=== PATIENT | female | born 1945 | race Asian ===

== ENCOUNTER 2016-10-25 11:50 | Inpatient (IN) | payer MEDICARE, OTHER ==
[~2016-10-25] VITALS: Ht 154.9 cm; Wt 65.6 kg
[~2016-10-25 11:50] MED LIST: AMIO200T2 PO; AMLO5TAB4 PO; APIX5TAB PO; ATOR80TA75 PO; CARAS PO; CARV12.579 PO; CLOP75TA27 PO; HYDR-3498 PO; HYDR-3672 PO; HYG25 PO; LEVO50TA83 PO; LIPA1CAP6 PO; LISI20TA11 PO; MONT10TA21 PO; NITR0.4T6 SL; PANT40VI7 PO
[2016-10-25] MEDS ORDERED: SODIUM CHLORIDE 0.9% 1L BAG IV* STA (13:14)
[2016-10-25] MEDS ORDERED: CEFEPIME 2GM/50 ML (PMX) 50 ML IVPB STA (13:14)
[2016-10-25] MEDS ORDERED: AMLO-147 PO (13:30)
[2016-10-25] MEDS ORDERED: VANCOMYCIN 1 GM (PMX) 250 ML IVPB ONE (13:30)
[2016-10-25] MEDS ORDERED: ACETAMINOPHEN 325 MG TAB PO ONE (13:30)
[2016-10-25] MEDS ORDERED: PANT40TA4 PO (13:32)
[2016-10-25] MEDS ORDERED: ISOS60TA PO (13:32)
[2016-10-25] MEDS ORDERED: ZOLP10TA5 PO (13:33)
[2016-10-25] MEDS ORDERED: METO50TA16 PO (13:33)
[2016-10-25] MEDS ORDERED: ASPI-664 PO (13:34)
[2016-10-25] MEDS ORDERED: MIRT7.5T8 PO (13:34)
[2016-10-25 13:36] VITALS: TEMP 100
[2016-10-25 13:42] LABS: ADD SCAN DIFF NO
[2016-10-25 13:46] LABS: BASOPHILS % 0.2 % (0.0-2.0); EOSINOPHILS % 0.1 % (0.0-7.0); HEMATOCRIT 31.5 % (37.0-47.0); LYMPHOCYTES # 2.1 10^3/ul (0.8-2.9); LYMPHOCYTES % 14.3 % (15.0-51.0); MEAN CORPUSCULAR HEMOGLOBIN 30.3 pg (29.0-33.0); MEAN CORPUSCULAR HGB CONC 31.7 g/dl (32.0-37.0); MEAN CORPUSCULAR VOLUME 95.5 fl (82.0-101.0); MEAN PLATELET VOLUME 10.8 fl (7.4-10.4); MONOCYTE # 1.4 10^3/ul (0.3-0.9); MONOCYTES % 9.4 % (0.0-11.0); NEUTROPHIL # 11.1 10^3/ul (1.6-7.5); NEUTROPHILS % 75.5 % (39.0-77.0); PLATELET COUNT 371 10^3/UL (140-415); RED CELL DISTRIBUTION WIDTH 12.8 % (11.5-14.5); WHITE BLOOD COUNT 14.7 10^3/ul (4.8-10.8)
[2016-10-25 13:54] LABS: INR 0.98
[2016-10-25 13:55] LABS: PARTIAL THROMBOPLASTIN TIME 32.4 Sec (25.0-35.0)
[2016-10-25 13:58] LABS: ALBUMIN 3.8 g/dl (3.3-4.9); BILIRUBIN,INDIRECT 0.4 mg/dl (0-1.1); BILIRUBIN,TOTAL 0.4 mg/dl (0.2-1.3); CALCIUM 8.7 mg/dl (8.4-10.2); CREATININE 1.62 mg/dl (0.44-1.00); POTASSIUM 4.3 mmol/L (3.5-5.1); TOTAL PROTEIN 7.6 g/dl (6.1-8.1)
--- NOTE | 2016-10-25 14:06 | RADRPT ---
PROCEDURE: XR Chest. CLINICAL INDICATION: Cough TECHNIQUE: Chest AP portable. COMPARISON: 11/26/2015 FINDINGS: The mediastinal structures are unremarkable. There is calcification of the thoracic aorta (consiste nt with atherosclerosis). There is mild cardiomegaly. There is congestive heart failure with pulmo nary edema (superimposed pneumonia cannot be ruled out). The pleural spaces are unremarkable. Ther e is diffuse osteopenia. No fracture identified. IMPRESSION: Mild cardiomegaly. Congestive heart failure with pulmonary edema (superimposed pneumonia cannot be ruled out). RPTAT: HGDB .Blayne Sweeney MD, Date Time Electronically viewed and signed by .Blayne Sweeney MD, on 10/25/2016 14:06 .B/
[2016-10-25 14:09] LABS: TROPONIN-I 0.014 ng/ml (0.00-0.12)
--- NOTE | 2016-10-25 14:28 | ERA ---
ER Documentation Chief Complaint Date/Time DATE: 10/25/16 TIME: 14:25 Chief Complaint COUGH & CONGESTION X6 DAYS, SAT 80% HPI Patient is a 71-year-old female with coronary disease, stroke, hypertension, and high cholesterol presents with shortness of breath. The daughter says that the mother started with a cold on Monday. Patient seemed confused and "out of it" on Monday per the daughter. The patient has not wanted to eat for the past few days. The patient has a strong cough which started today. The patient had a fever on Monday and was given Tylenol. There is no home oxygen. The patient was admitted a few months ago at [facility] per the daughter. Upon review of old medical records this the patient's fourth visit to the ER since 2013. The primary doctor is Dr. Gerald Roland. ROS All systems reviewed and are negative except as per history of present illness. Medications Home Meds Active Scripts Amiodarone Hcl* (Amiodarone Hcl*) 200 Mg Tablet, 200 MG PO DAILY for 30 Days, # 30 TAB Prov:RADHA PEÑA MD 12/06/15 Reported Medications Mirtazapine* (Mirtazapine*) 7.5 Mg Tablet, 7.5 MG PO HS, TAB 10/25/16 Aspirin* (Aspirin* EC) 81 Mg Tablet., 81 MG PO DAILY, TAB 10/25/16 Zolpidem Tartrate* (Zolpidem Tartrate*) 10 Mg Tablet, 10 MG PO QHS Y for INSOMNIA, #30 TAB 10/25/16 Metoprolol Succinate* (Toprol XL*) 50 Mg Tab.er.24h, 50 MG PO DAILY, #30 TAB 10/25/16 Pantoprazole* (Pantoprazole*) 40 Mg Tablet.dr, 40 MG PO AC BREAKFAST, TAB 10/25/16 Isosorbide Mononitrate* (Isosorbide Mononitrate*) 60 Mg Tab.er.24h, 60 MG PO DAILY, TAB 10/25/16 Amlodipine Besylate* (Amlodipine Besylate*) 10 Mg Tablet, 10 MG PO DAILY, #30 TAB 10/25/16 Montelukast Sodium* (Singulair*) 10 Mg Tablet, 10 MG PO QHS, #30 TAB 11/26/15 Clopidogrel Bisulfate (Clopidogrel) 75 Mg Tablet, 75 MG PO DAILY, #30 TAB 11/26/15 Atorvastatin* (Atorvastatin*) 80 Mg Tablet, 80 MG PO HS, TAB 03/01/14 Nitroglycerin* (Nitroglycerin* SL) 0.4 Mg Tab.subl, 0.4 MG SL Q5MIN Y for CHEST PAIN, BOTTLE 03/01/14 Discontinued Reported Medications Amlodipine Besylate* (Norvasc*) 5 Mg Tablet, 5 MG PO DAILY, TAB 11/26/15 Vpwskp-Ebgftxtd-Hhfsudu* ([place] CARPIO* 24,000) 24,000 L-76,000-120,000 Unit Capsule., 1 CAP PO TID, CAP 03/01/14 Discontinued Scripts Chlorthalidone* (Hygroton*) 25 Mg Tab, 25 MG PO DAILY for 60 Days, TAB Prov:MONI LEACH 12/10/15 Levothyroxine Sodium* (Synthroid*) 50 Mcg Tablet, 50 MCG PO BEFORE BREAKFAST, # 30 TAB Prov:RADHA PEÑA MD 12/06/15 Lisinopril* (Lisinopril*) 20 Mg Tablet, 40 MG PO DAILY for 60 Days, #60 TAB Prov:RADHA PEÑA MD 12/06/15 Sucralfate* (Carafate* (Pediatric)) 100 Mg/Ml Susp, 1 GM PO QID for 30 Days, # 120 Prov:RADHA PEÑA MD 12/06/15 Pantoprazole* (Protonix* IV) 40 Mg Soln, 40 MG PO BID@06,18 for 30 Days, #60 Prov:RADHA PEÑA MD 12/06/15 Hydrocodone Bit/Acetaminophen (Anexsia 5-325 Mg Tablet) 1 Tab Tablet, 1 TAB PO Q6H Y for MODERATE PAIN LEVEL 4-6 for 30 Days, #120 TAB Prov:RADHA PEÑA MD 12/06/15 Hydralazine Hcl* (Hydralazine Hcl*) 50 Mg Tab, 50 MG PO TID for 30 Days, #90 TAB Prov:RADHA PEÑA MD 12/06/15 Carvedilol* (Carvedilol*) 12.5 Mg Tablet, 12.5 MG PO BID for 30 Days, #60 TAB Prov:RADHA PEÑA MD 12/06/15 Apixaban* (Eliquis*) 5 Mg Tablet, 2.5 MG PO BID for 30 Days, #60 TAB Prov:RADHA PEÑA MD 12/06/15 Allergies Allergies: Coded Allergies: No Known Allergy (Unverified , 10/25/16) PMhx/Soc History of Surgery: Yes (stent placementx 3) Anesthesia Reaction: No Hx Neurological Disorder: Yes (CVA-2016) Hx Respiratory Disorders: No Hx Cardiac Disorders: Yes (HIGH BP,CAD) Hx Psychiatric Problems: No Hx Miscellaneous Medical Probl: Yes (CAD, HTN, dyslipidemia, diastolic dysfucntion) Hx Alcohol Use: No Hx Substance Use: No Hx Tobacco Use: No Smoking Status: Former smoker FmHx Family History: diabetes Physical Exam Vitals Vital Signs Date Time Temp Pulse Resp B/P Pulse Ox O2 Delivery O2 Flow Rate FiO2 10/25/16 13:36 100.0 59 29 96/77 97 Non Rebreather 15.0 10/25/16 13:35 Non Rebreather 15.0 10/25/16 13:33 Non Rebreather 15 10/25/16 12:14 99.3 61 28 154/70 80 Physical Exam Const: Mild distress secondary to shortness of breath Head: Atraumatic Eyes: Normal Conjunctiva ENT: Normal External Ears, Nose and Mouth. Neck: Full range of motion..~ No meningismus. Resp: Rhonchorous breath sounds bilaterally Cardio: Regular rate and rhythm, no murmurs Abd: Soft, non tender, non distended. Normal bowel sounds Skin: No petechiae or rashes Back: No midline or flank tenderness Ext: No cyanosis, or edema Neur: Awake but dense weakness of the left upper extremity secondary to stroke previously Result Diagram: 10/25/16 1335 Results 24 hrs Laboratory Tests Test 10/25/16 13:35 White Blood Count 14.710^3/ul Red Blood Count 3.3010^6/ul Hemoglobin 10.0g/dl Hematocrit 31.5% Mean Corpuscular Volume 95.5fl Mean Corpuscular Hemoglobin 30.3pg Mean Corpuscular Hemoglobin Concent 31.7g/dl Red Cell Distribution Width 12.8% Platelet Count 39710^3/UL Mean Platelet Volume 10.8fl Neutrophils % 75.5% Lymphocytes % 14.3% Monocytes % 9.4% Eosinophils % 0.1% Basophils % 0.2% Nucleated Red Blood Cells % 0.0/100WBC Neutrophils # 11.110^3/ul Lymphocytes # 2.110^3/ul Monocytes # 1.410^3/ul Eosinophils # 0.010^3/ul Basophils # 0.010^3/ul Nucleated Red Blood Cells # 0.010^3/ul Prothrombin Time 13.0Sec Prothrombin Time Ratio 1.0 INR International Normalized Ratio 0.98 Activated Partial Thromboplast Time 32.4Sec Current Medications Medications (Trade) Dose Ordered Sig/Sheldon Route PRN Reason Start Time Stop Time Status Last Admin Dose Admin Sodium Chloride 2110 ml 2,110 ml BOLUS OVER 2 HOURS STAT IV* 10/25/16 13:14 10/25/16 13:17 DC 10/25/16 13:41 Cefepime HCl 50 ml @ 100 mls/hr ONCE STAT IVPB 10/25/16 13:14 10/25/16 13:43 DC 10/25/16 14:12 Vancomycin HCl (Vancocin) 250 ml @ 125 mls/hr ONCE ONCE IVPB 10/25/16 13:30 10/25/16 15:29 Acetaminophen (Tylenol Tab) 650 mg ONCE ONCE PO 10/25/16 13:30 10/25/16 13:31 DC 10/25/16 13:41 Ondansetron HCl (Zofran Inj) 4 mg BRIDGE ORDER PRN IV NAUSEA AND/OR VOMITING 10/25/16 14:30 10/26/16 14:29 Acetaminophen (Tylenol Tab) 650 mg ER BRIDGE PRN PO MILD PAIN/FEVER 10/25/16 14:30 10/26/16 14:29 Procedures/MDM EKG read by me: Rate/Rhythm: Regular rate and rhythm at a rate of 63 Intervals: Prolonged QTC of 515 Impression: Sinus rhythm with prolonged QTC Chest x-ray shows cardiomegaly with pulmonary edema and possible pneumonia per radiology. Patient is a 71-year-old female with multiple comorbidities who presents with symptoms consistent with acute pneumonia. The patient has hypoxia as well. The patient will be given 30 mL/kg fluid bolus as well as vancomycin and cefepime empirically for a possible healthcare associated pneumonia. The patient will be admitted to the care of Dr. Mcdonnell from the panel team as the patient has been admitted to the panel team in the past. Prognosis is poor given the patient's age and comorbidities. At this point I doubt sepsis but the patient is pending a lactic acid at this time. The patient will be admitted to a medical surgical bed. At this point I doubt pneumothorax or pulmonary embolism. I doubt acute coronary syndrome. Critical Care: Time: 35 minutes excluding all billable procedures. Treatments/Evaluations: Close monitoring and treatment of unstable vital signs, cardiorespiratory, and neurologic status, while maintaining tight balance of fluid, respiratory, and cardiac interventions. Departure Diagnosis: Primary Impression: Hypoxia Additional Impressions: Cough Pneumonia Qualified Code: J18.9 - Pneumonia due to infectious organism, unspecified laterality, unspecified part of lung Leukocytosis Qualified Code: D72.829 - Leukocytosis, unspecified type Anemia Qualified Code: D64.9 - Anemia, unspecified type Condition: Serious AJ LUTZ MD Oct 25, 2016 14:28
[2016-10-25] MEDS ORDERED: ACETAMINOPHEN 325 MG TAB PO PRN (14:30)
[2016-10-25] MEDS ORDERED: ONDANSETRON 4 MG INJ IV PRN ×2 (14:30→15:00)
[2016-10-25] MEDS ORDERED: NACL 0.9% 3 ML SYG IV SCH (15:00)
[2016-10-25] MEDS ORDERED: NA PHOSPHATE/BIPHOS 133 ML ENEMA PR PRN (15:00)
[2016-10-25] MEDS ORDERED: NITROGLYCERIN (SL) 0.4 MG TAB SL PRN (15:00)
[2016-10-25] MEDS ORDERED: VANCOMYCIN IV PER PHARMACY XX SCH (15:00)
[2016-10-25] MEDS ORDERED: MAGNESIUM HYDROXIDE 30ML CUP PO PRN (15:00)
[2016-10-25] MEDS ORDERED: DOCUSATE SODIUM 100 MG CAP PO PRN (15:00)
[2016-10-25] MEDS ORDERED: LORAZEPAM 2 MG INJ IV PRN (15:00)
[2016-10-25] MEDS ORDERED: ZOLPIDEM 5 MG TAB PO PRN (15:00)
[2016-10-25] MEDS ORDERED: hydrALAzine 20 MG INJ IV PRN (15:00)
--- NOTE | 2016-10-25 15:55 | HP ---
DATE OF ADMISSION: 10/25/2016 CHIEF COMPLAINT: Shortness of breath and cough. HISTORY OF PRESENT ILLNESS: A 71-year-old female with past medical history of coronary artery disea se status post PCI placement x3, high cholesterol, stroke 1 year ago, essential hypertension, who wa s brought in by a daughter because she has been having cough and chest congestion for the last 4 to 5 days. She has been having a productive cough at home, also subjective fevers at home. She took N yquil and Tylenol which did not relieve her symptoms. She has also had decreased appetite as well. The patient was not getting better over the weekend, so the caregiver and the daughter became jet rned and decided to bring her in to the emergency room. She had no headaches, dizziness or loss of consciousness. No upper or lower GI bleeding. No nausea, vomiting. No abdominal pain. No changes in her bowel movements. Apparently, the patient has been admitted a few months ago to [facility] per the daughter. Her primary care doctor is Dr. Gerald Roland. PAST MEDICAL HISTORY: As stated above. ALLERGIES: NO KNOWN DRUG ALLERGIES. HOME MEDICATIONS: 1. Plavix 75 mg daily. 2. Amiodarone 200 mg daily. 3. Amlodipine 10 mg daily. 4. Atorvastatin 80 mg at bedtime. 5. Imdur 60 mg daily. 6. Toprol-XL 50 mg daily. 7. Nitroglycerin 0.4 mg sublingual every 5 minutes p.r.n. 8. Aspirin 81 mg daily. 9. Mirtazapine 7.5 mg at bedtime. 10. Ambien 10 mg at bedtime p.r.n. 11. Singulair 10 mg at bedtime. 12. Protonix 40 mg every morning. PAST SURGICAL HISTORY: Cardiac stent placement x3 in the past. SOCIAL HISTORY: Former smoker. She used to smoke half a pack of cigarettes a day for the last 30 y ears, but she quit 5 years ago. No alcohol or drug use. FAMILY HISTORY: Noncontributory. PHYSICAL EXAMINATION: VITAL SIGNS: Today, temperature max 100.0, pulse 59 to 61, respirations 29, blood pressure 96 to 15 4 systolic/77 to 70 diastolic, saturating at 97% on nonrebreather, a flow rate of 15. GENERAL: The patient is sitting up in bed on nonrebreather. Daughter is at the bedside. HEENT: Pupils equal, round, react to light. Extraocular muscles intact. NECK: Supple, no thyromegaly. LUNGS: Rhonchus breath sounds bilaterally, no wheezes. CARDIOVASCULAR: S1, S2 heard. No rubs or gallops. ABDOMEN: Soft, nontender, nondistended. Normal bowel sounds. No rebound or guarding. MUSCULOSKELETAL: She has got 1+ pitting edema bilateral lower extremities to the mid calves. NEUROLOGIC: No focal deficits. LABORATORY DATA: WBC 14.0, hemoglobin 10.0, hematocrit 31.5, platelets of 371. Sodium 136, potassi um 4.3, chloride 102, CO2 of 25, BUN of 37, creatinine 1.6. Back when she was here a year ago, her creatinine was less than 1. Glucose is 158. Lactic acid is 1.2. LFTs are essentially normal excep t AST is a little high at 62. UA is pending. There was a chest x-ray performed that shows mild cardiomegaly, congestive heart failure with pulmon flex edema, superimposed pneumonia cannot be ruled out. ASSESSMENT AND PLAN: A 71-year-old female coming in with shortness of breath and cough with signs o f pneumonia and congestive heart failure exacerbation and renal insufficiency. 1. Shortness of breath. Again secondary to looks like a combination of pneumonia and congestive he art failure, so we will admit her. We will get a cardiology consult. Get an echocardiogram as well . Hold her home blood pressure medicines for now. Consider starting Lasix, although again she has got renal insufficiency, we have to be cautious about that. Keep the head of the bed elevated great er than 30 degrees. Morphine p.r.n., oxygen supplementation as well. Nitroglycerin p.r.n. We will order for check TSH, A1c, lipid panel. Get PT and OT consults as well and speech therapy consult. 2. Renal insufficiency. We will get a renal consult as well and hold off on fluids for now since s he has got signs of congestive heart failure exacerbation. 3. History of coronary artery disease status post stent placement x3 in the past. Again, we are ho lding her home blood pressure medicines except for aspirin and Plavix. We will continue those. We will get a cardiology consult, again repeat the echo. 4. History of stroke in the past. Again, continue aspirin and Plavix. Monitor for now and get PT consult 5. Essential hypertension. Blood pressure is presently stable. Continue to monitor for now. 6. High cholesterol. Check a lipid panel. 7. Gastrointestinal prophylaxis, proton pump inhibitor. 8. Deep venous thrombosis prophylaxis, heparin subcutaneously. Dictated By: ROSS LAY Conf#: [id number] DID#: [id number]
[2016-10-25 15:58] LABS: CK-MB 0.54 ng/ml (0.0-2.4)
[2016-10-25 16:01] LABS: TROPONIN-I 0.012 ng/ml (0.00-0.12)
[2016-10-25] MEDS: FUROSEMIDE 40 MG INJ IV SCH (17:35)
[2016-10-25 17:39] LABS: ALBUMIN 3.2 g/dl (3.3-4.9); POTASSIUM 4.3 mmol/L (3.5-5.1)
[2016-10-25 17:41] LABS: CREATININE 1.48 mg/dl (0.44-1.00)
[2016-10-25 17:42] LABS: ALBUMIN/GLOBULIN RATIO 0.88; BILIRUBIN,INDIRECT 0.4 mg/dl (0-1.1); BILIRUBIN,TOTAL 0.4 mg/dl (0.2-1.3); CALCIUM 7.5 mg/dl (8.4-10.2); TOTAL PROTEIN 6.8 g/dl (6.1-8.1)
[2016-10-25] MEDS ORDERED: PIPER-TAZO 3.375 GM IV (PMX) 100 ML IVPB SCH (18:00)
--- NOTE | 2016-10-25 18:09 | QN ---
Documentation Comment [id number] RENAL CONSULT A/P CHF DEMI POSS SYS HEART FAILURE OLD CVA ASHD LEUCOCYTOSIS PLAN DIURETIC URINE GHADA CARCAMO MD Oct 25, 2016 18:09
[2016-10-25 20:20] VITALS: BP 119/43; RESP 18
[2016-10-25 20:24] VITALS: PULSE 45
[2016-10-25 21:00] VITALS: Ht 154.9 cm; Wt 65.6 kg
[2016-10-25 21:52] LABS: CREATINE KINASE 72 IU/L (23-200)
[2016-10-25 22:01] LABS: CK-MB 1.13 ng/ml (0.0-2.4)
[2016-10-25 22:06] LABS: TROPONIN-I < 0.012 ng/ml (0.00-0.12)
[2016-10-25] MEDS: MONTELUKAST 10 MG TAB PO SCH (22:17)
[2016-10-25] MEDS: ATORVASTATIN 80 MG TAB PO SCH (22:17)
[2016-10-25] MEDS: MIRTAZAPINE 15 MG TAB PO SCH (22:18)
[2016-10-25] MEDS: PIPER-TAZO 3.375 GM IV (PMX) 100 ML IVPB SCH (22:18)
[2016-10-25] MEDS: HEPARIN 5,000 UNIT/0.5 ML VIAL SC SCH (22:45)
[2016-10-25 23:44] VITALS: BP 130/60; RESP 18
[2016-10-26] VITALS (13 sets, daily range): BP systolic 107–152; BP diastolic 54–72; PULSE 44–64; RESP 17–20
[2016-10-26] MEDS: ALBUTEROL/IPRATROPIUM (NEB) 3 ML AMP HHN PRN (03:31)
--- NOTE | 2016-10-26 05:49 | CONS ---
DATE OF ADMISSION: 10/25/2016 DATE OF CONSULTATION: TYPE OF CONSULTATION: Nephrology. Thank you, Dr. Bailey, for kindly asking me to see this patient in nephrology consultation. HISTORY OF PRESENT ILLNESS: The patient is a 71-year-old female whose family is at bedside, has history of CAD, hypertension, history of coronary angiogram and stenting in the past. The patient has a history of carotid artery disease, history of carotid endarterectomy. The patient has a history of CVA, history of hypertension, dyslipidemia, history of paroxysmal atrial fibrillation, history of esophagitis, history of EGD, history of gastritis, presented with shortness of breath and noted to have electrolyte imbalance, so nephrology consultation requested. PAST MEDICAL HISTORY: Briefly as mentioned above, CAD, atrial fibrillation, carotid endarterectomy, hypertension. The patient's other history includes the patient has a history of CVA, insomnia, dyslipidemia. ALLERGY HISTORY: LISTED NEGATIVE. FAMILY HISTORY: Noncontributory. SOCIAL HISTORY: Negative. MEDICATION HISTORY: The patient is on: 1. Amiodarone. 2. Amlodipine. 3. Aspirin. 4. Lipitor. 5. Plavix. 6. Isosorbide. 7. Metoprolol. 8. Mirtazapine. 9. Singulair. 10. Nitroglycerin. 11. Protonix. 12. Ambien. Currently patient is on: 1. Tylenol. 2. [place]. 3. Albuterol. 4. Aspirin. 5. Lipitor. 6. Plavix. 7. Docusate sodium. 8. Lasix. 9. Heparin. 10. Hydralazine. 11. Ativan. 12. Morphine. 13. Nitroglycerin. 14. Zofran. 15. Protonix. 16. Zosyn. 17. Vancomycin. 18. Ambien. REVIEW OF SYSTEMS: RESPIRATORY: The patient complaining of shortness of breath. ____. CARDIOVASCULAR: No chest pain, palpitation. ABDOMEN: Unremarkable. EXTREMITIES: Swelling of the lower extremities. CENTRAL NERVOUS SYSTEM: History of CVA, left-sided weakness. PHYSICAL EXAMINATION: GENERAL: The patient is awake, alert, short of breath, on oxygen. VITAL SIGNS: Pulse 59, blood pressure 96/77. HEENT: Head is atraumatic, normocephalic. Pupils are equal and reactive. No pale conjunctivae or icterus. NECK: Supple. LUNGS: Decreased air entry at both bases and rales noted. CARDIOVASCULAR: S1, S2 normal. Systolic murmur noted. ABDOMEN: Soft, nontender. Bowel sounds present. No palpable mass or hepatosplenomegaly. EXTREMITIES: There is no cyanosis, clubbing. Edema positive. CENTRAL NERVOUS SYSTEM: The patient is awake, alert. Left-sided weakness noted. LABORATORY DATA: WBC 14.7, hematocrit 31.5, platelet count of 371. Sodium 138 , potassium 4.3, BUN 35, creatinine 1.48. ca 7.5. BNP . Albumin 3.2, globulin 3.60. IMAGING: Patient's chest x-ray: Congestive heart failure with pulmonary edema. IMPRESSION: 1. The patient has acute congestive heart failure. 2. Acute kidney injury due to congestive heart failure, possible systolic heart failure. 3. The patient has leukocytosis. 4. Hypocalcemia. 5. Elevated BNP. 6. History of paroxysmal atrial fibrillation. 7. History of left carotid endarterectomy. 8. History of congestive heart failure. PLAN: Obtain UA, urine sodium and creatinine, urine albumin/creatinine ratio. The patient is currently on diuretic, will benefit from 2D echo. The patient's electrolytes will be monitored very closely. The patient will have further recommendation made when above data is available and during course of hospitalization. Thank you, Dr. Bailey, for kindly asking me to see this patient in nephrology consultation. Dictated By: GHADA VALENCIA MD BS/NTS Conf#: [id number] DID#: [id number] MTDD
[2016-10-26] MEDS: PIPER-TAZO 3.375 GM IV (PMX) 100 ML IVPB SCH ×3 (06:08→22:06)
[2016-10-26 07:09] LABS: ADD UMIC YES; URINE BILIRUBIN (Dip) NEGATIVE (NEGATIVE); URINE BLOOD (Dip) TRACE (NEGATIVE); URINE COLOR LT. YELLOW (YELLOW); URINE GLUCOSE (Dip) NEGATIVE (NEGATIVE); URINE KETONES (Dip) NEGATIVE (NEGATIVE); URINE LEUKOCYTE ESTERASE (Dip) NEGATIVE (NEGATIVE); URINE NITRITE (Dip) NEGATIVE (NEGATIVE); URINE TOTAL PROTEIN (Dip) TRACE (NEGATIVE); URINE UROBILINOGEN (Dip) 0.2 E.U./dL (0.1-1.0)
[2016-10-26 07:18] LABS: URIC ACID CRYSTALS,URINE MODERATE; URINE RBCS 0-2 /HPF (0)
[2016-10-26 08:01] LABS: CHOL/HDL RATIO 2.5 RATIO
[2016-10-26 08:49] LABS: ADD SCAN DIFF NO
[2016-10-26 08:50] LABS: BASOPHILS % 0.1 % (0.0-2.0); EOSINOPHILS % 0.2 % (0.0-7.0); HEMATOCRIT 29.9 % (37.0-47.0); HEMOGLOBIN 9.1 g/dl (12.0-16.0); LYMPHOCYTES # 1.2 10^3/ul (0.8-2.9); LYMPHOCYTES % 8.2 % (15.0-51.0); MEAN CORPUSCULAR HEMOGLOBIN 29.5 pg (29.0-33.0); MEAN CORPUSCULAR HGB CONC 30.4 g/dl (32.0-37.0); MEAN CORPUSCULAR VOLUME 97.1 fl (82.0-101.0); MEAN PLATELET VOLUME 10.4 fl (7.4-10.4); MONOCYTE # 1.1 10^3/ul (0.3-0.9); MONOCYTES % 7.8 % (0.0-11.0); NEUTROPHIL # 11.9 10^3/ul (1.6-7.5); NEUTROPHILS % 83.1 % (39.0-77.0); PLATELET COUNT 361 10^3/UL (140-415); RED BLOOD COUNT 3.08 10^6/ul (4.20-5.40); RED CELL DISTRIBUTION WIDTH 12.6 % (11.5-14.5); WHITE BLOOD COUNT 14.4 10^3/ul (4.8-10.8)
[2016-10-26] MEDS: PANTOPRAZOLE (EC) 40 MG TAB PO SCH (09:14)
[2016-10-26] MEDS: CLOPIDOGREL 75 MG TAB PO SCH (09:14)
[2016-10-26] MEDS: ASPIRIN (EC) 81 MG TAB PO SCH (09:14)
[2016-10-26] MEDS: FUROSEMIDE 40 MG INJ IV SCH (09:14)
[2016-10-26] MEDS: HEPARIN 5,000 UNIT/0.5 ML VIAL SC SCH ×2 (09:25→21:00)
[2016-10-26 09:26] LABS: THYROID STIMULATING HORMONE 4.58 MIU/L (0.465-4.680)
--- NOTE | 2016-10-26 10:31 | PN ---
Date/Time of Note Date/Time of Note DATE: 10/26/16 TIME: 10:27 Assessment/Plan VTE Prophylaxis VTE Prophylaxis Intervention: heparin Lines/Catheters IV Catheter Type (from Nrs): Saline Lock Urinary Cath still in place: No Assessment/Plan Chief Complaint/Hosp Course ASSESSMENT AND PLAN: 71-year-old female coming in with shortness of breath and cough with signs of pneumonia and congestive heart failure exacerbation and renal insufficiency. 1. Shortness of breath. Again secondary to looks like a combination of pneumonia and congestive heart failure - f/u cardiology consult rec's, echocardiogram as well. - Hold her home blood pressure medicines for now. - continue IV Lasix, although again she has got renal insufficiency, we have to be cautious about that. - Keep the head of the bed elevated greater than 30 degrees. Morphine p.r.n., oxygen supplementation as well. Nitroglycerin p.r.n. -f/u PT and OT consults as well - will check ABG and get pulm consult as well. 2. Renal insufficiency - appreciate renal consult as well - continue hold off on fluids for now since she has got signs of congestive heart failure exacerbation. - monitor Bun/Cr levels, I/O's 3. History of coronary artery disease status post stent placement x3 in the past. - Again, we are holding her home blood pressure medicines - continue aspirin and Plavix, cardiology consult, again f/u echo. 4. History of stroke in the past. Again, continue aspirin and Plavix. Monitor for now and get PT consult 5. Essential hypertension. Blood pressure is presently stable. Continue to monitor for now. 6. High cholesterol. Check a lipid panel. 7. Gastrointestinal prophylaxis, proton pump inhibitor. 8. Deep venous thrombosis prophylaxis, heparin subcutaneously. Problems: Subjective 24 Hr Interval Summary Free Text/Dictation Pt still requiring NRB, had some desat when ambulating today. Seen by ST and renal teams. Exam/Review of Systems Vital Signs Vitals Vital Signs Date Time Temp Pulse Resp B/P Pulse Ox O2 Delivery O2 Flow Rate FiO2 10/26/16 08:18 60 10/26/16 07:17 98.6 20 151/67 96 10/26/16 03:33 Non Rebreather Mask 15.0 100 Intake and Output 10/25/16 10/25/16 10/26/16 15:00 23:00 07:00 Intake Total 50 ml 2460 ml 120 ml Balance 50 ml 2460 ml 120 ml Exam GENERAL: The patient is sitting up in bed on nonrebreather. Daughter is at the bedside. HEENT: Pupils equal, round, react to light. Extraocular muscles intact. NECK: Supple, no thyromegaly. LUNGS: Rhonchus breath sounds bilaterally, no wheezes. CARDIOVASCULAR: S1, S2 heard. No rubs or gallops. ABDOMEN: Soft, nontender, nondistended. Normal bowel sounds. No rebound or guarding. MUSCULOSKELETAL: She has got 1+ pitting edema bilateral lower extremities to the mid calves. NEUROLOGIC: No focal deficits. Results Result Diagram: 10/26/16 0653 10/25/16 1700 Results 24 hrs Laboratory Tests Test 10/25/16 13:35 10/25/16 15:30 10/25/16 17:00 10/25/16 21:25 White Blood Count 14.7 H Red Blood Count 3.30 L Hemoglobin 10.0 L Hematocrit 31.5 L Mean Corpuscular Volume 95.5 Mean Corpuscular Hemoglobin 30.3 Mean Corpuscular Hemoglobin Concent 31.7 L Red Cell Distribution Width 12.8 Platelet Count 371 Mean Platelet Volume 10.8 #H Neutrophils % 75.5 Lymphocytes % 14.3 L Monocytes % 9.4 Eosinophils % 0.1 Basophils % 0.2 Nucleated Red Blood Cells % 0.0 Neutrophils # 11.1 H Lymphocytes # 2.1 Monocytes # 1.4 H Eosinophils # 0.0 Basophils # 0.0 Nucleated Red Blood Cells # 0.0 Prothrombin Time 13.0 Prothrombin Time Ratio 1.0 INR International Normalized Ratio 0.98 Activated Partial Thromboplast Time 32.4 Sodium Level 136 138 Potassium Level 4.3 4.3 Chloride Level 102 107 Carbon Dioxide Level 25 22 Anion Gap 13 13 Blood Urea Nitrogen 37 H 35 H Creatinine 1.62 H 1.48 H Glucose Level 158 132 Lactic Acid Level 1.2 1.3 0.7 Calcium Level 8.7 7.5 L Total Bilirubin 0.4 0.4 Direct Bilirubin 0.00 0.00 Indirect Bilirubin 0.4 0.4 Aspartate Amino Transf (AST/SGOT) 62 H 58 H Alanine Aminotransferase (ALT/SGPT) 42 37 Alkaline Phosphatase 212 H 167 H Troponin I 0.014 0.012 < 0.012 Total Protein 7.6 6.8 Albumin 3.8 3.2 L Globulin 3.80 H 3.60 H Albumin/Globulin Ratio 1.00 0.88 Creatine Kinase 71 72 Creatine Kinase Index 0.8 1.6 Creatinine Kinase MB (Mass) 0.54 1.13 B-Type Natriuretic Peptide 5960 H Free Thyroxine 1.56 Test 10/26/16 06:30 10/26/16 06:53 Urine Color LT. YELLOW Urine Clarity CLEAR Urine pH 5.5 Urine Specific [place] 1.020 Urine Ketones NEGATIVE Urine Nitrite NEGATIVE Urine Bilirubin NEGATIVE Urine Urobilinogen 0.2 E.U./dL Urine Leukocyte Esterase NEGATIVE Urine Microscopic RBC 0-2 Urine Microscopic WBC 0-2 Urine Epithelial Cells OCCASIONAL Urine Uric Acid Crystals MODERATE Urine Hemoglobin TRACE Urine Random Creatinine 60.72 Urine Random Sodium 59 Urine Glucose NEGATIVE Urine Total Protein TRACE White Blood Count 14.4 H Red Blood Count 3.08 L Hemoglobin 9.1 L Hematocrit 29.9 L Mean Corpuscular Volume 97.1 Mean Corpuscular Hemoglobin 29.5 Mean Corpuscular Hemoglobin Concent 30.4 L Red Cell Distribution Width 12.6 Platelet Count 361 Mean Platelet Volume 10.4 Neutrophils % 83.1 H Lymphocytes % 8.2 L Monocytes % 7.8 Eosinophils % 0.2 Basophils % 0.1 Nucleated Red Blood Cells % 0.0 Neutrophils # 11.9 H Lymphocytes # 1.2 Monocytes # 1.1 H Eosinophils # 0.0 Basophils # 0.0 Nucleated Red Blood Cells # 0.0 Triglycerides Level 94 Cholesterol Level 77 L LDL Cholesterol, Calculated 28 HDL Cholesterol 30 L Cholesterol/HDL Ratio 2.5 Thyroid Stimulating Hormone (TSH) 4.580 Medications Medications Current Medications Ondansetron HCl (Zofran Inj) 4 mg Q6H PRN IV NAUSEA AND/OR VOMITING; Start at 15:00 Acetaminophen (Tylenol Tab) 650 mg Q6H PRN PO PAIN LEVEL 1-3 OR FEVER; Start at 15:00 Acetaminophen/ Hydrocodone Bitart ([place] (5/325)) 1 tab Q6H PRN PO MODERATE PAIN LEVEL 4-6; Start 10/25/16 at 15:00 Morphine Sulfate (morphine) 2 mg Q4H PRN IV SEVERE PAIN LEVEL 7-10; Start 10/25 at 15:00 Docusate Sodium (Colace) 100 mg Q12H PRN PO CONSTIPATION; Start 10/25/16 at 15: 00 Magnesium Hydroxide (Milk Of Mag) 30 ml DAILY PRN PO CONSTIPATION; Start at 15:00 Sodium Biphosphate/ Sodium Phosphate (Fleet Enema) 133 ml DAILY PRN [place] CONSTIPATION; Start 10/25/16 at 15:00 Heparin Sodium (Porcine) (Heparin (5000 Units/0.5 ml)) 5,000 unit Q12 SC Last administered on 10/26/16 09:25; Admin Dose 5,000 UNIT; Start 10/25/16 at 21:00 Lorazepam (Ativan) 0.5 mg Q6H PRN IV ANXIETY; Start 10/25/16 at 15:00 Vancomycin HCl (Vanco Iv Per Pharmacy) VANCOMYCIN PER PHARMACY NOTE XX ; Start 10/25/16 at 15:00 Hydralazine HCl (Apresoline) 10 mg Q6H PRN IV ELEVATED BLOOD PRESSURE; Start at 15:00 Nitroglycerin (Nitroglycerin (Sl Tab) 0.4 Mg) 1 tab Q5M PRN SL ANGINA; Start at 15:00 Aspirin (Halfprin) 81 mg DAILY PO Last administered on 10/26/16 09:14; Admin Dose 81 MG; Start 10/26/16 at 09:00 Atorvastatin Calcium (Lipitor) 80 mg HS PO Last administered on 10/25/16 22:17 ; Admin Dose 80 MG; Start 10/25/16 at 21:00 Clopidogrel Bisulfate (plaVIX) 75 mg DAILY PO Last administered on 10/26/16 09 :14; Admin Dose 75 MG; Start 10/26/16 at 09:00 Mirtazapine (Remeron) 7.5 mg HS PO Last administered on 10/25/16 22:18; Admin Dose 7.5 MG; Start 10/25/16 at 21:00 Montelukast Sodium (Singulair) 10 mg QHS PO Last administered on 10/25/16 22: 17; Admin Dose 10 MG; Start 10/25/16 at 21:00 Furosemide 40 mg 40 mg DAILY IV Last administered on 10/26/16 09:14; Admin Dose 40 MG; Start 10/25/16 at 15:30 Piperacillin Sod/ Tazobactam Sod 100 ml @ 200 mls/hr Q8 IVPB Last administered on 10/26/16t 06:08; Admin Dose 200 MLS/HR; Start 10/25/16 at 22:00 Vancomycin HCl/ Sodium Chloride (Vancocin/NS) 150 ml @ 75 mls/hr Q24H IVPB ; Start 10/26/16 at 12:00 ROSS ROJO Oct 26, 2016 10:31
[2016-10-26 10:59] LABS: CALCIUM 8.1 mg/dl (8.4-10.2); CREATININE 1.39 mg/dl (0.44-1.00); MAGNESIUM 2.5 mg/dl (1.7-2.5); PHOSPHORUS 4.1 mg/dl (2.5-4.9); POTASSIUM 3.9 mmol/L (3.5-5.1)
[2016-10-26] MEDS: ACETAMINOPHEN 325 MG TAB PO PRN ×2 (11:51→17:52)
[2016-10-26] MEDS ORDERED: VANCOMYCIN 750 MG in SOD CHLORIDE 0.9% 150 ML IVPB SCH (12:00)
[2016-10-26 12:04] LABS: AADO2 Arterial 585.9 mmHg (7.0-24.0); Allen Test ACCEPTAB; Arterial Base Excess -2.1 mmol/L (-3.0-3); Arterial COHb 0.2 % (0.0-3.0); Arterial Fraction of Oxyhgb 95.9 % (93.0-99.0); Arterial HCO3 22.6 mmol/L (22.0-26.0); Arterial MetHb 0.3 % (0.0-1.5); Arterial Total Hemglobin 10.4 g/dl (12.0-18.0); MODE MASK - NRB
[2016-10-26 13:39] LABS: PROTEIN/CREAT RATIO 0.92 RATIO
--- NOTE | 2016-10-26 14:59 | CONS ---
Date/Time of Note Date/Time of Note DATE: 10/26/16 TIME: 14:54 Assessment/Plan Assessment/Plan Additional Assessment/Plan Chest x-ray was reviewed from yesterday which is showing cardio megaly with pulmonary edema. Assessment recommendations; 1. Patient admitted with CHF exacerbation likely from underlying cardiomyopathy. 2. Difficult to rule out superimposed bronchopneumonia. 3. History of hypertension. 4. History of CVA. 5. History of renal insufficiency. Discontinue vancomycin. Add oral Zithromax 500 mg daily. Obtain a 2D echocardiogram. Continue Lasix. Consultation Date/Type/Reason Admit Date/Time Oct 25, 2016 at 14:22 Date of Consultation: Oct 26, 2016 Type of Consultation: Pulmonary Reason for Consultation Pulmonary consultations obtained for evaluation of shortness of breath. History presenting any; patient is a 71-year-old oriented lady who was admitted yesterday came in from home with complaints of shortness of breath going on for the last 3 or 4 days. No history of any fever or chest pain or angina. According to the patient's daughter the patient was doing well prior to the episode. No history of any recent nausea vomiting. There is no history of any high fever, myalgias or arthralgias or sore throat. Past medical history; next 1. History of coronary artery disease status post angioplasty. 2. It is not clear whether patient has any history of congestive heart failure. 3. History of CVA with left hemiplegia. 4. Renal insufficiency. 5. History of hyperlipidemia. 6. History of hypertension. 7. History of cardiac arrhythmia. Medications; were reviewed. Allergies; none. Social history; patient quit smoking 5 years ago has a 97-90-fjnc-year smoking history. No swelling or drug abuse. Family history; patient is . Has 2 daughters. 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 Review of systems; denies any headache, seizures. Any sinus symptoms. Any sore throat, dysphagia. Denies any chest pain, angina. Complains of shortness of breath. Complains of scant cough. Denies any abdominal pain, nausea vomiting. Any melena or hematochezia. Denies any edema. Complains of mild orthopnea. General exam; elderly lady, awake currently in no distress. Past Surgical History Past Surgical Hx: no surgical history Social History Smoking Status: Former smoker Exam/Review of Systems Vital Signs Vitals Vital Signs Date Time Temp Pulse Resp B/P Pulse Ox O2 Delivery O2 Flow Rate FiO2 10/26/16 12:07 64 10/26/16 11:22 98.6 20 146/67 98 10/26/16 03:33 Non Rebreather Mask 15.0 100 Intake and Output 10/25/16 10/25/16 10/26/16 15:00 23:00 07:00 Intake Total 50 ml 2460 ml 120 ml Balance 50 ml 2460 ml 120 ml Exam HEENT exam is; supple neck, positive JVD. No lymphadenopathy. Midline trachea. No thyromegaly. Pharynx is clear. Patient is edentulous and wears dentures. Pupils are small bilaterally. Chest exam is; diminished but clear vessel. S1-S2 audible, no murmurs. Regular rhythm. Abdomen examination; soft, nontender. No organomegaly. Bowel sounds are audible. Extremity exam; no peripheral edema. Pulses 1+ bilaterally. 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 Has stable left hemiplegia. Results Result Diagram: 10/26/16 0653 10/26/16 0653 Results 24 hrs Laboratory Tests Test 10/25/16 15:30 10/25/16 17:00 10/25/16 21:25 10/26/16 06:30 Lactic Acid Level 1.3 0.7 Creatine Kinase 71 72 Creatine Kinase Index 0.8 1.6 Creatinine Kinase MB (Mass) 0.54 1.13 Troponin I 0.012 < 0.012 B-Type Natriuretic Peptide 5960 H Free Thyroxine 1.56 Sodium Level 138 Potassium Level 4.3 Chloride Level 107 Carbon Dioxide Level 22 Anion Gap 13 Blood Urea Nitrogen 35 H Creatinine 1.48 H Glucose Level 132 Calcium Level 7.5 L Total Bilirubin 0.4 Direct Bilirubin 0.00 Indirect Bilirubin 0.4 Aspartate Amino Transf (AST/SGOT) 58 H Alanine Aminotransferase (ALT/SGPT) 37 Alkaline Phosphatase 167 H Total Protein 6.8 Albumin 3.2 L Globulin 3.60 H Albumin/Globulin Ratio 0.88 Urine Color LT. YELLOW Urine Clarity CLEAR Urine pH 5.5 Urine Specific [place] 1.020 Urine Ketones NEGATIVE Urine Nitrite NEGATIVE Urine Bilirubin NEGATIVE Urine Urobilinogen 0.2 E.U./dL Urine Leukocyte Esterase NEGATIVE Urine Microscopic RBC 0-2 Urine Microscopic WBC 0-2 Urine Epithelial Cells OCCASIONAL Urine Uric Acid Crystals MODERATE Urine Hemoglobin TRACE Urine Random Creatinine 60.26 Urine Random Sodium 59 Urine Protein/Creatinine Ratio 0.92 Urine Glucose NEGATIVE Urine Total Protein 56.0 H Test 10/26/16 06:53 10/26/16 10:24 White Blood Count 14.4 H Red Blood Count 3.08 L Hemoglobin 9.1 L Hematocrit 29.9 L Mean Corpuscular Volume 97.1 Mean Corpuscular Hemoglobin 29.5 Mean Corpuscular Hemoglobin Concent 30.4 L Red Cell Distribution Width 12.6 Platelet Count 361 Mean Platelet Volume 10.4 Neutrophils % 83.1 H Lymphocytes % 8.2 L Monocytes % 7.8 Eosinophils % 0.2 Basophils % 0.1 Nucleated Red Blood Cells % 0.0 Neutrophils # 11.9 H Lymphocytes # 1.2 Monocytes # 1.1 H Eosinophils # 0.0 Basophils # 0.0 Nucleated Red Blood Cells # 0.0 Sodium Level 139 Potassium Level 3.9 Chloride Level 109 Carbon Dioxide Level 21 Anion Gap 13 Blood Urea Nitrogen 32 H Creatinine 1.39 H Glucose Level 89 # Hemoglobin A1c 6.0 H Calcium Level 8.1 L Phosphorus Level 4.1 Magnesium Level 2.5 Triglycerides Level 94 Cholesterol Level 77 L LDL Cholesterol, Calculated 28 HDL Cholesterol 30 L Cholesterol/HDL Ratio 2.5 Thyroid Stimulating Hormone (TSH) 4.580 Blood Gas Specimen Source Blood arterial Arterial Blood Date Drawn 10/26/2016 11:20:56 AM Arterial Blood pH (Temp corrected) 7.389 Arterial Blood pCO2 (Temp correct) 38.2 Arterial Blood pO2 (Temp corrected) 88.9 Arterial Blood HCO3 22.6 Arterial Blood Base Excess -2.1 Arterial Blood Oxygen Saturation 96.4 Andrés Test ACCEPTAB Arterial Blood Gas Puncture Site Right Radial Arterial Blood Carboxyhemoglobin 0.2 Arterial Blood Methemoglobin 0.3 Blood Gas A-a O2 Differential 585.9 H Oxyhemoglobin Percent 95.9 Total Hemoglobin 10.4 L Blood Gas Temperature 37.0 Blood Gas Modality MASK - NRB FiO2 100.0 Blood Gas Notified Whom YOELD Blood Gas Notified Time 10/26/2016 12:04:41 PM Medications Medications Current Medications Ondansetron HCl (Zofran Inj) 4 mg Q6H PRN IV NAUSEA AND/OR VOMITING; Start at 15:00 Acetaminophen (Tylenol Tab) 650 mg Q6H PRN PO PAIN LEVEL 1-3 OR FEVER Last administered on 10/26/16 11:51; Admin Dose 650 MG; Start 10/25/16 at 15:00 Acetaminophen/ Hydrocodone Bitart ([place] (5/325)) 1 tab Q6H PRN PO MODERATE PAIN LEVEL 4-6; Start 10/25/16 at 15:00 Morphine Sulfate (morphine) 2 mg Q4H PRN IV SEVERE PAIN LEVEL 7-10; Start 10/25 at 15:00 Docusate Sodium (Colace) 100 mg Q12H PRN PO CONSTIPATION; Start 10/25/16 at 15: 00 Magnesium Hydroxide (Milk Of Mag) 30 ml DAILY PRN PO CONSTIPATION; Start at 15:00 Sodium Biphosphate/ Sodium Phosphate (Fleet Enema) 133 ml DAILY PRN [place] CONSTIPATION; Start 10/25/16 at 15:00 Heparin Sodium (Porcine) (Heparin (5000 Units/0.5 ml)) 5,000 unit Q12 SC Last administered on 10/26/16 09:25; Admin Dose 5,000 UNIT; Start 10/25/16 at 21:00 Lorazepam (Ativan) 0.5 mg Q6H PRN IV ANXIETY; Start 10/25/16 at 15:00 Vancomycin HCl (Vanco Iv Per Pharmacy) VANCOMYCIN PER PHARMACY NOTE XX ; Start 10/25/16 at 15:00 Hydralazine HCl (Apresoline) 10 mg Q6H PRN IV ELEVATED BLOOD PRESSURE; Start at 15:00 Nitroglycerin (Nitroglycerin (Sl Tab) 0.4 Mg) 1 tab Q5M PRN SL ANGINA; Start at 15:00 Aspirin (Halfprin) 81 mg DAILY PO Last administered on 10/26/16 09:14; Admin Dose 81 MG; Start 10/26/16 at 09:00 Atorvastatin Calcium (Lipitor) 80 mg HS PO Last administered on 10/25/16 22:17 ; Admin Dose 80 MG; Start 10/25/16 at 21:00 Clopidogrel Bisulfate (plaVIX) 75 mg DAILY PO Last administered on 10/26/16 09 :14; Admin Dose 75 MG; Start 10/26/16 at 09:00 Mirtazapine (Remeron) 7.5 mg HS PO Last administered on 10/25/16 22:18; Admin Dose 7.5 MG; Start 10/25/16 at 21:00 Montelukast Sodium (Singulair) 10 mg QHS PO Last administered on 10/25/16 22: 17; Admin Dose 10 MG; Start 10/25/16 at 21:00 Furosemide 40 mg 40 mg DAILY IV Last administered on 10/26/16 09:14; Admin Dose 40 MG; Start 10/25/16 at 15:30 Piperacillin Sod/ Tazobactam Sod 100 ml @ 200 mls/hr Q8 IVPB Last administered on 10/26/16 14:15; Admin Dose 200 MLS/HR; Start 10/25/16 at 22:00 Vancomycin HCl/ Sodium Chloride (Vancocin/NS) 150 ml @ 75 mls/hr Q24H IVPB Last administered on 10/26/16 11:44; Admin Dose 75 MLS/HR; Start 10/26/16 at 12 :00 KAYODE FINNEGAN Oct 26, 2016 14:59
[2016-10-26] MEDS: AZITHROMYCIN 250 MG TAB PO SCH (15:50)
--- NOTE | 2016-10-26 18:11 | CONS ---
DATE OF ADMISSION: 10/25/2016 DATE OF CONSULTATION: 10/26/2016 REASON FOR CONSULTATION: Shortness of breath, assess for congestive heart failure. History of ____ and stent placement. Assess for acute coronary syndrome as well as bradycardia. REQUESTING PHYSICIAN: Dr. Rojo from the hospitalist service. HISTORY OF PRESENT ILLNESS: Ms. Bartlett is a very pleasant 71-year-old female with a history of coron flex artery disease, status post prior PTCA and stent placement, the most recently in 2013, hypertens ion, dyslipidemia, ST elevation myocardial infarction in 2013, CVA with left-sided upper and lower e xtremity weakness, cardiac arrhythmia on amiodarone, dyslipidemia who presented with 4 to 5 days of cough, shortness of breath, subjective fevers. Upon arrival, temperature of 99.3, blood pressure 15 4/70, pulse 61, respiratory rate 28, and 80% on room air. Patient's labs were notable for white cou nt 14.7, hemoglobin 10.0, platelet count of 371, a sodium 136, potassium 4.3, creatinine 1.62, BUN 3 7. AST 62, ALT 42. Troponin negative. BNP 5960, LDL 28, HDL 30. UA negative. ABG revealing a pH of 7.389, a PaO2 of 88, pCO2 of 38. The patient underwent a chest x-ray revealing mild cardiomegal y, congestive heart failure, pulmonary edema. The patient's electrocardiogram revealed a rhythm con cerning for possible accelerated junctional rhythm versus a sinus rhythm with somewhat difficult to discern P waves, normal axis, normal intervals, anteroseptal Q's and nonspecific ST-T abnormalities. The patient was subsequently admitted to the floor and since admit to the floor, the patient has h ad bradycardia to the 40s with borderline blood pressures as low as 96 and most recently improved to 147. The patient has ongoing cough, shortness of breath. PAST MEDICAL HISTORY: As above in HPI. MEDICATIONS CURRENTLY IN HOSPITAL: 1. Zithromax. 2. Aspirin 81 mg daily. 3. Plavix 75 mg daily. 4. Protonix 40 mg daily. 5. Zosyn. 6. Heparin 5000 subq q.12h. 7. Lipitor 80 mg at bedtime. 8. Remeron 7.5 mg at bedtime. 9. Singulair 10 mg at bedtime. 10. Ambien p.r.n. 11. Lasix 40 mg IV daily. 12. Zofran p.r.n. 13. Tylenol p.r.n. 14. Colace p.r.n. 15. Milk of magnesia p.r.n. 16. Hydralazine p.r.n. 17. DuoNebs p.r.n. 18. Ativan p.r.n. ALLERGIES: NO KNOWN DRUG ALLERGIES. SOCIAL HISTORY: No tobacco, ETOH or illicit drug use. FAMILY HISTORY: Negative for sudden cardiac or early CAD. REVIEW OF SYSTEMS: As above in HPI. CONSTITUTIONAL: No fevers, chills. PULMONARY: Shortness of breath. CARDIOVASCULAR: Congestive heart failure. GASTROINTESTINAL: No vomiting. GENITOURINARY: No hematuria. MUSCULOSKELETAL: Degenerative joint disease. PSYCHIATRIC: No documented psych history. NEUROLOGIC: History of cerebrovascular accident with left-sided weakness. PHYSICAL EXAMINATION: VITAL SIGNS: Temperature 97.2, blood pressure most recently 147/65, pulse 66, respiratory rate 20, satting 98% on 15 liters. GENERAL: The patient is alert, awake, ongoing cough, shortness of breath. Facemask in place. NECK: JVP approximately 9 cm water. CHEST: Upper airway sounds are rhonchorous sounds. HEART: Bradycardic, regular rate and rhythm, normal S1, increased S2, I/ systolic murmur, nondisp laced PMI. ABDOMEN: Positive bowel sounds, soft. EXTREMITIES: No pitting edema, 1+ pulses bilaterally, posterior tibial. LABORATORY DATA: As above in HPI with most recently from today, sodium 139, potassium ____.9, creat inine 1.39, BUN 32. Troponin negative x3 since admit. White cell count 4.4, hemoglobin 9.1, plate let count 361. IMAGING STUDIES: As above in HPI. No further imaging studies for my review at this time. ECG: As above in HPI. No further electrocardiograms for my review at this time. IMPRESSION: 1. Congestive heart failure would be diastolic by most recent echo December 2015, which revealed an EF of 60% to 65%. 2. Abnormal electrocardiogram, assess for acute coronary syndrome with negative troponins x3. 3. History of percutaneous transluminal coronary angioplasty and stent placement, most recently 201 4 at the time of STEMI. 4. History of ST elevation myocardial infarction. 5. Upper respiratory infection/pneumonia. 6. Renal failure, slowly improving. 7. Anemia. 8. Leukocytosis. RECOMMENDATIONS: 1. At this time would maintain patient on telemetry monitoring to follow rhythm and rate closely. 2. Would continue the patient's dual antiplatelet therapy with aspirin and Plavix for stent patency and prevention of further cardiovascular events. 3. Would continue the patient's daily Lasix at this time, following strict I's and O's and creatini ne to grade diuresis closely and continue the patient's antibiotics and follow up all culture data. 4. We will follow the patient's 2D echo done for assessment of ejection fraction, wall motion and a ny major valve abnormalities. 5. Check a fasting lipid panel for general risk stratification and adjust the patient's statin ther apy as necessary. 6. Continue the patient's bronchodilator therapy and oxygen support. Thank you for allowing me to take part in the care of this patient. I will continue to follow along very closely with you. Further recommendations will be made as the patient progresses through her inpatient hospital clinical course. Dictated By: DANIS SARMIENTO/OMERO Conf#: [id number] DID#: [id number] CC: ROSS ROJO;*[place]*
--- NOTE | 2016-10-26 21:16 | RADRPT ---
Echocardiogram Report Patient Name: DANILO BETTS Gender: Female Date: 1945 Study Date: 25-Oct-2016 Copy Chief: MELY [facility] Location: [facility] Ref. Physician: ROSS ROJO Quality: Adequate Procedures: Transthoracic echocardiogram with complete 2D, M-Mode, and doppler examination. Indications: Chest Pain, CAD, PCI, CHF. 2D/M Mode Doppler Measurement Value Normal Ranges Measurement Value Normal Ranges LVIDd 2D 5.2 3.5 - 5.6 cm AV Peak [place] 1.5 m/sec LVIDs 2D 3.2 2.1 - 4.1 cm AV Peak PG 9.4 mmHg LVPWd 2D 1.0 0.6 - 1.1 cm LVOT Peak [place] 1.1 m/sec IVSd 2D 0.9 0.6 - 1.1 cm LVOT Peak PG 4.7 mmHg AoR Diam 2D 2.2 2.0 - 3.7 cm MV E Peak [place] 1.6 m/sec EDV 2D 131.3 cm3 MV A Peak [place] 0.4 m/sec ESV 2D 32.3 cm3 MV E/A 4.0 MV Peak [place] 4.6 m/sec MV Peak PG 84.3 mmHg MV Mean [place] 3.6 m/sec MV Mean PG 57.3 mmHg MV Decel Time 237 msec MV Decel [place] 7 MV E/A 4.0 MV VTI 176.6 cm TR Peak [place] 2.7 m/sec TR Peak PG 29.7 mmHg Findings Left Ventricle: Normal left ventricular systolic function. Normal left ventricular cavity size. Normal left ventricular wall thickness. Ejection fraction is visually estimated at 60 %. Abnormal Diastolic Function. Right Ventricle: Normal right ventricular size. Normal right ventricular systolic function. Left Atrium: There is mild enlargement of left atrium. Right Atrium: Right atrium at upper limits of normal. RA Pressure=15. Mitral Valve: Mild mitral leaflet calcification. Mild mitral annular calcification. Moderate mitral valve regurgitation. Aortic Valve: Aortic cusps appear mildly calcified. Trace aortic valve regurgitation. Tricuspid Valve: Normal appearance of the tricuspid valve. Estimated peak PA systolic pressure 51 mmHg. There is mild to moderate tricuspid regurgitation. Pulmonic Valve: There is trace pulmonic regurgitation. Pericardium: Normal pericardium with no significant pericardial effusion. Aorta: Normal aortic root. IVC: Dilated inferior vena cava with poor inspiratory collapse consistent with elevated right atrial pressures. Conclusions 1.Normal left ventricular systolic function. Normal left ventricular cavity size. Normal left ventricular wall thickness. Ejection fraction is visually estimated at 60 %. Abnormal Diastolic Function. 2.There is mild enlargement of left atrium. 3.Mild mitral leaflet calcification. Mild mitral annular calcification. Moderate mitral valve regurgitation. 4.Aortic cusps appear mildly calcified. Trace aortic valve regurgitation. 5.Normal appearance of the tricuspid valve. Estimated peak PA systolic pressure 51 mmHg. There is mild to moderate tricuspid regurgitation. Electronically Signed By: Yunier Cosme 26-Oct-2016 21:15:09 -0700 Patient Name: DANILO BETTS Study Date: 25-Oct-2016 [id number]
[2016-10-26] MEDS: ATORVASTATIN 80 MG TAB PO SCH (22:06)
[2016-10-26] MEDS: MONTELUKAST 10 MG TAB PO SCH (22:07)
[2016-10-26] MEDS: MIRTAZAPINE 15 MG TAB PO SCH (22:07)
--- NOTE | 2016-10-26 22:56 | CONS ---
Date/Time of Note Date/Time of Note DATE: 10/26/16 TIME: 22:54 Assessment/Plan Assessment/Plan Chief Complaint/Hosp Course IMPRESSION: 1. The patient has acute congestive heart failure. 2. Acute kidney injury due to congestive heart failure, possible systolic heart failure. 3. The patient has leukocytosis. 4. Hypocalcemia. 5. Elevated BNP. 6. History of paroxysmal atrial fibrillation. 7. History of left carotid endarterectomy. 8. History of congestive heart failure. plan continue lasix Problems: Consultation Date/Type/Reason Admit Date/Time Oct 25, 2016 at 14:22 Initial Consult Date 10/26/16 Type of Consultation: renal 24 HR Interval Summary Subjective hx not possible: other (still sob+) Exam/Review of Systems Vital Signs Vitals Vital Signs Date Time Temp Pulse Resp B/P Pulse Ox O2 Delivery O2 Flow Rate FiO2 10/26/16 21:54 100 6.0 10/26/16 20:38 52 10/26/16 20:18 Non Rebreather 10/26/16 20:11 60 10/26/16 19:26 98.2 20 107/54 Intake and Output 10/25/16 10/25/16 10/26/16 15:00 23:00 07:00 Intake Total 50 ml 2460 ml 120 ml Balance 50 ml 2460 ml 120 ml Exam Neck: supple Respiratory: congested cough, diminished breath sounds Cardiovascular: regular rate and rhythm Gastrointestinal: bowel sounds (+), soft Extremities: No edema Results Result Diagram: 10/26/16 0653 10/26/16 0653 Results 24 hrs Laboratory Tests Test 10/26/16 06:30 10/26/16 06:53 10/26/16 10:24 Urine Color LT. YELLOW Urine Clarity CLEAR Urine pH 5.5 Urine Specific [place] 1.020 Urine Ketones NEGATIVE Urine Nitrite NEGATIVE Urine Bilirubin NEGATIVE Urine Urobilinogen 0.2 E.U./dL Urine Leukocyte Esterase NEGATIVE Urine Microscopic RBC 0-2 Urine Microscopic WBC 0-2 Urine Epithelial Cells OCCASIONAL Urine Uric Acid Crystals MODERATE Urine Hemoglobin TRACE Urine Random Creatinine 60.26 Urine Random Sodium 59 Urine Protein/Creatinine Ratio 0.92 Urine Glucose NEGATIVE Urine Total Protein 56.0 H White Blood Count 14.4 H Red Blood Count 3.08 L Hemoglobin 9.1 L Hematocrit 29.9 L Mean Corpuscular Volume 97.1 Mean Corpuscular Hemoglobin 29.5 Mean Corpuscular Hemoglobin Concent 30.4 L Red Cell Distribution Width 12.6 Platelet Count 361 Mean Platelet Volume 10.4 Neutrophils % 83.1 H Lymphocytes % 8.2 L Monocytes % 7.8 Eosinophils % 0.2 Basophils % 0.1 Nucleated Red Blood Cells % 0.0 Neutrophils # 11.9 H Lymphocytes # 1.2 Monocytes # 1.1 H Eosinophils # 0.0 Basophils # 0.0 Nucleated Red Blood Cells # 0.0 Sodium Level 139 Potassium Level 3.9 Chloride Level 109 Carbon Dioxide Level 21 Anion Gap 13 Blood Urea Nitrogen 32 H Creatinine 1.39 H Glucose Level 89 # Hemoglobin A1c 6.0 H Calcium Level 8.1 L Phosphorus Level 4.1 Magnesium Level 2.5 Triglycerides Level 94 Cholesterol Level 77 L LDL Cholesterol, Calculated 28 HDL Cholesterol 30 L Cholesterol/HDL Ratio 2.5 Thyroid Stimulating Hormone (TSH) 4.580 Blood Gas Specimen Source Blood arterial Arterial Blood Date Drawn 10/26/2016 11:20:56 AM Arterial Blood pH (Temp corrected) 7.389 Arterial Blood pCO2 (Temp correct) 38.2 Arterial Blood pO2 (Temp corrected) 88.9 Arterial Blood HCO3 22.6 Arterial Blood Base Excess -2.1 Arterial Blood Oxygen Saturation 96.4 Andrés Test ACCEPTAB Arterial Blood Gas Puncture Site Right Radial Arterial Blood Carboxyhemoglobin 0.2 Arterial Blood Methemoglobin 0.3 Blood Gas A-a O2 Differential 585.9 H Oxyhemoglobin Percent 95.9 Total Hemoglobin 10.4 L Blood Gas Temperature 37.0 Blood Gas Modality MASK - NRB FiO2 100.0 Blood Gas Notified Whom JLD Blood Gas Notified Time 10/26/2016 12:04:41 PM Medications Medications Current Medications Ondansetron HCl (Zofran Inj) 4 mg Q6H PRN IV NAUSEA AND/OR VOMITING; Start at 15:00 Acetaminophen (Tylenol Tab) 650 mg Q6H PRN PO PAIN LEVEL 1-3 OR FEVER Last administered on 10/26/16t 17:52; Admin Dose 650 MG; Start 10/25/16 at 15:00 Acetaminophen/ Hydrocodone Bitart ([place] (5/325)) 1 tab Q6H PRN PO MODERATE PAIN LEVEL 4-6; Start 10/25/16 at 15:00 Morphine Sulfate (morphine) 2 mg Q4H PRN IV SEVERE PAIN LEVEL 7-10; Start 10/25 at 15:00 Docusate Sodium (Colace) 100 mg Q12H PRN PO CONSTIPATION; Start 10/25/16 at 15: 00 Magnesium Hydroxide (Milk Of Mag) 30 ml DAILY PRN PO CONSTIPATION; Start at 15:00 Sodium Biphosphate/ Sodium Phosphate (Fleet Enema) 133 ml DAILY PRN [place] CONSTIPATION; Start 10/25/16 at 15:00 Heparin Sodium (Porcine) (Heparin (5000 Units/0.5 ml)) 5,000 unit Q12 SC Last administered on 10/26/16 09:25; Admin Dose 5,000 UNIT; Start 10/25/16 at 21:00 Lorazepam (Ativan) 0.5 mg Q6H PRN IV ANXIETY; Start 10/25/16 at 15:00 Hydralazine HCl (Apresoline) 10 mg Q6H PRN IV ELEVATED BLOOD PRESSURE; Start at 15:00 Nitroglycerin (Nitroglycerin (Sl Tab) 0.4 Mg) 1 tab Q5M PRN SL ANGINA; Start at 15:00 Aspirin (Halfprin) 81 mg DAILY PO Last administered on 10/26/16 09:14; Admin Dose 81 MG; Start 10/26/16 at 09:00 Atorvastatin Calcium (Lipitor) 80 mg HS PO Last administered on 10/25/16 22:17 ; Admin Dose 80 MG; Start 10/25/16 at 21:00 Clopidogrel Bisulfate (plaVIX) 75 mg DAILY PO Last administered on 10/26/16 09 :14; Admin Dose 75 MG; Start 10/26/16 at 09:00 Mirtazapine (Remeron) 7.5 mg HS PO Last administered on 10/25/16 22:18; Admin Dose 7.5 MG; Start 10/25/16 at 21:00 Montelukast Sodium (Singulair) 10 mg QHS PO Last administered on 10/25/16 22: 17; Admin Dose 10 MG; Start 10/25/16 at 21:00 Furosemide 40 mg 40 mg DAILY IV Last administered on 10/26/16 09:14; Admin Dose 40 MG; Start 10/25/16 at 15:30 Piperacillin Sod/ Tazobactam Sod (Zosyn 3.375gm/ 100 ml (Pmx)) 100 ml @ 200 mls /hr Q8 IVPB Last administered on 10/26/16 14:15; Admin Dose 200 MLS/HR; Start 10/25/16 at 22:00 Azithromycin (Zithromax) 500 mg DAILY PO Last administered on 10/26/16 15:50; Admin Dose 500 MG; Start 10/26/16 at 15:00 GHADA VALENCIA MD Oct 26, 2016 22:56
[2016-10-27] VITALS (11 sets, daily range): BP systolic 99–149; BP diastolic 44–65; PULSE 63–74; RESP 15–20
[2016-10-27] MEDS: ZOLPIDEM 5 MG TAB PO PRN ×2 (01:19→20:55)
[2016-10-27] MEDS: ALBUTEROL/IPRATROPIUM (NEB) 3 ML AMP HHN PRN ×3 (02:35→22:45)
[2016-10-27] MEDS: PIPER-TAZO 3.375 GM IV (PMX) 100 ML IVPB SCH ×3 (06:33→20:46)
[2016-10-27] MEDS: PANTOPRAZOLE (EC) 40 MG TAB PO SCH (06:33)
--- NOTE | 2016-10-27 07:47 | RADRPT ---
PROCEDURE: Retroperitoneal US. CLINICAL INDICATION: Renal insufficiency TECHNIQUE: Multiple sonographic images of the kidneys and retroperitoneum were obtained. The imag es were reviewed on a PACS workstation. COMPARISON: No prior studies are available for comparison. FINDINGS: The kidneys are normal in size, contour, cortical thickness and cortical echogenicity. The right kidney measures 9.5 cm. The left kidney measures 9.4 cm. No kidney stones are visualized. There is no evidence for hydronephrosis. The urinary bladder is normal. The aorta and IVC were not visualized. RPTAT: AA IMPRESSION: Unremarkable retroperitoneal ultrasound. .Vladislav Carlos MD, MD Date Time Electronically viewed and signed by .Vladislav Carlos MD, on 10/27/2016 07:47 .S/
[2016-10-27 08:03] LABS: CHOL/HDL RATIO 2.6 RATIO
[2016-10-27 08:10] LABS: CK-MB 0.91 ng/ml (0.0-2.4)
[2016-10-27 08:13] LABS: TROPONIN-I 0.015 ng/ml (0.00-0.12)
[2016-10-27 09:09] LABS: ADD SCAN DIFF NO
[2016-10-27 09:11] LABS: BASOPHILS % 0.2 % (0.0-2.0); EOSINOPHILS % 0.3 % (0.0-7.0); HEMATOCRIT 30.6 % (37.0-47.0); HEMOGLOBIN 9.8 g/dl (12.0-16.0); LYMPHOCYTES # 1.5 10^3/ul (0.8-2.9); LYMPHOCYTES % 10.4 % (15.0-51.0); MEAN CORPUSCULAR HEMOGLOBIN 30.2 pg (29.0-33.0); MEAN CORPUSCULAR VOLUME 94.2 fl (82.0-101.0); MONOCYTE # 1.2 10^3/ul (0.3-0.9); MONOCYTES % 8.1 % (0.0-11.0); NEUTROPHIL # 11.7 10^3/ul (1.6-7.5); NEUTROPHILS % 80.4 % (39.0-77.0); PLATELET COUNT 487 10^3/UL (140-415); RED BLOOD COUNT 3.25 10^6/ul (4.20-5.40); RED CELL DISTRIBUTION WIDTH 12.3 % (11.5-14.5); WHITE BLOOD COUNT 14.5 10^3/ul (4.8-10.8)
[2016-10-27] MEDS: AZITHROMYCIN 250 MG TAB PO SCH (09:14)
[2016-10-27] MEDS: CLOPIDOGREL 75 MG TAB PO SCH (09:14)
[2016-10-27] MEDS: ASPIRIN (EC) 81 MG TAB PO SCH (09:14)
[2016-10-27] MEDS: FUROSEMIDE 40 MG INJ IV SCH (09:15)
[2016-10-27 09:17] LABS: POTASSIUM 3.4 mmol/L (3.5-5.1)
[2016-10-27 09:19] LABS: CREATININE 1.12 mg/dl (0.44-1.00)
[2016-10-27 09:20] LABS: CALCIUM 7.6 mg/dl (8.4-10.2)
[2016-10-27] MEDS: HEPARIN 5,000 UNIT/0.5 ML VIAL SC SCH ×2 (09:26→20:53)
--- NOTE | 2016-10-27 11:30 | CONS ---
Date/Time of Note Date/Time of Note DATE: 10/27/16 TIME: 11:26 Assessment/Plan Assessment/Plan Additional Assessment/Plan Assessment and recommendations; 1. Patient admitted for CHF exacerbation. 2. Possibly superimposed bilateral perihilar bronchopneumonia. 3. Chronic renal insufficiency. 4. History of CVA. 5. History of cardiac arrhythmia. Continue current treatment. Will obtain follow-up chest x-ray. Consultation Date/Type/Reason Admit Date/Time Oct 25, 2016 at 14:22 Initial Consult Date 10/26/16 Type of Consultation: Pulmonary 24 HR Interval Summary Free Text/Dictation Patient condition is stable. Still requiring supplemental oxygen for O2 saturation maintenance. Denies any cough, wheezing. Any sputum production. General exam; elderly lady, awake alert currently in no distress. Exam/Review of Systems Vital Signs Vitals Vital Signs Date Time Temp Pulse Resp B/P Pulse Ox O2 Delivery O2 Flow Rate FiO2 10/27/16 09:42 Simple Mask 10.0 10/27/16 08:19 62 20 92 10/27/16 07:50 99.0 137/59 10/27/16 02:35 40 Intake and Output 10/26/16 10/26/16 10/27/16 14:59 22:59 06:59 Intake Total 850 ml 400 ml Output Total 1100 ml Balance -250 ml 400 ml Exam HEENT exam is; supple neck, positive JVD. No lymphadenopathy. Midline trachea. No thyromegaly. Pharynx is clear. Pupils are small bilaterally. Chest examination; diminished but clear vessel. S1-S2 audible, no murmurs. Regular rhythm. Abdomen examination; soft, nondistended, nontender. No organomegaly. Bowel sounds audible. Extremity examination; no peripheral edema. BLADE ALIGNER examination; patient has stable left hemiplegia. Results Result Diagram: 10/27/1671910/27/1620 Results 24 hrs Laboratory Tests Test 10/27/16 07:20 White Blood Count 14.5 H Red Blood Count 3.25 L Hemoglobin 9.8 L Hematocrit 30.6 L Mean Corpuscular Volume 94.2 Mean Corpuscular Hemoglobin 30.2 Mean Corpuscular Hemoglobin Concent 32.0 Red Cell Distribution Width 12.3 Platelet Count 487 #H Mean Platelet Volume 10.0 Neutrophils % 80.4 H Lymphocytes % 10.4 L Monocytes % 8.1 Eosinophils % 0.3 Basophils % 0.2 Nucleated Red Blood Cells % 0.0 Neutrophils # 11.7 H Lymphocytes # 1.5 Monocytes # 1.2 H Eosinophils # 0.0 Basophils # 0.0 Nucleated Red Blood Cells # 0.0 Sodium Level 141 Potassium Level 3.4 L Chloride Level 102 Carbon Dioxide Level 25 Anion Gap 17 H Blood Urea Nitrogen 20 # Creatinine 1.12 H Glucose Level 73 Calcium Level 7.6 L Creatine Kinase 58 Creatine Kinase Index 1.6 Creatinine Kinase MB (Mass) 0.91 Troponin I 0.015 B-Type Natriuretic Peptide 3450 H Triglycerides Level 92 Cholesterol Level 75 L LDL Cholesterol, Calculated 29 HDL Cholesterol 28 L Cholesterol/HDL Ratio 2.6 Medications Medications Current Medications Ondansetron HCl (Zofran Inj) 4 mg Q6H PRN IV NAUSEA AND/OR VOMITING; Start at 15:00 Acetaminophen (Tylenol Tab) 650 mg Q6H PRN PO PAIN LEVEL 1-3 OR FEVER Last administered on 10/26/16 17:52; Admin Dose 650 MG; Start 10/25/16 at 15:00 Acetaminophen/ Hydrocodone Bitart ([place] (5/325)) 1 tab Q6H PRN PO MODERATE PAIN LEVEL 4-6; Start 10/25/16 at 15:00 Morphine Sulfate (morphine) 2 mg Q4H PRN IV SEVERE PAIN LEVEL 7-10; Start 10/25 at 15:00 Docusate Sodium (Colace) 100 mg Q12H PRN PO CONSTIPATION; Start 10/25/16 at 15: 00 Magnesium Hydroxide (Milk Of Mag) 30 ml DAILY PRN PO CONSTIPATION; Start at 15:00 Sodium Biphosphate/ Sodium Phosphate (Fleet Enema) 133 ml DAILY PRN [place] CONSTIPATION; Start 10/25/16 at 15:00 Heparin Sodium (Porcine) (Heparin (5000 Units/0.5 ml)) 5,000 unit Q12 SC Last administered on 10/27/16 09:26; Admin Dose 5,000 UNIT; Start 10/25/16 at 21:00 Lorazepam (Ativan) 0.5 mg Q6H PRN IV ANXIETY; Start 10/25/16 at 15:00 Hydralazine HCl (Apresoline) 10 mg Q6H PRN IV ELEVATED BLOOD PRESSURE; Start at 15:00 Nitroglycerin (Nitroglycerin (Sl Tab) 0.4 Mg) 1 tab Q5M PRN SL ANGINA; Start at 15:00 Aspirin (Halfprin) 81 mg DAILY PO Last administered on 10/27/16 09:14; Admin Dose 81 MG; Start 10/26/16 at 09:00 Atorvastatin Calcium (Lipitor) 80 mg HS PO Last administered on 10/26/16 22:06 ; Admin Dose 80 MG; Start 10/25/16 at 21:00 Clopidogrel Bisulfate (plaVIX) 75 mg DAILY PO Last administered on 10/27/16 09 :14; Admin Dose 75 MG; Start 10/26/16 at 09:00 Mirtazapine (Remeron) 7.5 mg HS PO Last administered on 10/26/16 22:07; Admin Dose 7.5 MG; Start 10/25/16 at 21:00 Montelukast Sodium (Singulair) 10 mg QHS PO Last administered on 10/26/16 22: 07; Admin Dose 10 MG; Start 10/25/16 at 21:00 Furosemide 40 mg 40 mg DAILY IV Last administered on 10/27/16 09:15; Admin Dose 40 MG; Start 10/25/16 at 15:30 Piperacillin Sod/ Tazobactam Sod (Zosyn 3.375gm/ 100 ml (Pmx)) 100 ml @ 200 mls /hr Q8 IVPB Last administered on 10/27/16 06:33; Admin Dose 200 MLS/HR; Start 10/25/16 at 22:00 Azithromycin (Zithromax) 500 mg DAILY PO Last administered on 10/27/16 09:14; Admin Dose 500 MG; Start 10/26/16 at 15:00 KAYODE FINNEGAN Oct 27, 2016 11:29
--- NOTE | 2016-10-27 11:50 | PN ---
Date/Time of Note Date/Time of Note DATE: 10/27/16 TIME: 11:47 Assessment/Plan VTE Prophylaxis VTE Prophylaxis Intervention: heparin Lines/Catheters IV [facility] [facility] Urinary Cath still in place: No Assessment/Plan Chief Complaint/Hosp Course ASSESSMENT AND PLAN: 71-year-old female coming in with shortness of breath and cough with signs of pneumonia and congestive heart failure exacerbation and renal insufficiency. 1. Shortness of breath. Again secondary to looks like a combination of pneumonia and congestive heart failure, slowly improving. - f/u pulm and cardiology consult rec's - Holding her home blood pressure medicines for now given acute exacerbation - continue IV Lasix, although again she has got renal insufficiency, we have to be cautious about that. - Keep the head of the bed elevated greater than 30 degrees. Morphine p.r.n., oxygen supplementation as well. Nitroglycerin p.r.n. -f/u PT and OT consults as well 2. Renal insufficiency - appreciate renal consult as well - improving now - continue hold off on fluids for now since she has got signs of congestive heart failure exacerbation. - monitor Bun/Cr levels, I/O's 3. History of coronary artery disease status post stent placement x3 in the past. - Again, we are holding her home blood pressure medicines - continue aspirin and Plavix, cardiology consult, again f/u echo. 4. History of stroke in the past. Again, continue aspirin and Plavix. Monitor for now and get PT consult 5. Essential hypertension. Blood pressure is presently stable. Continue to monitor for now. 6. High cholesterol - f/u lipid panel. 7. Gastrointestinal prophylaxis, proton pump inhibitor. 8. Deep venous thrombosis prophylaxis, heparin subcutaneously. Problems: Subjective 24 Hr Interval Summary Free Text/Dictation Pt seen by physician practice consultant teams, no acute events overnight. Still NPO per ST rec's. Exam/Review of Systems Vital Signs Vitals Vital Signs Date Time Temp Pulse Resp B/P Pulse Ox O2 Delivery O2 Flow Rate FiO2 10/27/16 11:29 98.6 64 20 130/61 98 10/27/16 09:42 Simple Mask 10.0 10/27/16 02:35 40 Intake and Output 10/26/16 10/26/16 10/27/16 15:00 23:00 07:00 Intake Total 850 ml 400 ml Output Total 1100 ml Balance -250 ml 400 ml Exam GENERAL: The patient is sitting up in bed on nonrebreather. Daughter is at the bedside. HEENT: Pupils equal, round, react to light. Extraocular muscles intact. NECK: Supple, no thyromegaly. LUNGS: Rhonchus breath sounds bilaterally, no wheezes. CARDIOVASCULAR: S1, S2 heard. No rubs or gallops. ABDOMEN: Soft, nontender, nondistended. Normal bowel sounds. No rebound or guarding. MUSCULOSKELETAL: She has got 1+ pitting edema bilateral lower extremities to the mid calves. NEUROLOGIC: No focal deficits. Results Result Diagram: 10/27/16 0710/27/16 0720 Results 24 hrs Laboratory Tests Test 10/27/16 07:20 White Blood Count 14.5 H Red Blood Count 3.25 L Hemoglobin 9.8 L Hematocrit 30.6 L Mean Corpuscular Volume 94.2 Mean Corpuscular Hemoglobin 30.2 Mean Corpuscular Hemoglobin Concent 32.0 Red Cell Distribution Width 12.3 Platelet Count 487 #H Mean Platelet Volume 10.0 Neutrophils % 80.4 H Lymphocytes % 10.4 L Monocytes % 8.1 Eosinophils % 0.3 Basophils % 0.2 Nucleated Red Blood Cells % 0.0 Neutrophils # 11.7 H Lymphocytes # 1.5 Monocytes # 1.2 H Eosinophils # 0.0 Basophils # 0.0 Nucleated Red Blood Cells # 0.0 Sodium Level 141 Potassium Level 3.4 L Chloride Level 102 Carbon Dioxide Level 25 Anion Gap 17 H Blood Urea Nitrogen 20 # Creatinine 1.12 H Glucose Level 73 Calcium Level 7.6 L Creatine Kinase 58 Creatine Kinase Index 1.6 Creatinine Kinase MB (Mass) 0.91 Troponin I 0.015 B-Type Natriuretic Peptide 3450 H Triglycerides Level 92 Cholesterol Level 75 L LDL Cholesterol, Calculated 29 HDL Cholesterol 28 L Cholesterol/HDL Ratio 2.6 Medications Medications Current Medications Ondansetron HCl (Zofran Inj) 4 mg Q6H PRN IV NAUSEA AND/OR VOMITING; Start at 15:00 Acetaminophen (Tylenol Tab) 650 mg Q6H PRN PO PAIN LEVEL 1-3 OR FEVER Last administered on 10/26/16t 17:52; Admin Dose 650 MG; Start 10/25/16 at 15:00 Acetaminophen/ Hydrocodone Bitart ([place] (5/325)) 1 tab Q6H PRN PO MODERATE PAIN LEVEL 4-6; Start 10/25/16 at 15:00 Morphine Sulfate (morphine) 2 mg Q4H PRN IV SEVERE PAIN LEVEL 7-10; Start 10/25 at 15:00 Docusate Sodium (Colace) 100 mg Q12H PRN PO CONSTIPATION; Start 10/25/16 at 15: 00 Magnesium Hydroxide (Milk Of Mag) 30 ml DAILY PRN PO CONSTIPATION; Start at 15:00 Sodium Biphosphate/ Sodium Phosphate (Fleet Enema) 133 ml DAILY PRN [place] CONSTIPATION; Start 10/25/16 at 15:00 Heparin Sodium (Porcine) (Heparin (5000 Units/0.5 ml)) 5,000 unit Q12 SC Last administered on 10/27/16 09:26; Admin Dose 5,000 UNIT; Start 10/25/16 at 21:00 Lorazepam (Ativan) 0.5 mg Q6H PRN IV ANXIETY; Start 10/25/16 at 15:00 Hydralazine HCl (Apresoline) 10 mg Q6H PRN IV ELEVATED BLOOD PRESSURE; Start at 15:00 Nitroglycerin (Nitroglycerin (Sl Tab) 0.4 Mg) 1 tab Q5M PRN SL ANGINA; Start at 15:00 Aspirin (Halfprin) 81 mg DAILY PO Last administered on 10/27/16 09:14; Admin Dose 81 MG; Start 10/26/16 at 09:00 Atorvastatin Calcium (Lipitor) 80 mg HS PO Last administered on 10/26/16 22:06 ; Admin Dose 80 MG; Start 10/25/16 at 21:00 Clopidogrel Bisulfate (plaVIX) 75 mg DAILY PO Last administered on 10/27/16 09 :14; Admin Dose 75 MG; Start 10/26/16 at 09:00 Mirtazapine (Remeron) 7.5 mg HS PO Last administered on 10/26/16 22:07; Admin Dose 7.5 MG; Start 10/25/16 at 21:00 Montelukast Sodium (Singulair) 10 mg QHS PO Last administered on 10/26/16 22: 07; Admin Dose 10 MG; Start 10/25/16 at 21:00 Furosemide 40 mg 40 mg DAILY IV Last administered on 10/27/16 09:15; Admin Dose 40 MG; Start 10/25/16 at 15:30 Piperacillin Sod/ Tazobactam Sod (Zosyn 3.375gm/ 100 ml (Pmx)) 100 ml @ 200 mls /hr Q8 IVPB Last administered on 10/27/16 06:33; Admin Dose 200 MLS/HR; Start 10/25/16 at 22:00 Azithromycin (Zithromax) 500 mg DAILY PO Last administered on 10/27/16 09:14; Admin Dose 500 MG; Start 10/26/16 at 15:00 Procedures Procedures 2D ECHO (10/26/2016): Conclusions 1. Normal left ventricular systolic function. Normal left ventricular cavity size. Normal left ventricular wall thickness. Ejection fraction is visually estimated at 60 %. Abnormal Diastolic Function. 2. There is mild enlargement of left atrium. 3. Mild mitral leaflet calcification. Mild mitral annular calcification. Moderate mitral valve regurgitation. 4. Aortic cusps appear mildly calcified. Trace aortic valve regurgitation. 5. Normal appearance of the tricuspid valve. Estimated peak PA systolic pressure 51 mmHg. There is mild to moderate tricuspid regurgitation. ROSS ROJO Oct 27, 2016 11:50
[2016-10-27] MEDS: morphine 2 MG INJ IV PRN (14:32)
--- NOTE | 2016-10-27 17:26 | RADRPT ---
Vent Rate: 72 bpm RR Interval: 0 msec IN Interval: 198 msec QRS Duration: 86 msec QT Interval: 530 msec QTC Interval: 580 msec P-R-T [place]: 44 - 34 - -28 degrees Normal sinus rhythm Possible Anterior infarct , age undetermined T wave abnormality, consider inferior ischemia Prolonged QT Abnormal ECG Electronically Signed By: Juan Carlos Paula [id number]
--- NOTE | 2016-10-27 19:00 | CONS ---
Date/Time of Note Date/Time of Note DATE: 10/27/16 TIME: 18:50 Assessment/Plan Assessment/Plan Chief Complaint/Hosp Course IMPRESSION: 1. Congestive heart failure would be diastolic by most recent echo December 2015, which revealed an EF of 60% to 65%. EF this admit EF 60/NL EF 2. Abnormal electrocardiogram, assess for acute coronary syndrome with negative troponins x3. 3. History of percutaneous transluminal coronary angioplasty and stent placement, most recently 2013 at the time of STEMI. 4. History of ST elevation myocardial infarction. 5. Upper respiratory infection/pneumonia. 6. Renal failure, slowly improving. 7. Anemia. 8. Leukocytosis. 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 -check cxr -Continue abx's/bronchodilators -Cosnider steroids Problems: Consultation Date/Type/Reason Admit Date/Time Oct 25, 2016 at 14:22 Initial Consult Date 10/26/16 Type of Consultation: Cardiology Reason for Consultation CHF Referring Provider: ALISON RYDER MD Exam/Review of Systems Vital Signs Vitals Vital Signs Date Time Temp Pulse Resp B/P Pulse Ox O2 Delivery O2 Flow Rate FiO2 10/27/16 16:36 63 10/27/16 15:25 98.0 20 149/65 96 10/27/16 09:42 Simple Mask 10.0 10/27/16 02:35 40 Intake and Output 10/26/16 10/26/16 10/27/16 15:00 23:00 07:00 Intake Total 850 ml 400 ml Output Total 1100 ml Balance -250 ml 400 ml Exam Review of Systems: CONSTITUTIONAL: No fevers, chills. PULMONARY: Hypoxia CARDIOVASCULAR: No chest pain/palpitations GASTROINTESTINAL: No nausea/vomiting. GENITOURINARY: No hematuria/dysuria. MUSCULOSKELETAL: No myagias/arthalgias. PSYCHIATRIC: The patient denies depression. NEUROLOGIC: No weakness Constitutional: alert Psych: no complaints Head: normocephalic ENMT: mucosa pink and moist, other (face mask in place) Neck: jvd (9cm water), supple Respiratory: diminished breath sounds (at bases/B) Cardiovascular: regular rate and rhythm Gastrointestinal: non-tender, soft Musculoskeletal: muscle tone (normal) Extremities: edema (none) Neurological: other (No focal deficits) Results Result Diagram: 10/27/16 0720 10/27/16 0720 Results 24 hrs Laboratory Tests Test 10/27/16 07:20 White Blood Count 14.5 H Red Blood Count 3.25 L Hemoglobin 9.8 L Hematocrit 30.6 L Mean Corpuscular Volume 94.2 Mean Corpuscular Hemoglobin 30.2 Mean Corpuscular Hemoglobin Concent 32.0 Red Cell Distribution Width 12.3 Platelet Count 487 #H Mean Platelet Volume 10.0 Neutrophils % 80.4 H Lymphocytes % 10.4 L Monocytes % 8.1 Eosinophils % 0.3 Basophils % 0.2 Nucleated Red Blood Cells % 0.0 Neutrophils # 11.7 H Lymphocytes # 1.5 Monocytes # 1.2 H Eosinophils # 0.0 Basophils # 0.0 Nucleated Red Blood Cells # 0.0 Sodium Level 141 Potassium Level 3.4 L Chloride Level 102 Carbon Dioxide Level 25 Anion Gap 17 H Blood Urea Nitrogen 20 # Creatinine 1.12 H Glucose Level 73 Calcium Level 7.6 L Creatine Kinase 58 Creatine Kinase Index 1.6 Creatinine Kinase MB (Mass) 0.91 Troponin I 0.015 B-Type Natriuretic Peptide 3450 H Triglycerides Level 92 Cholesterol Level 75 L LDL Cholesterol, Calculated 29 HDL Cholesterol 28 L Cholesterol/HDL Ratio 2.6 Medications Medications Current Medications Ondansetron HCl (Zofran Inj) 4 mg Q6H PRN IV NAUSEA AND/OR VOMITING; Start at 15:00 Acetaminophen (Tylenol Tab) 650 mg Q6H PRN PO PAIN LEVEL 1-3 OR FEVER Last administered on 10/26/16 17:52; Admin Dose 650 MG; Start 10/25/16 at 15:00 Acetaminophen/ Hydrocodone Bitart ([place] (5/325)) 1 tab Q6H PRN PO MODERATE PAIN LEVEL 4-6; Start 10/25/16 at 15:00 Morphine Sulfate (morphine) 2 mg Q4H PRN IV SEVERE PAIN LEVEL 7-10 Last administered on 10/27/16 14:32; Admin Dose 2 MG; Start 10/25/16 at 15:00 Docusate Sodium (Colace) 100 mg Q12H PRN PO CONSTIPATION; Start 10/25/16 at 15: 00 Magnesium Hydroxide (Milk Of Mag) 30 ml DAILY PRN PO CONSTIPATION; Start at 15:00 Sodium Biphosphate/ Sodium Phosphate (Fleet Enema) 133 ml DAILY PRN [place] CONSTIPATION; Start 10/25/16 at 15:00 Heparin Sodium (Porcine) (Heparin (5000 Units/0.5 ml)) 5,000 unit Q12 SC Last administered on 10/27/16 09:26; Admin Dose 5,000 UNIT; Start 10/25/16 at 21:00 Lorazepam (Ativan) 0.5 mg Q6H PRN IV ANXIETY; Start 10/25/16 at 15:00 Hydralazine HCl (Apresoline) 10 mg Q6H PRN IV ELEVATED BLOOD PRESSURE; Start at 15:00 Nitroglycerin (Nitroglycerin (Sl Tab) 0.4 Mg) 1 tab Q5M PRN SL ANGINA; Start at 15:00 Aspirin (Halfprin) 81 mg DAILY PO Last administered on 10/27/16 09:14; Admin Dose 81 MG; Start 10/26/16 at 09:00 Atorvastatin Calcium (Lipitor) 80 mg HS PO Last administered on 10/26/16 22:06 ; Admin Dose 80 MG; Start 10/25/16 at 21:00 Clopidogrel Bisulfate (plaVIX) 75 mg DAILY PO Last administered on 10/27/16 09 :14; Admin Dose 75 MG; Start 10/26/16 at 09:00 Mirtazapine (Remeron) 7.5 mg HS PO Last administered on 10/26/16 22:07; Admin Dose 7.5 MG; Start 10/25/16 at 21:00 Montelukast Sodium (Singulair) 10 mg QHS PO Last administered on 10/26/16 22: 07; Admin Dose 10 MG; Start 10/25/16 at 21:00 Furosemide 40 mg 40 mg DAILY IV Last administered on 10/27/16 09:15; Admin Dose 40 MG; Start 10/25/16 at 15:30 Piperacillin Sod/ Tazobactam Sod (Zosyn 3.375gm/ 100 ml (Pmx)) 100 ml @ 200 mls /hr Q8 IVPB Last administered on 10/27/16 13:55; Admin Dose 200 MLS/HR; Start 10/25/16 at 22:00 Azithromycin (Zithromax) 500 mg DAILY PO Last administered on 10/27/16 09:14; Admin Dose 500 MG; Start 10/26/16 at 15:00 DANIS CORTES Oct 27, 2016 19:00
--- NOTE | 2016-10-27 19:02 | CONS ---
Date/Time of Note Date/Time of Note DATE: 10/27/16 TIME: 19:01 Assessment/Plan Assessment/Plan Chief Complaint/Hosp Course IMPRESSION: 1. The patient has acute congestive heart failure. 2. Acute kidney injury due to congestive heart failure, possible systolic heart failure. 3. The patient has hypokalemia 4. Hypocalcemia. 5. Elevated BNP. 6. History of paroxysmal atrial fibrillation. 7. History of left carotid endarterectomy. 8. History of congestive heart failure. plan continue lasix kcl Problems: Consultation Date/Type/Reason Admit Date/Time Oct 25, 2016 at 14:22 Initial Consult Date 10/26/16 Type of Consultation: renal Referring Provider: ALISON RYDER MD 24 HR Interval Summary Constitutional: no complaints Exam/Review of Systems Vital Signs Vitals Vital Signs Date Time Temp Pulse Resp B/P Pulse Ox O2 Delivery O2 Flow Rate FiO2 10/27/16 16:36 63 10/27/16 15:25 98.0 20 149/65 96 10/27/16 09:42 Simple Mask 10.0 10/27/16 02:35 40 Intake and Output 10/26/16 10/26/16 10/27/16 15:00 23:00 07:00 Intake Total 850 ml 400 ml Output Total 1100 ml Balance -250 ml 400 ml Exam Respiratory: congested cough, diminished breath sounds Cardiovascular: regular rate and rhythm Gastrointestinal: soft Extremities: edema (+) Results Result Diagram: 10/27/16 0720 10/27/16 0720 Results 24 hrs Laboratory Tests Test 10/27/16 07:20 White Blood Count 14.5 H Red Blood Count 3.25 L Hemoglobin 9.8 L Hematocrit 30.6 L Mean Corpuscular Volume 94.2 Mean Corpuscular Hemoglobin 30.2 Mean Corpuscular Hemoglobin Concent 32.0 Red Cell Distribution Width 12.3 Platelet Count 487 #H Mean Platelet Volume 10.0 Neutrophils % 80.4 H Lymphocytes % 10.4 L Monocytes % 8.1 Eosinophils % 0.3 Basophils % 0.2 Nucleated Red Blood Cells % 0.0 Neutrophils # 11.7 H Lymphocytes # 1.5 Monocytes # 1.2 H Eosinophils # 0.0 Basophils # 0.0 Nucleated Red Blood Cells # 0.0 Sodium Level 141 Potassium Level 3.4 L Chloride Level 102 Carbon Dioxide Level 25 Anion Gap 17 H Blood Urea Nitrogen 20 # Creatinine 1.12 H Glucose Level 73 Calcium Level 7.6 L Creatine Kinase 58 Creatine Kinase Index 1.6 Creatinine Kinase MB (Mass) 0.91 Troponin I 0.015 B-Type Natriuretic Peptide 3450 H Triglycerides Level 92 Cholesterol Level 75 L LDL Cholesterol, Calculated 29 HDL Cholesterol 28 L Cholesterol/HDL Ratio 2.6 Medications Medications Current Medications Ondansetron HCl (Zofran Inj) 4 mg Q6H PRN IV NAUSEA AND/OR VOMITING; Start at 15:00 Acetaminophen (Tylenol Tab) 650 mg Q6H PRN PO PAIN LEVEL 1-3 OR FEVER Last administered on 10/26/16 17:52; Admin Dose 650 MG; Start 10/25/16 at 15:00 Acetaminophen/ Hydrocodone Bitart ([place] (5/325)) 1 tab Q6H PRN PO MODERATE PAIN LEVEL 4-6; Start 10/25/16 at 15:00 Morphine Sulfate (morphine) 2 mg Q4H PRN IV SEVERE PAIN LEVEL 7-10 Last administered on 10/27/16 14:32; Admin Dose 2 MG; Start 10/25/16 at 15:00 Docusate Sodium (Colace) 100 mg Q12H PRN PO CONSTIPATION; Start 10/25/16 at 15: 00 Magnesium Hydroxide (Milk Of Mag) 30 ml DAILY PRN PO CONSTIPATION; Start at 15:00 Sodium Biphosphate/ Sodium Phosphate (Fleet Enema) 133 ml DAILY PRN [place] CONSTIPATION; Start 10/25/16 at 15:00 Heparin Sodium (Porcine) (Heparin (5000 Units/0.5 ml)) 5,000 unit Q12 SC Last administered on 10/27/16 09:26; Admin Dose 5,000 UNIT; Start 10/25/16 at 21:00 Lorazepam (Ativan) 0.5 mg Q6H PRN IV ANXIETY; Start 10/25/16 at 15:00 Hydralazine HCl (Apresoline) 10 mg Q6H PRN IV ELEVATED BLOOD PRESSURE; Start at 15:00 Nitroglycerin (Nitroglycerin (Sl Tab) 0.4 Mg) 1 tab Q5M PRN SL ANGINA; Start at 15:00 Aspirin (Halfprin) 81 mg DAILY PO Last administered on 10/27/16 09:14; Admin Dose 81 MG; Start 10/26/16 at 09:00 Atorvastatin Calcium (Lipitor) 80 mg HS PO Last administered on 10/26/16 22:06 ; Admin Dose 80 MG; Start 10/25/16 at 21:00 Clopidogrel Bisulfate (plaVIX) 75 mg DAILY PO Last administered on 10/27/16 09 :14; Admin Dose 75 MG; Start 10/26/16 at 09:00 Mirtazapine (Remeron) 7.5 mg HS PO Last administered on 10/26/16 22:07; Admin Dose 7.5 MG; Start 10/25/16 at 21:00 Montelukast Sodium (Singulair) 10 mg QHS PO Last administered on 10/26/16 22: 07; Admin Dose 10 MG; Start 10/25/16 at 21:00 Furosemide 40 mg 40 mg DAILY IV Last administered on 10/27/16 09:15; Admin Dose 40 MG; Start 10/25/16 at 15:30 Piperacillin Sod/ Tazobactam Sod (Zosyn 3.375gm/ 100 ml (Pmx)) 100 ml @ 200 mls /hr Q8 IVPB Last administered on 10/27/16 13:55; Admin Dose 200 MLS/HR; Start 10/25/16 at 22:00 Azithromycin (Zithromax) 500 mg DAILY PO Last administered on 10/27/16 09:14; Admin Dose 500 MG; Start 10/26/16 at 15:00 GHADA VALENCIA MD Oct 27, 2016 19:02
[2016-10-27] MEDS: MONTELUKAST 10 MG TAB PO SCH (20:46)
[2016-10-27] MEDS: ATORVASTATIN 80 MG TAB PO SCH (20:46)
[2016-10-27] MEDS: MIRTAZAPINE 15 MG TAB PO SCH (20:46)
[2016-10-28] VITALS (12 sets, daily range): BP systolic 121–148; BP diastolic 47–68; PULSE 63–78; RESP 18–20
[2016-10-28] MEDS: PANTOPRAZOLE (EC) 40 MG TAB PO SCH (05:46)
[2016-10-28] MEDS: PIPER-TAZO 3.375 GM IV (PMX) 100 ML IVPB SCH ×3 (05:46→20:40)
[2016-10-28 08:36] LABS: ADD SCAN DIFF NO
[2016-10-28 08:43] LABS: BASOPHILS % 0.2 % (0.0-2.0); EOSINOPHILS # 0.1 10^3/ul (0.0-0.5); EOSINOPHILS % 0.8 % (0.0-7.0); HEMATOCRIT 32.2 % (37.0-47.0); HEMOGLOBIN 10.1 g/dl (12.0-16.0); LYMPHOCYTES % 15.8 % (15.0-51.0); MEAN CORPUSCULAR HEMOGLOBIN 29.2 pg (29.0-33.0); MEAN CORPUSCULAR HGB CONC 31.4 g/dl (32.0-37.0); MEAN CORPUSCULAR VOLUME 93.1 fl (82.0-101.0); MEAN PLATELET VOLUME 9.4 fl (7.4-10.4); MONOCYTE # 1.3 10^3/ul (0.3-0.9); MONOCYTES % 10.6 % (0.0-11.0); NEUTROPHIL # 8.9 10^3/ul (1.6-7.5); NEUTROPHILS % 72.2 % (39.0-77.0); PLATELET COUNT 514 10^3/UL (140-415); RED BLOOD COUNT 3.46 10^6/ul (4.20-5.40); RED CELL DISTRIBUTION WIDTH 12.4 % (11.5-14.5); WHITE BLOOD COUNT 12.3 10^3/ul (4.8-10.8)
[2016-10-28] MEDS: FUROSEMIDE 40 MG INJ IV SCH ×2 (08:45→20:38)
[2016-10-28 09:00] LABS: CREATININE 1.01 mg/dl (0.44-1.00)
[2016-10-28 09:01] LABS: CALCIUM 8.2 mg/dl (8.4-10.2)
[2016-10-28 09:03] LABS: POTASSIUM 2.9 mmol/L (3.5-5.1)
[2016-10-28] MEDS: CLOPIDOGREL 75 MG TAB PO SCH (09:29)
[2016-10-28] MEDS: POTASSIUM CHLORIDE (SR) 20 MEQ TAB PO SCH (09:30)
[2016-10-28] MEDS: AZITHROMYCIN 250 MG TAB PO SCH (09:30)
[2016-10-28] MEDS: ASPIRIN (EC) 81 MG TAB PO SCH (09:30)
[2016-10-28] MEDS: HEPARIN 5,000 UNIT/0.5 ML VIAL SC SCH ×2 (09:38→20:39)
--- NOTE | 2016-10-28 10:39 | PN ---
Date/Time of Note Date/Time of Note DATE: 10/28/16 TIME: 10:38 Assessment/Plan VTE Prophylaxis VTE Prophylaxis Intervention: heparin Lines/Catheters IV [facility] Urinary Cath still in place: No Assessment/Plan Chief Complaint/Hosp Course ASSESSMENT AND PLAN: 71-year-old female coming in with shortness of breath and cough with signs of pneumonia and congestive heart failure exacerbation and renal insufficiency. 1. Shortness of breath. Again secondary to looks like a combination of pneumonia and congestive heart failure, slowly improving. - f/u pulm and cardiology consult rec's - Holding her home blood pressure medicines for now given acute exacerbation - continue IV Lasix - Keep the head of the bed elevated greater than 30 degrees. Morphine p.r.n., oxygen supplementation as well. Nitroglycerin p.r.n. -f/u PT and OT consults as well 2. Renal insufficiency - appreciate renal consult as well - improving now - continue hold off on fluids for now since she has got signs of congestive heart failure exacerbation. - monitor Bun/Cr levels, I/O's 3. History of coronary artery disease status post stent placement x3 in the past. - Again, we are holding her home blood pressure medicines - continue aspirin and Plavix, cardiology consult, again f/u echo. 4. History of stroke in the past. Again, continue aspirin and Plavix. Monitor for now and get PT consult 5. Essential hypertension. Blood pressure is presently stable. Continue to monitor for now. 6. High cholesterol - f/u lipid panel. 7. Gastrointestinal prophylaxis, proton pump inhibitor. 8. Deep venous thrombosis prophylaxis, heparin subcutaneously. Problems: Subjective 24 Hr Interval Summary Free Text/Dictation Pt has less SOB today. Seen by pulm, renal, and CV teams. Exam/Review of Systems Vital Signs Vitals Vital Signs Date Time Temp Pulse Resp B/P Pulse Ox O2 Delivery O2 Flow Rate FiO2 10/28/16 08:32 63 10/28/16 07:53 Nasal Cannula 6.0 10/28/16 07:27 99.5 18 147/63 96 10/28/16 02:23 45 Intake and Output 10/27/16 10/27/16 10/28/16 14:59 22:59 06:59 Intake Total 100 ml 500 ml 680 ml Balance 100 ml 500 ml 680 ml Exam GENERAL: The patient is sitting up in bed on nonrebreather. Daughter is at the bedside. HEENT: Pupils equal, round, react to light. Extraocular muscles intact. NECK: Supple, no thyromegaly. LUNGS: Rhonchus breath sounds bilaterally, no wheezes. CARDIOVASCULAR: S1, S2 heard. No rubs or gallops. ABDOMEN: Soft, nontender, nondistended. Normal bowel sounds. No rebound or guarding. MUSCULOSKELETAL: She has got 1+ pitting edema bilateral lower extremities to the mid calves. NEUROLOGIC: No focal deficits. Results Result Diagram: 10/28/16 0755 10/28/16 0755 Results 24 hrs Laboratory Tests Test 10/28/16 07:55 White Blood Count 12.3 H Red Blood Count 3.46 L Hemoglobin 10.1 L Hematocrit 32.2 L Mean Corpuscular Volume 93.1 Mean Corpuscular Hemoglobin 29.2 Mean Corpuscular Hemoglobin Concent 31.4 L Red Cell Distribution Width 12.4 Platelet Count 514 H Mean Platelet Volume 9.4 Neutrophils % 72.2 Lymphocytes % 15.8 Monocytes % 10.6 Eosinophils % 0.8 Basophils % 0.2 Nucleated Red Blood Cells % 0.0 Neutrophils # 8.9 H Lymphocytes # 2.0 Monocytes # 1.3 H Eosinophils # 0.1 Basophils # 0.0 Nucleated Red Blood Cells # 0.0 Sodium Level 141 Potassium Level 2.9 *L Chloride Level 97 Carbon Dioxide Level 34 H Anion Gap 13 Blood Urea Nitrogen 12 Creatinine 1.01 H Glucose Level 127 # Calcium Level 8.2 L Medications Medications Current Medications Ondansetron HCl (Zofran Inj) 4 mg Q6H PRN IV NAUSEA AND/OR VOMITING; Start at 15:00 Acetaminophen (Tylenol Tab) 650 mg Q6H PRN PO PAIN LEVEL 1-3 OR FEVER Last administered on 10/26/16 17:52; Admin Dose 650 MG; Start 10/25/16 at 15:00 Acetaminophen/ Hydrocodone Bitart ([place] (5/325)) 1 tab Q6H PRN PO MODERATE PAIN LEVEL 4-6; Start 10/25/16 at 15:00 Morphine Sulfate (morphine) 2 mg Q4H PRN IV SEVERE PAIN LEVEL 7-10 Last administered on 10/27/16 14:32; Admin Dose 2 MG; Start 10/25/16 at 15:00 Docusate Sodium (Colace) 100 mg Q12H PRN PO CONSTIPATION; Start 10/25/16 at 15: 00 Magnesium Hydroxide (Milk Of Mag) 30 ml DAILY PRN PO CONSTIPATION; Start at 15:00 Sodium Biphosphate/ Sodium Phosphate (Fleet Enema) 133 ml DAILY PRN [place] CONSTIPATION; Start 10/25/16 at 15:00 Heparin Sodium (Porcine) (Heparin (5000 Units/0.5 ml)) 5,000 unit Q12 SC Last administered on 10/28/16 09:38; Admin Dose 5,000 UNIT; Start 10/25/16 at 21:00 Lorazepam (Ativan) 0.5 mg Q6H PRN IV ANXIETY; Start 10/25/16 at 15:00 Hydralazine HCl (Apresoline) 10 mg Q6H PRN IV ELEVATED BLOOD PRESSURE; Start at 15:00 Nitroglycerin (Nitroglycerin (Sl Tab) 0.4 Mg) 1 tab Q5M PRN SL ANGINA; Start at 15:00 Aspirin (Halfprin) 81 mg DAILY PO Last administered on 10/28/16 09:30; Admin Dose 81 MG; Start 10/26/16 at 09:00 Atorvastatin Calcium (Lipitor) 80 mg HS PO Last administered on 10/27/16 20:46 ; Admin Dose 80 MG; Start 10/25/16 at 21:00 Clopidogrel Bisulfate (plaVIX) 75 mg DAILY PO Last administered on 10/28/16 09 :29; Admin Dose 75 MG; Start 10/26/16 at 09:00 Mirtazapine (Remeron) 7.5 mg HS PO Last administered on 10/27/16 20:46; Admin Dose 7.5 MG; Start 10/25/16 at 21:00 Montelukast Sodium (Singulair) 10 mg QHS PO Last administered on 10/27/16 20: 46; Admin Dose 10 MG; Start 10/25/16 at 21:00 Furosemide 40 mg 40 mg DAILY IV Last administered on 10/28/16 08:45; Admin Dose 40 MG; Start 10/25/16 at 15:30 Piperacillin Sod/ Tazobactam Sod (Zosyn 3.375gm/ 100 ml (Pmx)) 100 ml @ 200 mls /hr Q8 IVPB Last administered on 10/28/16 05:46; Admin Dose 200 MLS/HR; Start 10/25/16 at 22:00 Azithromycin (Zithromax) 500 mg DAILY PO Last administered on 10/28/16 09:30; Admin Dose 500 MG; Start 10/26/16 at 15:00 Potassium Chloride (Klor-Con 20) 20 meq DAILY PO Last administered on 09:30; Admin Dose 20 MEQ; Start 10/28/16 at 09:00 Procedures Procedures 2D ECHO: Conclusions 1. Normal left ventricular systolic function. Normal left ventricular cavity size. Normal left ventricular wall thickness. Ejection fraction is visually estimated at 60 %. Abnormal Diastolic Function. 2. There is mild enlargement of left atrium. 3. Mild mitral leaflet calcification. Mild mitral annular calcification. Moderate mitral valve regurgitation. 4. Aortic cusps appear mildly calcified. Trace aortic valve regurgitation. 5. Normal appearance of the tricuspid valve. Estimated peak PA systolic pressure 51 mmHg. There is mild to moderate tricuspid regurgitation. ROSS ROJO Oct 28, 2016 10:39
--- NOTE | 2016-10-28 10:42 | RADRPT ---
PROCEDURE: XR Chest. CLINICAL INDICATION: Heart failure TECHNIQUE: Single frontal view of the chest was obtained. COMPARISON: 10/25/2016 FINDINGS: The cardiomediastinal silhouette is mildly enlarged. Pulmonary vasculature is mildly prominent. Th ere is moderate aortic calcification. There is a small left pleural effusion. There is hazy densit y through the left mid and lower lung. There is no pneumothorax. The osseous structures and soft tissues are unremarkable. IMPRESSION: 1. Mild cardiomegaly. Moderate aortic calcification. 2. Pulmonary vascular congestion. 3. Small left pleural effusion. Edema and atelectasis through the left lung. The appearance is im proved. RPTAT: DD .Giancarlo Cruz MD, Date Time Electronically viewed and signed by .Giancarlo Cruz MD, MD on 10/28/2016 10:42 .T/
--- NOTE | 2016-10-28 10:45 | CONS ---
Date/Time of Note Date/Time of Note DATE: 10/28/16 TIME: 10:43 Assessment/Plan Assessment/Plan Additional Assessment/Plan Assessment recommendations; 1. Patient admitted for bilateral perihilar bronchopneumonia as well as pulmonary edema with significant clinical improvement. 2. Renal insufficiency with marked improvement in serum creatinine. 3. History of left hemiplegia. 4. History of cardiac arrhythmia. Continue current treatment. Chest x-ray is pending from today. Further recommendations to be made once chest x-ray is done. Consultation Date/Type/Reason Admit Date/Time Oct 25, 2016 at 14:22 Initial Consult Date 10/26/16 Type of Consultation: Pulmonary Referring Provider: ALISON YRDER MD 24 HR Interval Summary Free Text/Dictation Patient condition stable. Remains awake alert. Denies any shortness breath, chest pain, cough. General exam; elderly lady, awake alert currently in no distress. Exam/Review of Systems Vital Signs Vitals Vital Signs Date Time Temp Pulse Resp B/P Pulse Ox O2 Delivery O2 Flow Rate FiO2 10/28/16 08:32 63 10/28/16 07:53 Nasal Cannula 6.0 10/28/16 07:27 99.5 18 147/63 96 10/28/16 02:23 45 Intake and Output 10/27/16 10/27/16 10/28/16 15:00 23:00 07:00 Intake Total 100 ml 500 ml 680 ml Balance 100 ml 500 ml 680 ml Exam HEENT exam is; supple neck, no JVD. No lymphadenopathy. Midline trachea. No thyromegaly. Pupils are midsize reactive to light. No neck masses. No thyromegaly. Chest examined; clear to auscultation bilaterally. S1-S2 audible, no murmurs. Regular rhythm. Abdomen examination; soft, nontender, no organomegaly. Bowel sounds audible. Extremity examination; no peripheral edema. Pulses 1+ bilaterally. [employer] examination; patient has stable left hemiplegia. Results Result Diagram: 10/28/16 0755 10/28/16 0755 Results 24 hrs Laboratory Tests Test 10/28/16 07:55 White Blood Count 12.3 H Red Blood Count 3.46 L Hemoglobin 10.1 L Hematocrit 32.2 L Mean Corpuscular Volume 93.1 Mean Corpuscular Hemoglobin 29.2 Mean Corpuscular Hemoglobin Concent 31.4 L Red Cell Distribution Width 12.4 Platelet Count 514 H Mean Platelet Volume 9.4 Neutrophils % 72.2 Lymphocytes % 15.8 Monocytes % 10.6 Eosinophils % 0.8 Basophils % 0.2 Nucleated Red Blood Cells % 0.0 Neutrophils # 8.9 H Lymphocytes # 2.0 Monocytes # 1.3 H Eosinophils # 0.1 Basophils # 0.0 Nucleated Red Blood Cells # 0.0 Sodium Level 141 Potassium Level 2.9 *L Chloride Level 97 Carbon Dioxide Level 34 H Anion Gap 13 Blood Urea Nitrogen 12 Creatinine 1.01 H Glucose Level 127 # Calcium Level 8.2 L Medications Medications Current Medications Ondansetron HCl (Zofran Inj) 4 mg Q6H PRN IV NAUSEA AND/OR VOMITING; Start at 15:00 Acetaminophen (Tylenol Tab) 650 mg Q6H PRN PO PAIN LEVEL 1-3 OR FEVER Last administered on 10/26/16 17:52; Admin Dose 650 MG; Start 10/25/16 at 15:00 Acetaminophen/ Hydrocodone Bitart ([place] (5/325)) 1 tab Q6H PRN PO MODERATE PAIN LEVEL 4-6; Start 10/25/16 at 15:00 Morphine Sulfate (morphine) 2 mg Q4H PRN IV SEVERE PAIN LEVEL 7-10 Last administered on 10/27/16 14:32; Admin Dose 2 MG; Start 10/25/16 at 15:00 Docusate Sodium (Colace) 100 mg Q12H PRN PO CONSTIPATION; Start 10/25/16 at 15: 00 Magnesium Hydroxide (Milk Of Mag) 30 ml DAILY PRN PO CONSTIPATION; Start at 15:00 Sodium Biphosphate/ Sodium Phosphate (Fleet Enema) 133 ml DAILY PRN [place] CONSTIPATION; Start 10/25/16 at 15:00 Heparin Sodium (Porcine) (Heparin (5000 Units/0.5 ml)) 5,000 unit Q12 SC Last administered on 10/28/16 09:38; Admin Dose 5,000 UNIT; Start 10/25/16 at 21:00 Lorazepam (Ativan) 0.5 mg Q6H PRN IV ANXIETY; Start 10/25/16 at 15:00 Hydralazine HCl (Apresoline) 10 mg Q6H PRN IV ELEVATED BLOOD PRESSURE; Start at 15:00 Nitroglycerin (Nitroglycerin (Sl Tab) 0.4 Mg) 1 tab Q5M PRN SL ANGINA; Start at 15:00 Aspirin (Halfprin) 81 mg DAILY PO Last administered on 10/28/16 09:30; Admin Dose 81 MG; Start 10/26/16 at 09:00 Atorvastatin Calcium (Lipitor) 80 mg HS PO Last administered on 10/27/16 20:46 ; Admin Dose 80 MG; Start 10/25/16 at 21:00 Clopidogrel Bisulfate (plaVIX) 75 mg DAILY PO Last administered on 10/28/16 09 :29; Admin Dose 75 MG; Start 10/26/16 at 09:00 Mirtazapine (Remeron) 7.5 mg HS PO Last administered on 10/27/16 20:46; Admin Dose 7.5 MG; Start 10/25/16 at 21:00 Montelukast Sodium (Singulair) 10 mg QHS PO Last administered on 10/27/16 20: 46; Admin Dose 10 MG; Start 10/25/16 at 21:00 Furosemide 40 mg 40 mg DAILY IV Last administered on 10/28/16 08:45; Admin Dose 40 MG; Start 10/25/16 at 15:30 Piperacillin Sod/ Tazobactam Sod (Zosyn 3.375gm/ 100 ml (Pmx)) 100 ml @ 200 mls /hr Q8 IVPB Last administered on 10/28/16 05:46; Admin Dose 200 MLS/HR; Start 10/25/16 at 22:00 Azithromycin (Zithromax) 500 mg DAILY PO Last administered on 10/28/16 09:30; Admin Dose 500 MG; Start 10/26/16 at 15:00 Potassium Chloride 20 meq 20 meq DAILY PO Last administered on 10/28/16 09:30 ; Admin Dose 20 MEQ; Start 10/28/16 at 09:00 Potassium Chloride (KCl 40 MEQ/250 ML NS) 250 ml @ 62.5 mls/hr Q4H IVPB ; Start 10/28/16 at 11:00; Stop 10/28/16 at 18:59 KAYODE FINNEGAN Oct 28, 2016 10:45
[2016-10-28] MEDS: POTASSIUM CHLORIDE 250 ML IVPB SCH ×2 (11:58→19:27)
--- NOTE | 2016-10-28 13:21 | CONS ---
Date/Time of Note Date/Time of Note DATE: 10/28/16 TIME: 13:19 Assessment/Plan Assessment/Plan Chief Complaint/Hosp Course 1. Acute kidney injury due to congestive heart failure, possible systolic heart failure. 2. Hypocalcemia. 3. Elevated BNP. 4. History of paroxysmal atrial fibrillation. 5. History of left carotid endarterectomy. 6. History of congestive heart failure. Problems: Additional Assessment/Plan per primary MD Consultation Date/Type/Reason Admit Date/Time Oct 25, 2016 at 14:22 Initial Consult Date 10/26/16 Type of Consultation: Nephrology Reason for Consultation dr Alberto Referring Provider: ALISON RYDER MD Exam/Review of Systems Vital Signs Vitals Vital Signs Date Time Temp Pulse Resp B/P Pulse Ox O2 Delivery O2 Flow Rate FiO2 10/28/16 12:12 64 10/28/16 11:56 99.8 18 121/47 98 10/28/16 07:53 Nasal Cannula 6.0 10/28/16 02:23 45 Intake and Output 10/27/16 10/27/16 10/28/16 15:00 23:00 07:00 Intake Total 100 ml 500 ml 680 ml Balance 100 ml 500 ml 680 ml Exam Constitutional: alert, oriented Psych: no complaints Head: normocephalic Eyes: nl conjunctiva ENMT: nl external ears & nose Neck: supple Respiratory: clear to auscultation Cardiovascular: regular rate and rhythm Gastrointestinal: soft Genitourinary - Female: nl external genitalia Musculoskeletal: nl extremities to inspection Extremities: normal pulses Neurological: CRUMB PACKER II-XII intact Results Result Diagram: 10/28/16 0755 10/28/16 0755 Results 24 hrs Laboratory Tests Test 10/28/16 07:55 White Blood Count 12.3 H Red Blood Count 3.46 L Hemoglobin 10.1 L Hematocrit 32.2 L Mean Corpuscular Volume 93.1 Mean Corpuscular Hemoglobin 29.2 Mean Corpuscular Hemoglobin Concent 31.4 L Red Cell Distribution Width 12.4 Platelet Count 514 H Mean Platelet Volume 9.4 Neutrophils % 72.2 Lymphocytes % 15.8 Monocytes % 10.6 Eosinophils % 0.8 Basophils % 0.2 Nucleated Red Blood Cells % 0.0 Neutrophils # 8.9 H Lymphocytes # 2.0 Monocytes # 1.3 H Eosinophils # 0.1 Basophils # 0.0 Nucleated Red Blood Cells # 0.0 Sodium Level 141 Potassium Level 2.9 *L Chloride Level 97 Carbon Dioxide Level 34 H Anion Gap 13 Blood Urea Nitrogen 12 Creatinine 1.01 H Glucose Level 127 # Calcium Level 8.2 L Medications Medications Current Medications Ondansetron HCl (Zofran Inj) 4 mg Q6H PRN IV NAUSEA AND/OR VOMITING; Start at 15:00 Acetaminophen (Tylenol Tab) 650 mg Q6H PRN PO PAIN LEVEL 1-3 OR FEVER Last administered on 10/26/16 17:52; Admin Dose 650 MG; Start 10/25/16 at 15:00 Acetaminophen/ Hydrocodone Bitart ([place] (5/325)) 1 tab Q6H PRN PO MODERATE PAIN LEVEL 4-6; Start 10/25/16 at 15:00 Morphine Sulfate (morphine) 2 mg Q4H PRN IV SEVERE PAIN LEVEL 7-10 Last administered on 10/27/16 14:32; Admin Dose 2 MG; Start 10/25/16 at 15:00 Docusate Sodium (Colace) 100 mg Q12H PRN PO CONSTIPATION; Start 10/25/16 at 15: 00 Magnesium Hydroxide (Milk Of Mag) 30 ml DAILY PRN PO CONSTIPATION; Start at 15:00 Sodium Biphosphate/ Sodium Phosphate (Fleet Enema) 133 ml DAILY PRN [place] CONSTIPATION; Start 10/25/16 at 15:00 Heparin Sodium (Porcine) (Heparin (5000 Units/0.5 ml)) 5,000 unit Q12 SC Last administered on 10/28/16 09:38; Admin Dose 5,000 UNIT; Start 10/25/16 at 21:00 Lorazepam (Ativan) 0.5 mg Q6H PRN IV ANXIETY; Start 10/25/16 at 15:00 Hydralazine HCl (Apresoline) 10 mg Q6H PRN IV ELEVATED BLOOD PRESSURE; Start at 15:00 Nitroglycerin (Nitroglycerin (Sl Tab) 0.4 Mg) 1 tab Q5M PRN SL ANGINA; Start at 15:00 Aspirin (Halfprin) 81 mg DAILY PO Last administered on 10/28/16 09:30; Admin Dose 81 MG; Start 10/26/16 at 09:00 Atorvastatin Calcium (Lipitor) 80 mg HS PO Last administered on 10/27/16 20:46 ; Admin Dose 80 MG; Start 10/25/16 at 21:00 Clopidogrel Bisulfate (plaVIX) 75 mg DAILY PO Last administered on 10/28/16 09 :29; Admin Dose 75 MG; Start 10/26/16 at 09:00 Mirtazapine (Remeron) 7.5 mg HS PO Last administered on 10/27/16 20:46; Admin Dose 7.5 MG; Start 10/25/16 at 21:00 Montelukast Sodium (Singulair) 10 mg QHS PO Last administered on 10/27/16 20: 46; Admin Dose 10 MG; Start 10/25/16 at 21:00 Furosemide 40 mg 40 mg DAILY IV Last administered on 10/28/16 08:45; Admin Dose 40 MG; Start 10/25/16 at 15:30 Piperacillin Sod/ Tazobactam Sod (Zosyn 3.375gm/ 100 ml (Pmx)) 100 ml @ 200 mls /hr Q8 IVPB Last administered on 10/28/16 05:46; Admin Dose 200 MLS/HR; Start 10/25/16 at 22:00 Azithromycin (Zithromax) 500 mg DAILY PO Last administered on 10/28/16 09:30; Admin Dose 500 MG; Start 10/26/16 at 15:00 Potassium Chloride 20 meq 20 meq DAILY PO Last administered on 10/28/16 09:30 ; Admin Dose 20 MEQ; Start 10/28/16 at 09:00 Potassium Chloride (KCl 40 MEQ/250 ML NS) 250 ml @ 62.5 mls/hr Q4H IVPB Last administered on 10/28/16 11:58; Admin Dose 62.5 MLS/HR; Start 10/28/16 at 11:00 ; Stop 10/28/16 at 18:59 TIFFANIE PAT Oct 28, 2016 13:21
--- NOTE | 2016-10-28 15:30 | CONS ---
Date/Time of Note Date/Time of Note DATE: 10/28/16 TIME: 15:27 Assessment/Plan Assessment/Plan Chief Complaint/Hosp Course IMPRESSION: 1. Congestive heart failure would be diastolic by most recent echo December 2015, which revealed an EF of 60% to 65%. EF this admit EF 60/NL EF 2. Abnormal electrocardiogram, assess for acute coronary syndrome with negative troponins x3. 3. History of percutaneous transluminal coronary angioplasty and stent placement, most recently 2013 at the time of STEMI. 4. History of ST elevation myocardial infarction. 5. Upper respiratory infection/pneumonia. 6. Renal failure, slowly improving. 7. Anemia. 8. Leukocytosis. Recc: -Tele -Continue asa/plavix -Continue statin -Continue lasix and follow strickler attendant/output closely and will make slight increase -Continue abx's/bronchodilators Problems: Consultation Date/Type/Reason Admit Date/Time Oct 25, 2016 at 14:22 Initial Consult Date 10/26/16 Type of Consultation: Cardiology Reason for Consultation SOB Referring Provider: ALISON RYDER MD Exam/Review of Systems Vital Signs Vitals Vital Signs Date Time Temp Pulse Resp B/P Pulse Ox O2 Delivery O2 Flow Rate FiO2 10/28/16 12:12 64 10/28/16 11:56 99.8 18 121/47 98 10/28/16 07:53 Nasal Cannula 6.0 10/28/16 02:23 45 Intake and Output 10/27/16 10/27/16 10/28/16 15:00 23:00 07:00 Intake Total 100 ml 500 ml 680 ml Balance 100 ml 500 ml 680 ml Exam Review of Systems: CONSTITUTIONAL: No fevers, chills. PULMONARY: mild sob CARDIOVASCULAR: No chest pain/palpitations GASTROINTESTINAL: No nausea/vomiting. GENITOURINARY: No hematuria/dysuria. MUSCULOSKELETAL: No myagias/arthalgias. PSYCHIATRIC: The patient denies depression. NEUROLOGIC: No weakness Constitutional: alert, oriented Psych: no complaints Head: normocephalic ENMT: mucosa pink and moist Neck: jvd (9 cm water), supple Respiratory: diminished breath sounds (at bases/B) Cardiovascular: regular rate and rhythm Gastrointestinal: non-tender, soft Musculoskeletal: muscle tone (normal) Extremities: edema (none) Neurological: other (No focal deficits) Results Result Diagram: 10/28/16 0755 10/28/16 0755 Results 24 hrs Laboratory Tests Test 10/28/16 07:55 White Blood Count 12.3 H Red Blood Count 3.46 L Hemoglobin 10.1 L Hematocrit 32.2 L Mean Corpuscular Volume 93.1 Mean Corpuscular Hemoglobin 29.2 Mean Corpuscular Hemoglobin Concent 31.4 L Red Cell Distribution Width 12.4 Platelet Count 514 H Mean Platelet Volume 9.4 Neutrophils % 72.2 Lymphocytes % 15.8 Monocytes % 10.6 Eosinophils % 0.8 Basophils % 0.2 Nucleated Red Blood Cells % 0.0 Neutrophils # 8.9 H Lymphocytes # 2.0 Monocytes # 1.3 H Eosinophils # 0.1 Basophils # 0.0 Nucleated Red Blood Cells # 0.0 Sodium Level 141 Potassium Level 2.9 *L Chloride Level 97 Carbon Dioxide Level 34 H Anion Gap 13 Blood Urea Nitrogen 12 Creatinine 1.01 H Glucose Level 127 # Calcium Level 8.2 L Medications Medications Current Medications Ondansetron HCl (Zofran Inj) 4 mg Q6H PRN IV NAUSEA AND/OR VOMITING; Start at 15:00 Acetaminophen (Tylenol Tab) 650 mg Q6H PRN PO PAIN LEVEL 1-3 OR FEVER Last administered on 10/26/16 17:52; Admin Dose 650 MG; Start 10/25/16 at 15:00 Acetaminophen/ Hydrocodone Bitart ([place] (5/325)) 1 tab Q6H PRN PO MODERATE PAIN LEVEL 4-6; Start 10/25/16 at 15:00 Morphine Sulfate (morphine) 2 mg Q4H PRN IV SEVERE PAIN LEVEL 7-10 Last administered on 10/27/16 14:32; Admin Dose 2 MG; Start 10/25/16 at 15:00 Docusate Sodium (Colace) 100 mg Q12H PRN PO CONSTIPATION; Start 10/25/16 at 15: 00 Magnesium Hydroxide (Milk Of Mag) 30 ml DAILY PRN PO CONSTIPATION; Start at 15:00 Sodium Biphosphate/ Sodium Phosphate (Fleet Enema) 133 ml DAILY PRN [place] CONSTIPATION; Start 10/25/16 at 15:00 Heparin Sodium (Porcine) (Heparin (5000 Units/0.5 ml)) 5,000 unit Q12 SC Last administered on 10/28/16 09:38; Admin Dose 5,000 UNIT; Start 10/25/16 at 21:00 Lorazepam (Ativan) 0.5 mg Q6H PRN IV ANXIETY; Start 10/25/16 at 15:00 Hydralazine HCl (Apresoline) 10 mg Q6H PRN IV ELEVATED BLOOD PRESSURE; Start at 15:00 Nitroglycerin (Nitroglycerin (Sl Tab) 0.4 Mg) 1 tab Q5M PRN SL ANGINA; Start at 15:00 Aspirin (Halfprin) 81 mg DAILY PO Last administered on 10/28/16 09:30; Admin Dose 81 MG; Start 10/26/16 at 09:00 Atorvastatin Calcium (Lipitor) 80 mg HS PO Last administered on 10/27/16 20:46 ; Admin Dose 80 MG; Start 10/25/16 at 21:00 Clopidogrel Bisulfate (plaVIX) 75 mg DAILY PO Last administered on 10/28/16 09 :29; Admin Dose 75 MG; Start 10/26/16 at 09:00 Mirtazapine (Remeron) 7.5 mg HS PO Last administered on 10/27/16 20:46; Admin Dose 7.5 MG; Start 10/25/16 at 21:00 Montelukast Sodium (Singulair) 10 mg QHS PO Last administered on 10/27/16 20: 46; Admin Dose 10 MG; Start 10/25/16 at 21:00 Furosemide 40 mg 40 mg DAILY IV Last administered on 10/28/16 08:45; Admin Dose 40 MG; Start 10/25/16 at 15:30 Piperacillin Sod/ Tazobactam Sod (Zosyn 3.375gm/ 100 ml (Pmx)) 100 ml @ 200 mls /hr Q8 IVPB Last administered on 10/28/16 13:51; Admin Dose 200 MLS/HR; Start 10/25/16 at 22:00 Azithromycin (Zithromax) 500 mg DAILY PO Last administered on 10/28/16 09:30; Admin Dose 500 MG; Start 10/26/16 at 15:00 Potassium Chloride 20 meq 20 meq DAILY PO Last administered on 10/28/16 09:30 ; Admin Dose 20 MEQ; Start 10/28/16 at 09:00 Potassium Chloride (KCl 40 MEQ/250 ML NS) 250 ml @ 62.5 mls/hr Q4H IVPB Last administered on 10/28/16t 11:58; Admin Dose 62.5 MLS/HR; Start 10/28/16 at 11:00 ; Stop 10/28/16 at 18:59 DANIS CORTES Oct 28, 2016 15:30
[2016-10-28] MEDS: ACETAMINOPHEN 325 MG TAB PO PRN (19:26)
[2016-10-28] MEDS: MONTELUKAST 10 MG TAB PO SCH (20:38)
[2016-10-28] MEDS: MIRTAZAPINE 15 MG TAB PO SCH (20:38)
[2016-10-28] MEDS: ATORVASTATIN 80 MG TAB PO SCH (20:38)
[2016-10-28] MEDS: ZOLPIDEM 5 MG TAB PO PRN (20:38)
[2016-10-29] VITALS (13 sets, daily range): BP systolic 113–146; BP diastolic 43–64; PULSE 56–95; RESP 15–21
[2016-10-29] MEDS: HYDROCODONE/APAP (5/325) TAB PO PRN ×2 (00:48→21:06)
[2016-10-29] MEDS: ZOLPIDEM 5 MG TAB PO PRN ×2 (00:48→21:06)
[2016-10-29] MEDS: PANTOPRAZOLE (EC) 40 MG TAB PO SCH (05:04)
[2016-10-29] MEDS: PIPER-TAZO 3.375 GM IV (PMX) 100 ML IVPB SCH ×3 (05:05→21:08)
[2016-10-29] MEDS: FUROSEMIDE 40 MG INJ IV SCH ×2 (05:05→17:54)
[2016-10-29] MEDS: ASPIRIN (EC) 81 MG TAB PO SCH (08:36)
[2016-10-29] MEDS: CLOPIDOGREL 75 MG TAB PO SCH (08:36)
[2016-10-29] MEDS: POTASSIUM CHLORIDE (SR) 20 MEQ TAB PO SCH (08:36)
[2016-10-29] MEDS: AZITHROMYCIN 250 MG TAB PO SCH (08:36)
[2016-10-29] MEDS: HEPARIN 5,000 UNIT/0.5 ML VIAL SC SCH ×2 (08:38→21:00)
[2016-10-29 10:42] LABS: ADD SCAN DIFF NO
[2016-10-29 10:55] LABS: BASOPHILS % 0.3 % (0.0-2.0); EOSINOPHILS # 0.4 10^3/ul (0.0-0.5); EOSINOPHILS % 3.2 % (0.0-7.0); HEMATOCRIT 39.5 % (37.0-47.0); HEMOGLOBIN 12.1 g/dl (12.0-16.0); LYMPHOCYTES # 1.7 10^3/ul (0.8-2.9); LYMPHOCYTES % 15.1 % (15.0-51.0); MEAN CORPUSCULAR HEMOGLOBIN 28.7 pg (29.0-33.0); MEAN CORPUSCULAR HGB CONC 30.6 g/dl (32.0-37.0); MEAN CORPUSCULAR VOLUME 93.6 fl (82.0-101.0); MEAN PLATELET VOLUME 9.2 fl (7.4-10.4); MONOCYTE # 0.7 10^3/ul (0.3-0.9); MONOCYTES % 6.5 % (0.0-11.0); NEUTROPHIL # 8.1 10^3/ul (1.6-7.5); NEUTROPHILS % 74.2 % (39.0-77.0); PLATELET COUNT 623 10^3/UL (140-415); RED BLOOD COUNT 4.22 10^6/ul (4.20-5.40); RED CELL DISTRIBUTION WIDTH 12.6 % (11.5-14.5); WHITE BLOOD COUNT 10.9 10^3/ul (4.8-10.8)
[2016-10-29 11:06] LABS: CALCIUM 9.3 mg/dl (8.4-10.2); CREATININE 1.18 mg/dl (0.44-1.00); POTASSIUM 4.2 mmol/L (3.5-5.1)
--- NOTE | 2016-10-29 11:19 | PN ---
Date/Time of Note Date/Time of Note DATE: 10/29/16 TIME: 11:18 Assessment/Plan VTE Prophylaxis VTE Prophylaxis Intervention: heparin Lines/Catheters IV [facility] Urinary Cath still in place: No Assessment/Plan Chief Complaint/Hosp Course ASSESSMENT AND PLAN: 71-year-old female coming in with shortness of breath and cough with signs of pneumonia and congestive heart failure exacerbation and renal insufficiency. 1. Shortness of breath. Again secondary to looks like a combination of pneumonia and congestive heart failure, slowly improving. - f/u pulm and cardiology consult rec's - Holding her home blood pressure medicines for now given acute exacerbation - continue IV Lasix, now BID - Keep the head of the bed elevated greater than 30 degrees. Morphine p.r.n., oxygen supplementation as well. Nitroglycerin p.r.n. -f/u PT and OT consults as well 2. Renal insufficiency - appreciate renal consult as well - improving now - continue hold off on fluids for now since she has got signs of congestive heart failure exacerbation. - monitor Bun/Cr levels, I/O's 3. History of coronary artery disease status post stent placement x3 in the past. - Again, we are holding her home blood pressure medicines - continue aspirin and Plavix, cardiology consult rec's 4. History of stroke in the past. Again, continue aspirin and Plavix. Monitor for now and get PT consult 5. Essential hypertension. Blood pressure is presently stable. Continue to monitor for now. 6. High cholesterol - f/u lipid panel. 7. Gastrointestinal prophylaxis, proton pump inhibitor. 8. Deep venous thrombosis prophylaxis, heparin subcutaneously. Problems: Subjective 24 Hr Interval Summary Free Text/Dictation Pt had some coughing this AM. Seen by consultant intern teams yesterday. Exam/Review of Systems Vital Signs Vitals Vital Signs Date Time Temp Pulse Resp B/P Pulse Ox O2 Delivery O2 Flow Rate FiO2 10/29/16 08:22 66 10/29/16 08:01 6.0 10/29/16 08:00 98.4 18 120/55 92 10/29/16 07:39 Nasal Cannula 10/28/16 02:23 45 Intake and Output 10/28/16 10/28/16 10/29/16 15:00 23:00 07:00 Intake Total 950 ml 450 ml Balance 950 ml 450 ml Exam GENERAL: The patient is sitting up in bed on nonrebreather. Daughter is at the bedside. HEENT: Pupils equal, round, react to light. Extraocular muscles intact. NECK: Supple, no thyromegaly. LUNGS: Rhonchus breath sounds bilaterally, no wheezes. CARDIOVASCULAR: S1, S2 heard. No rubs or gallops. ABDOMEN: Soft, nontender, nondistended. Normal bowel sounds. No rebound or guarding. MUSCULOSKELETAL: She has got 1+ pitting edema bilateral lower extremities to the mid calves. NEUROLOGIC: No focal deficits. Results Result Diagram: 10/29/16 1007 10/29/16 1007 Results 24 hrs Laboratory Tests Test 10/29/16 10:07 White Blood Count 10.9 H Red Blood Count 4.22 # Hemoglobin 12.1 Hematocrit 39.5 # Mean Corpuscular Volume 93.6 Mean Corpuscular Hemoglobin 28.7 L Mean Corpuscular Hemoglobin Concent 30.6 L Red Cell Distribution Width 12.6 Platelet Count 623 #H Mean Platelet Volume 9.2 Neutrophils % 74.2 Lymphocytes % 15.1 Monocytes % 6.5 Eosinophils % 3.2 Basophils % 0.3 Nucleated Red Blood Cells % 0.0 Neutrophils # 8.1 H Lymphocytes # 1.7 Monocytes # 0.7 Eosinophils # 0.4 Basophils # 0.0 Nucleated Red Blood Cells # 0.0 Sodium Level 139 Potassium Level 4.2 Chloride Level 96 L Carbon Dioxide Level 35 H Anion Gap 12 Blood Urea Nitrogen 12 Creatinine 1.18 H Glucose Level 207 Calcium Level 9.3 Medications Medications Current Medications Ondansetron HCl (Zofran Inj) 4 mg Q6H PRN IV NAUSEA AND/OR VOMITING; Start at 15:00 Acetaminophen (Tylenol Tab) 650 mg Q6H PRN PO PAIN LEVEL 1-3 OR FEVER Last administered on 10/28/16 19:26; Admin Dose 650 MG; Start 10/25/16 at 15:00 Acetaminophen/ Hydrocodone Bitart ([place] (5/325)) 1 tab Q6H PRN PO MODERATE PAIN LEVEL 4-6 Last administered on 10/29/16 00:48; Admin Dose 1 TAB; Start at 15:00 Morphine Sulfate (morphine) 2 mg Q4H PRN IV SEVERE PAIN LEVEL 7-10 Last administered on 10/27/16 14:32; Admin Dose 2 MG; Start 10/25/16 at 15:00 Docusate Sodium (Colace) 100 mg Q12H PRN PO CONSTIPATION; Start 10/25/16 at 15: 00 Magnesium Hydroxide (Milk Of Mag) 30 ml DAILY PRN PO CONSTIPATION; Start at 15:00 Sodium Biphosphate/ Sodium Phosphate (Fleet Enema) 133 ml DAILY PRN [place] CONSTIPATION; Start 10/25/16 at 15:00 Heparin Sodium (Porcine) (Heparin (5000 Units/0.5 ml)) 5,000 unit Q12 SC Last administered on 10/29/16 08:38; Admin Dose 5,000 UNIT; Start 10/25/16 at 21:00 Lorazepam (Ativan) 0.5 mg Q6H PRN IV ANXIETY; Start 10/25/16 at 15:00 Hydralazine HCl (Apresoline) 10 mg Q6H PRN IV ELEVATED BLOOD PRESSURE; Start at 15:00 Nitroglycerin (Nitroglycerin (Sl Tab) 0.4 Mg) 1 tab Q5M PRN SL ANGINA; Start at 15:00 Aspirin (Halfprin) 81 mg DAILY PO Last administered on 10/29/16 08:36; Admin Dose 81 MG; Start 10/26/16 at 09:00 Atorvastatin Calcium (Lipitor) 80 mg HS PO Last administered on 10/28/16 20:38 ; Admin Dose 80 MG; Start 10/25/16 at 21:00 Clopidogrel Bisulfate (plaVIX) 75 mg DAILY PO Last administered on 10/29/16 08 :36; Admin Dose 75 MG; Start 10/26/16 at 09:00 Mirtazapine (Remeron) 7.5 mg HS PO Last administered on 10/28/16 20:38; Admin Dose 7.5 MG; Start 10/25/16 at 21:00 Montelukast Sodium 10 mg 10 mg QHS PO Last administered on 10/28/16 20:38; Admin Dose 10 MG; Start 10/25/16 at 21:00 Piperacillin Sod/ Tazobactam Sod (Zosyn 3.375gm/ 100 ml (Pmx)) 100 ml @ 200 mls /hr Q8 IVPB Last administered on 10/29/16 05:05; Admin Dose 200 MLS/HR; Start 10/25/16 at 22:00 Azithromycin (Zithromax) 500 mg DAILY PO Last administered on 10/29/16 08:36; Admin Dose 500 MG; Start 10/26/16 at 15:00 Potassium Chloride (Klor-Con 20) 20 meq DAILY PO Last administered on 08:36; Admin Dose 20 MEQ; Start 10/28/16 at 09:00 ROSS ROJO Oct 29, 2016 11:19
[2016-10-29] MEDS ORDERED: CEPASTAT LOZENGE MT PRN (11:30)
[2016-10-29] MEDS: GUAIFENESIN 20 MG/ML 5ML CUP PO PRN (11:35)
--- NOTE | 2016-10-29 12:04 | CONS ---
Date/Time of Note Date/Time of Note DATE: 10/29/16 TIME: 12:03 Assessment/Plan Assessment/Plan Additional Assessment/Plan Chest x-ray was reviewed from yesterday which is showing significant improvement in pulmonary edema as well as bilateral perihilar infiltrates. Assessment recommendations; 1. Patient admitted for bilateral pneumonia as well as pulmonary edema with significant clinical and radiological improvement. 2. History of left hemiplegia. 3. History of hypertension. Continue current treatment. Consultation Date/Type/Reason Admit Date/Time Oct 25, 2016 at 14:22 Initial Consult Date 10/26/16 Type of Consultation: Pulmonary Referring Provider: ALISON RYDER MD 24 HR Interval Summary Free Text/Dictation Patient condition is significantly improved, patient denies any shortness of breath, chest pain, cough wheezing or sputum production. Denies any fever. General exam; elderly lady, awake alert currently in no distress. Exam/Review of Systems Vital Signs Vitals Vital Signs Date Time Temp Pulse Resp B/P Pulse Ox O2 Delivery O2 Flow Rate FiO2 10/29/16 11:21 98.0 78 21 136/43 92 10/29/16 08:01 6.0 10/29/16 07:39 Nasal Cannula 10/28/16 02:23 45 Intake and Output 10/28/16 10/28/16 10/29/16 15:00 23:00 07:00 Intake Total 950 ml 450 ml Balance 950 ml 450 ml Exam HEENT examination; supple neck, no JVD. No lymphadenopathy. Midline trachea. No thyromegaly. Chest examination; clear to auscultation. S1-S2 audible, no murmurs. Regular rhythm. Abdomen examination; soft, nontender, no organomegaly. Bowel sounds audible. Extremity exam; no peripheral edema. Pulses 1+ bilaterally. RULING TECHNICIAN examination; patient is stable left hemiplegia. Results Result Diagram: 10/29/16 1007 10/29/16 1007 Results 24 hrs Laboratory Tests Test 10/29/16 10:07 White Blood Count 10.9 H Red Blood Count 4.22 # Hemoglobin 12.1 Hematocrit 39.5 # Mean Corpuscular Volume 93.6 Mean Corpuscular Hemoglobin 28.7 L Mean Corpuscular Hemoglobin Concent 30.6 L Red Cell Distribution Width 12.6 Platelet Count 623 #H Mean Platelet Volume 9.2 Neutrophils % 74.2 Lymphocytes % 15.1 Monocytes % 6.5 Eosinophils % 3.2 Basophils % 0.3 Nucleated Red Blood Cells % 0.0 Neutrophils # 8.1 H Lymphocytes # 1.7 Monocytes # 0.7 Eosinophils # 0.4 Basophils # 0.0 Nucleated Red Blood Cells # 0.0 Sodium Level 139 Potassium Level 4.2 Chloride Level 96 L Carbon Dioxide Level 35 H Anion Gap 12 Blood Urea Nitrogen 12 Creatinine 1.18 H Glucose Level 207 Calcium Level 9.3 Medications Medications Current Medications Ondansetron HCl (Zofran Inj) 4 mg Q6H PRN IV NAUSEA AND/OR VOMITING; Start at 15:00 Acetaminophen (Tylenol Tab) 650 mg Q6H PRN PO PAIN LEVEL 1-3 OR FEVER Last administered on 10/28/16 19:26; Admin Dose 650 MG; Start 10/25/16 at 15:00 Acetaminophen/ Hydrocodone Bitart ([place] (5/325)) 1 tab Q6H PRN PO MODERATE PAIN LEVEL 4-6 Last administered on 10/29/16 00:48; Admin Dose 1 TAB; Start at 15:00 Morphine Sulfate (morphine) 2 mg Q4H PRN IV SEVERE PAIN LEVEL 7-10 Last administered on 10/27/16 14:32; Admin Dose 2 MG; Start 10/25/16 at 15:00 Docusate Sodium (Colace) 100 mg Q12H PRN PO CONSTIPATION; Start 10/25/16 at 15: 00 Magnesium Hydroxide (Milk Of Mag) 30 ml DAILY PRN PO CONSTIPATION; Start at 15:00 Sodium Biphosphate/ Sodium Phosphate (Fleet Enema) 133 ml DAILY PRN [place] CONSTIPATION; Start 10/25/16 at 15:00 Heparin Sodium (Porcine) (Heparin (5000 Units/0.5 ml)) 5,000 unit Q12 SC Last administered on 10/29/16 08:38; Admin Dose 5,000 UNIT; Start 10/25/16 at 21:00 Lorazepam (Ativan) 0.5 mg Q6H PRN IV ANXIETY; Start 10/25/16 at 15:00 Hydralazine HCl (Apresoline) 10 mg Q6H PRN IV ELEVATED BLOOD PRESSURE; Start at 15:00 Nitroglycerin (Nitroglycerin (Sl Tab) 0.4 Mg) 1 tab Q5M PRN SL ANGINA; Start at 15:00 Aspirin (Halfprin) 81 mg DAILY PO Last administered on 10/29/16 08:36; Admin Dose 81 MG; Start 10/26/16 at 09:00 Atorvastatin Calcium (Lipitor) 80 mg HS PO Last administered on 10/28/16 20:38 ; Admin Dose 80 MG; Start 10/25/16 at 21:00 Clopidogrel Bisulfate (plaVIX) 75 mg DAILY PO Last administered on 10/29/16 08 :36; Admin Dose 75 MG; Start 10/26/16 at 09:00 Mirtazapine (Remeron) 7.5 mg HS PO Last administered on 10/28/16 20:38; Admin Dose 7.5 MG; Start 10/25/16 at 21:00 Montelukast Sodium 10 mg 10 mg QHS PO Last administered on 10/28/16 20:38; Admin Dose 10 MG; Start 10/25/16 at 21:00 Piperacillin Sod/ Tazobactam Sod (Zosyn 3.375gm/ 100 ml (Pmx)) 100 ml @ 200 mls /hr Q8 IVPB Last administered on 10/29/16 05:05; Admin Dose 200 MLS/HR; Start 10/25/16 at 22:00 Azithromycin (Zithromax) 500 mg DAILY PO Last administered on 10/29/16 08:36; Admin Dose 500 MG; Start 10/26/16 at 15:00 Potassium Chloride (Klor-Con 20) 20 meq DAILY PO Last administered on 08:36; Admin Dose 20 MEQ; Start 10/28/16 at 09:00 Guaifenesin (Robitussin Liquid Cup) 200 mg Q4H PRN PO COUGH Last administered on 10/29/16 11:35; Admin Dose 200 MG; Start 10/29/16 at 11:30 Phenol (Cepastat Lozenge) 1 lozenge Q1H PRN [place] COUGH; Start 10/29/16 at 11:30 KAYODE FINNEGAN Oct 29, 2016 12:04
--- NOTE | 2016-10-29 12:23 | CONS ---
Date/Time of Note Date/Time of Note DATE: 10/29/16 TIME: 12:21 Assessment/Plan Assessment/Plan Chief Complaint/Hosp Course 1. Acute kidney injury due to congestive heart failure, possible systolic heart failure. 2. Hypocalcemia. 3. Elevated BNP. 4. History of paroxysmal atrial fibrillation. 5. History of left carotid endarterectomy. 6. History of congestive heart failure. Problems: Additional Assessment/Plan 1. Optimization kidney function Consultation Date/Type/Reason Admit Date/Time Oct 25, 2016 at 14:22 Initial Consult Date 10/26/16 Type of Consultation: nephrology Reason for Consultation Dr Alberto Referring Provider: ALISON RYDER MD 24 HR Interval Summary Constitutional: other (back pain) Exam/Review of Systems Vital Signs Vitals Vital Signs Date Time Temp Pulse Resp B/P Pulse Ox O2 Delivery O2 Flow Rate FiO2 10/29/16 12:06 73 10/29/16 11:21 98.0 21 136/43 92 10/29/16 08:01 6.0 10/29/16 07:39 Nasal Cannula 10/28/16 02:23 45 Intake and Output 10/28/16 10/28/16 10/29/16 15:00 23:00 07:00 Intake Total 950 ml 450 ml Balance 950 ml 450 ml Exam Constitutional: alert Psych: no complaints Head: normocephalic Eyes: nl conjunctiva ENMT: nl external ears & nose Neck: supple Respiratory: clear to auscultation Cardiovascular: regular rate and rhythm Gastrointestinal: soft Genitourinary - Female: nl external genitalia Results Result Diagram: 10/29/16 1007 10/29/16 1007 Results 24 hrs Laboratory Tests Test 10/29/16 10:07 White Blood Count 10.9 H Red Blood Count 4.22 # Hemoglobin 12.1 Hematocrit 39.5 # Mean Corpuscular Volume 93.6 Mean Corpuscular Hemoglobin 28.7 L Mean Corpuscular Hemoglobin Concent 30.6 L Red Cell Distribution Width 12.6 Platelet Count 623 #H Mean Platelet Volume 9.2 Neutrophils % 74.2 Lymphocytes % 15.1 Monocytes % 6.5 Eosinophils % 3.2 Basophils % 0.3 Nucleated Red Blood Cells % 0.0 Neutrophils # 8.1 H Lymphocytes # 1.7 Monocytes # 0.7 Eosinophils # 0.4 Basophils # 0.0 Nucleated Red Blood Cells # 0.0 Sodium Level 139 Potassium Level 4.2 Chloride Level 96 L Carbon Dioxide Level 35 H Anion Gap 12 Blood Urea Nitrogen 12 Creatinine 1.18 H Glucose Level 207 Calcium Level 9.3 Medications Medications Current Medications Ondansetron HCl (Zofran Inj) 4 mg Q6H PRN IV NAUSEA AND/OR VOMITING; Start at 15:00 Acetaminophen (Tylenol Tab) 650 mg Q6H PRN PO PAIN LEVEL 1-3 OR FEVER Last administered on 10/28/16 19:26; Admin Dose 650 MG; Start 10/25/16 at 15:00 Acetaminophen/ Hydrocodone Bitart ([place] (5/325)) 1 tab Q6H PRN PO MODERATE PAIN LEVEL 4-6 Last administered on 10/29/16 00:48; Admin Dose 1 TAB; Start at 15:00 Morphine Sulfate (morphine) 2 mg Q4H PRN IV SEVERE PAIN LEVEL 7-10 Last administered on 10/27/16 14:32; Admin Dose 2 MG; Start 10/25/16 at 15:00 Docusate Sodium (Colace) 100 mg Q12H PRN PO CONSTIPATION; Start 10/25/16 at 15: 00 Magnesium Hydroxide (Milk Of Mag) 30 ml DAILY PRN PO CONSTIPATION; Start at 15:00 Sodium Biphosphate/ Sodium Phosphate (Fleet Enema) 133 ml DAILY PRN [place] CONSTIPATION; Start 10/25/16 at 15:00 Heparin Sodium (Porcine) (Heparin (5000 Units/0.5 ml)) 5,000 unit Q12 SC Last administered on 10/29/16 08:38; Admin Dose 5,000 UNIT; Start 10/25/16 at 21:00 Lorazepam (Ativan) 0.5 mg Q6H PRN IV ANXIETY; Start 10/25/16 at 15:00 Hydralazine HCl (Apresoline) 10 mg Q6H PRN IV ELEVATED BLOOD PRESSURE; Start at 15:00 Nitroglycerin (Nitroglycerin (Sl Tab) 0.4 Mg) 1 tab Q5M PRN SL ANGINA; Start at 15:00 Aspirin (Halfprin) 81 mg DAILY PO Last administered on 10/29/16 08:36; Admin Dose 81 MG; Start 10/26/16 at 09:00 Atorvastatin Calcium (Lipitor) 80 mg HS PO Last administered on 10/28/16 20:38 ; Admin Dose 80 MG; Start 10/25/16 at 21:00 Clopidogrel Bisulfate (plaVIX) 75 mg DAILY PO Last administered on 10/29/16 08 :36; Admin Dose 75 MG; Start 10/26/16 at 09:00 Mirtazapine (Remeron) 7.5 mg HS PO Last administered on 10/28/16 20:38; Admin Dose 7.5 MG; Start 10/25/16 at 21:00 Montelukast Sodium 10 mg 10 mg QHS PO Last administered on 10/28/16 20:38; Admin Dose 10 MG; Start 10/25/16 at 21:00 Piperacillin Sod/ Tazobactam Sod (Zosyn 3.375gm/ 100 ml (Pmx)) 100 ml @ 200 mls /hr Q8 IVPB Last administered on 10/29/16 05:05; Admin Dose 200 MLS/HR; Start 10/25/16 at 22:00 Azithromycin (Zithromax) 500 mg DAILY PO Last administered on 10/29/16 08:36; Admin Dose 500 MG; Start 10/26/16 at 15:00 Potassium Chloride (Klor-Con 20) 20 meq DAILY PO Last administered on 08:36; Admin Dose 20 MEQ; Start 10/28/16 at 09:00 Guaifenesin (Robitussin Liquid Cup) 200 mg Q4H PRN PO COUGH Last administered on 10/29/16 11:35; Admin Dose 200 MG; Start 10/29/16 at 11:30 Phenol (Cepastat Lozenge) 1 lozenge Q1H PRN MT COUGH; Start 10/29/16 at 11:30 TIFFANIE PAT Oct 29, 2016 12:23
--- NOTE | 2016-10-29 13:14 | CONS ---
Date/Time of Note Date/Time of Note DATE: 10/29/16 TIME: 13:11 Assessment/Plan Assessment/Plan Chief Complaint/Hosp Course IMPRESSION: 1. Congestive heart failure would be diastolic by most recent echo December 2015, which revealed an EF of 60% to 65%. EF this admit EF 60/NL EF. Improving volume status 2. Abnormal electrocardiogram, assess for acute coronary syndrome with negative troponins x3. 3. History of percutaneous transluminal coronary angioplasty and stent placement, most recently 2013 at the time of STEMI. 4. History of ST elevation myocardial infarction. 5. Upper respiratory infection/pneumonia. 6. Renal failure, slowly improving. 7. Anemia. 8. Leukocytosis. Recc: -Tele -Continue asa/plavix -Continue statin -Continue lasix and follow medical editor/output closely -Continue abx's/bronchodilators Problems: Consultation Date/Type/Reason Admit Date/Time Oct 25, 2016 at 14:22 Initial Consult Date 10/26/16 Type of Consultation: Cardiology Reason for Consultation CHF Referring Provider: ALISON RYDER MD Exam/Review of Systems Vital Signs Vitals Vital Signs Date Time Temp Pulse Resp B/P Pulse Ox O2 Delivery O2 Flow Rate FiO2 10/29/16 12:06 73 10/29/16 11:21 98.0 21 136/43 92 10/29/16 08:01 6.0 10/29/16 07:39 Nasal Cannula 10/28/16 02:23 45 Intake and Output 10/28/16 10/28/16 10/29/16 15:00 23:00 07:00 Intake Total 950 ml 450 ml Balance 950 ml 450 ml Exam Review of Systems: CONSTITUTIONAL: No fevers, chills. PULMONARY: mild sob CARDIOVASCULAR: No chest pain/palpitations GASTROINTESTINAL: No nausea/vomiting. GENITOURINARY: No hematuria/dysuria. MUSCULOSKELETAL: No myagias/arthalgias. PSYCHIATRIC: The patient denies depression. NEUROLOGIC: No weakness Constitutional: alert Psych: no complaints Head: normocephalic ENMT: mucosa pink and moist Neck: jvd (9 cm water), supple Respiratory: diminished breath sounds (at bases/B) Cardiovascular: regular rate and rhythm Gastrointestinal: non-tender, soft Musculoskeletal: muscle tone (normal) Extremities: edema (none) Neurological: other (No focal deficits) Results Result Diagram: 10/29/16 1007 10/29/16 1007 Results 24 hrs Laboratory Tests Test 10/29/16 10:07 White Blood Count 10.9 H Red Blood Count 4.22 # Hemoglobin 12.1 Hematocrit 39.5 # Mean Corpuscular Volume 93.6 Mean Corpuscular Hemoglobin 28.7 L Mean Corpuscular Hemoglobin Concent 30.6 L Red Cell Distribution Width 12.6 Platelet Count 623 #H Mean Platelet Volume 9.2 Neutrophils % 74.2 Lymphocytes % 15.1 Monocytes % 6.5 Eosinophils % 3.2 Basophils % 0.3 Nucleated Red Blood Cells % 0.0 Neutrophils # 8.1 H Lymphocytes # 1.7 Monocytes # 0.7 Eosinophils # 0.4 Basophils # 0.0 Nucleated Red Blood Cells # 0.0 Sodium Level 139 Potassium Level 4.2 Chloride Level 96 L Carbon Dioxide Level 35 H Anion Gap 12 Blood Urea Nitrogen 12 Creatinine 1.18 H Glucose Level 207 Calcium Level 9.3 Medications Medications Current Medications Ondansetron HCl (Zofran Inj) 4 mg Q6H PRN IV NAUSEA AND/OR VOMITING; Start at 15:00 Acetaminophen (Tylenol Tab) 650 mg Q6H PRN PO PAIN LEVEL 1-3 OR FEVER Last administered on 10/28/16 19:26; Admin Dose 650 MG; Start 10/25/16 at 15:00 Acetaminophen/ Hydrocodone Bitart ([place] (5/325)) 1 tab Q6H PRN PO MODERATE PAIN LEVEL 4-6 Last administered on 10/29/16 00:48; Admin Dose 1 TAB; Start at 15:00 Morphine Sulfate (morphine) 2 mg Q4H PRN IV SEVERE PAIN LEVEL 7-10 Last administered on 10/27/16 14:32; Admin Dose 2 MG; Start 10/25/16 at 15:00 Docusate Sodium (Colace) 100 mg Q12H PRN PO CONSTIPATION; Start 10/25/16 at 15: 00 Magnesium Hydroxide (Milk Of Mag) 30 ml DAILY PRN PO CONSTIPATION; Start at 15:00 Sodium Biphosphate/ Sodium Phosphate (Fleet Enema) 133 ml DAILY PRN [place] CONSTIPATION; Start 10/25/16 at 15:00 Heparin Sodium (Porcine) (Heparin (5000 Units/0.5 ml)) 5,000 unit Q12 SC Last administered on 10/29/16 08:38; Admin Dose 5,000 UNIT; Start 10/25/16 at 21:00 Lorazepam (Ativan) 0.5 mg Q6H PRN IV ANXIETY; Start 10/25/16 at 15:00 Hydralazine HCl (Apresoline) 10 mg Q6H PRN IV ELEVATED BLOOD PRESSURE; Start at 15:00 Nitroglycerin (Nitroglycerin (Sl Tab) 0.4 Mg) 1 tab Q5M PRN SL ANGINA; Start at 15:00 Aspirin (Halfprin) 81 mg DAILY PO Last administered on 10/29/16 08:36; Admin Dose 81 MG; Start 10/26/16 at 09:00 Atorvastatin Calcium (Lipitor) 80 mg HS PO Last administered on 10/28/16 20:38 ; Admin Dose 80 MG; Start 10/25/16 at 21:00 Clopidogrel Bisulfate (plaVIX) 75 mg DAILY PO Last administered on 10/29/16 08 :36; Admin Dose 75 MG; Start 10/26/16 at 09:00 Mirtazapine (Remeron) 7.5 mg HS PO Last administered on 10/28/16 20:38; Admin Dose 7.5 MG; Start 10/25/16 at 21:00 Montelukast Sodium 10 mg 10 mg QHS PO Last administered on 10/28/16 20:38; Admin Dose 10 MG; Start 10/25/16 at 21:00 Piperacillin Sod/ Tazobactam Sod (Zosyn 3.375gm/ 100 ml (Pmx)) 100 ml @ 200 mls /hr Q8 IVPB Last administered on 10/29/16 05:05; Admin Dose 200 MLS/HR; Start 10/25/16 at 22:00 Azithromycin (Zithromax) 500 mg DAILY PO Last administered on 10/29/16 08:36; Admin Dose 500 MG; Start 10/26/16 at 15:00 Potassium Chloride (Klor-Con 20) 20 meq DAILY PO Last administered on 08:36; Admin Dose 20 MEQ; Start 10/28/16 at 09:00 Guaifenesin (Robitussin Liquid Cup) 200 mg Q4H PRN PO COUGH Last administered on 4/29/17at 11:35; Admin Dose 200 MG; Start 10/29/16 at 11:30 Phenol (Cepastat Lozenge) 1 lozenge Q1H PRN MT COUGH; Start 10/29/16 at 11:30 DANIS CORTES Oct 29, 2016 13:14
[2016-10-29] MEDS: MIRTAZAPINE 15 MG TAB PO SCH (21:06)
[2016-10-29] MEDS: MONTELUKAST 10 MG TAB PO SCH (21:07)
[2016-10-29] MEDS: ATORVASTATIN 80 MG TAB PO SCH (21:07)
[2016-10-30] VITALS (11 sets, daily range): BP systolic 107–136; BP diastolic 50–63; PULSE 61–71; RESP 17–20
[2016-10-30] MEDS: PANTOPRAZOLE (EC) 40 MG TAB PO SCH (05:59)
[2016-10-30] MEDS: FUROSEMIDE 40 MG INJ IV SCH (06:00)
[2016-10-30] MEDS: PIPER-TAZO 3.375 GM IV (PMX) 100 ML IVPB SCH ×3 (06:00→20:37)
[2016-10-30 08:27] LABS: ADD SCAN DIFF NO
[2016-10-30 08:36] LABS: BASOPHILS % 0.4 % (0.0-2.0); EOSINOPHILS # 0.4 10^3/ul (0.0-0.5); EOSINOPHILS % 3.7 % (0.0-7.0); HEMATOCRIT 37.8 % (37.0-47.0); HEMOGLOBIN 11.8 g/dl (12.0-16.0); LYMPHOCYTES # 2.8 10^3/ul (0.8-2.9); MEAN CORPUSCULAR HEMOGLOBIN 29.2 pg (29.0-33.0); MEAN CORPUSCULAR HGB CONC 31.2 g/dl (32.0-37.0); MEAN CORPUSCULAR VOLUME 93.6 fl (82.0-101.0); MONOCYTE # 0.9 10^3/ul (0.3-0.9); MONOCYTES % 8.5 % (0.0-11.0); NEUTROPHIL # 6.5 10^3/ul (1.6-7.5); NEUTROPHILS % 60.7 % (39.0-77.0); PLATELET COUNT 653 10^3/UL (140-415); RED BLOOD COUNT 4.04 10^6/ul (4.20-5.40); RED CELL DISTRIBUTION WIDTH 12.5 % (11.5-14.5); WHITE BLOOD COUNT 10.7 10^3/ul (4.8-10.8)
[2016-10-30] MEDS: HEPARIN 5,000 UNIT/0.5 ML VIAL SC SCH ×2 (08:43→20:56)
[2016-10-30 08:44] LABS: POTASSIUM 4.2 mmol/L (3.5-5.1)
[2016-10-30 08:46] LABS: CREATININE 1.42 mg/dl (0.44-1.00)
[2016-10-30] MEDS: AZITHROMYCIN 250 MG TAB PO SCH (08:46)
[2016-10-30] MEDS: POTASSIUM CHLORIDE (SR) 20 MEQ TAB PO SCH (08:46)
[2016-10-30] MEDS: CLOPIDOGREL 75 MG TAB PO SCH (08:46)
[2016-10-30] MEDS: GUAIFENESIN 20 MG/ML 5ML CUP PO PRN ×3 (08:46→20:32)
[2016-10-30] MEDS: ASPIRIN (EC) 81 MG TAB PO SCH (08:46)
[2016-10-30 08:47] LABS: CALCIUM 9.3 mg/dl (8.4-10.2)
--- NOTE | 2016-10-30 10:18 | PN ---
Date/Time of Note Date/Time of Note DATE: 10/30/16 TIME: 10:16 Assessment/Plan VTE Prophylaxis VTE Prophylaxis Intervention: heparin Lines/Catheters IV [facility]from [facility] Urinary Cath still in place: No Assessment/Plan Chief Complaint/Hosp Course ASSESSMENT AND PLAN: 71-year-old female coming in with shortness of breath and cough with signs of pneumonia and congestive heart failure exacerbation and renal insufficiency. 1. Shortness of breath. Again secondary to looks like a combination of pneumonia and congestive heart failure, slowly improving. - f/u pulm and cardiology consult rec's, try to wean [place] O2 down as tolerated - Holding her home blood pressure medicines for now given acute exacerbation - continue IV Lasix, now BID - Keep the head of the bed elevated greater than 30 degrees. Morphine p.r.n., oxygen supplementation as well. Nitroglycerin p.r.n. -f/u PT and OT consults as well 2. Renal insufficiency - appreciate renal consult as well - improving now - continue hold off on fluids for now since she has got signs of congestive heart failure exacerbation. - monitor Bun/Cr levels, I/O's 3. History of coronary artery disease status post stent placement x3 in the past. - Again, we are holding her home blood pressure medicines - continue aspirin and Plavix, cardiology consult rec's 4. History of stroke in the past. Again, continue aspirin and Plavix. Monitor for now and get PT consult 5. Essential hypertension. Blood pressure is presently stable. Continue to monitor for now. 6. High cholesterol - f/u lipid panel. 7. Gastrointestinal prophylaxis, proton pump inhibitor. 8. Deep venous thrombosis prophylaxis, heparin subcutaneously. Problems: Subjective 24 Hr Interval Summary Free Text/Dictation Pt has less cough, asking when she can go home. Exam/Review of Systems Vital Signs Vitals Vital Signs Date Time Temp Pulse Resp B/P Pulse Ox O2 Delivery O2 Flow Rate FiO2 10/30/16 08:26 61 10/30/16 07:57 Nasal Cannula 6.0 10/30/16 07:44 98.3 17 107/50 100 10/28/16 02:23 45 Intake and Output 10/29/16 10/29/16 10/30/16 15:00 23:00 07:00 Intake Total 100 ml 780 ml 550 ml Balance 100 ml 780 ml 550 ml Exam GENERAL: The patient is sitting up in bed on nonrebreather. Daughter is at the bedside. HEENT: Pupils equal, round, react to light. Extraocular muscles intact. NECK: Supple, no thyromegaly. LUNGS: Rhonchus breath sounds bilaterally, no wheezes. CARDIOVASCULAR: S1, S2 heard. No rubs or gallops. ABDOMEN: Soft, nontender, nondistended. Normal bowel sounds. No rebound or guarding. MUSCULOSKELETAL: She has got 1+ pitting edema bilateral lower extremities to the mid calves. NEUROLOGIC: No focal deficits. Results Result Diagram: 10/30/1680410/30/16804 Results 24 hrs Laboratory Tests Test 10/30/16 08:05 White Blood Count 10.7 Red Blood Count 4.04 L Hemoglobin 11.8 L Hematocrit 37.8 Mean Corpuscular Volume 93.6 Mean Corpuscular Hemoglobin 29.2 Mean Corpuscular Hemoglobin Concent 31.2 L Red Cell Distribution Width 12.5 Platelet Count 653 H Mean Platelet Volume 9.0 Neutrophils % 60.7 Lymphocytes % 26.0 Monocytes % 8.5 Eosinophils % 3.7 Basophils % 0.4 Nucleated Red Blood Cells % 0.0 Neutrophils # 6.5 Lymphocytes # 2.8 Monocytes # 0.9 Eosinophils # 0.4 Basophils # 0.0 Nucleated Red Blood Cells # 0.0 Sodium Level 141 Potassium Level 4.2 Chloride Level 93 L Carbon Dioxide Level 34 H Anion Gap 18 H Blood Urea Nitrogen 18 Creatinine 1.42 H Glucose Level 120 # Calcium Level 9.3 Medications Medications Current Medications Ondansetron HCl (Zofran Inj) 4 mg Q6H PRN IV NAUSEA AND/OR VOMITING; Start at 15:00 Acetaminophen (Tylenol Tab) 650 mg Q6H PRN PO PAIN LEVEL 1-3 OR FEVER Last administered on 10/28/16 19:26; Admin Dose 650 MG; Start 10/25/16 at 15:00 Acetaminophen/ Hydrocodone Bitart ([place] (5/325)) 1 tab Q6H PRN PO MODERATE PAIN LEVEL 4-6 Last administered on 10/29/16 21:06; Admin Dose 1 TAB; Start at 15:00 Morphine Sulfate (morphine) 2 mg Q4H PRN IV SEVERE PAIN LEVEL 7-10 Last administered on 10/27/16 14:32; Admin Dose 2 MG; Start 10/25/16 at 15:00 Docusate Sodium (Colace) 100 mg Q12H PRN PO CONSTIPATION; Start 10/25/16 at 15: 00 Magnesium Hydroxide (Milk Of Mag) 30 ml DAILY PRN PO CONSTIPATION; Start at 15:00 Sodium Biphosphate/ Sodium Phosphate (Fleet Enema) 133 ml DAILY PRN [place] CONSTIPATION; Start 10/25/16 at 15:00 Heparin Sodium (Porcine) (Heparin (5000 Units/0.5 ml)) 5,000 unit Q12 SC Last administered on 10/30/16 08:43; Admin Dose 5,000 UNIT; Start 10/25/16 at 21:00 Lorazepam (Ativan) 0.5 mg Q6H PRN IV ANXIETY; Start 10/25/16 at 15:00 Hydralazine HCl (Apresoline) 10 mg Q6H PRN IV ELEVATED BLOOD PRESSURE; Start at 15:00 Nitroglycerin (Nitroglycerin (Sl Tab) 0.4 Mg) 1 tab Q5M PRN SL ANGINA; Start at 15:00 Aspirin (Halfprin) 81 mg DAILY PO Last administered on 10/30/16 08:46; Admin Dose 81 MG; Start 10/26/16 at 09:00 Atorvastatin Calcium (Lipitor) 80 mg HS PO Last administered on 10/29/16 21:07 ; Admin Dose 80 MG; Start 10/25/16 at 21:00 Clopidogrel Bisulfate (plaVIX) 75 mg DAILY PO Last administered on 10/30/16 08 :46; Admin Dose 75 MG; Start 10/26/16 at 09:00 Mirtazapine (Remeron) 7.5 mg HS PO Last administered on 10/29/16 21:06; Admin Dose 7.5 MG; Start 10/25/16 at 21:00 Montelukast Sodium 10 mg 10 mg QHS PO Last administered on 10/29/16 21:07; Admin Dose 10 MG; Start 10/25/16 at 21:00 Piperacillin Sod/ Tazobactam Sod (Zosyn 3.375gm/ 100 ml (Pmx)) 100 ml @ 200 mls /hr Q8 IVPB Last administered on 4/30/17at 06:00; Admin Dose 200 MLS/HR; Start 10/25/16 at 22:00 Azithromycin (Zithromax) 500 mg DAILY PO Last administered on 10/30/16 08:46; Admin Dose 500 MG; Start 10/26/16 at 15:00 Potassium Chloride (Klor-Con 20) 20 meq DAILY PO Last administered on 08:46; Admin Dose 20 MEQ; Start 10/28/16 at 09:00 Guaifenesin (Robitussin Liquid Cup) 200 mg Q4H PRN PO COUGH Last administered on 10/30/16 08:46; Admin Dose 200 MG; Start 10/29/16 at 11:30 Phenol (Cepastat Lozenge) 1 lozenge Q1H PRN MT COUGH; Start 10/29/16 at 11:30 Pantoprazole (Protonix Tab) 40 mg DAILY@06 PO Last administered on 10/30/16 05 :59; Admin Dose 40 MG; Start 10/30/16 at 06:00 ROSS ROJO Oct 30, 2016 10:18
--- NOTE | 2016-10-30 12:46 | CONS ---
Date/Time of Note Date/Time of Note DATE: 10/30/16 TIME: 12:44 Assessment/Plan Assessment/Plan Chief Complaint/Hosp Course IMPRESSION: 1. Congestive heart failure would be diastolic by most recent echo December 2015, which revealed an EF of 60% to 65%. EF this admit EF 60/NL EF. Improving volume status 2. Abnormal electrocardiogram, assess for acute coronary syndrome with negative troponins x3. 3. History of percutaneous transluminal coronary angioplasty and stent placement, most recently 2013 at the time of STEMI. 4. History of ST elevation myocardial infarction. 5. Upper respiratory infection/pneumonia. 6. Renal failure-worsening? overdiuresis 7. Anemia. 8. Leukocytosis. Recc: -Tele -Continue asa/plavix -Continue statin -Decrease/hold lasix given development of ARF -Continue abx's/bronchodilators Problems: Consultation Date/Type/Reason Admit Date/Time Oct 25, 2016 at 14:22 Initial Consult Date 10/26/16 Type of Consultation: Cardiology Reason for Consultation CHF Referring Provider: ALISON RYDER MD Exam/Review of Systems Vital Signs Vitals Vital Signs Date Time Temp Pulse Resp B/P Pulse Ox O2 Delivery O2 Flow Rate FiO2 10/30/16 12:20 65 10/30/16 11:37 97.6 20 135/56 90 10/30/16 07:57 Nasal Cannula 6.0 10/28/16 02:23 45 Intake and Output 10/29/16 10/29/16 10/30/16 15:00 23:00 07:00 Intake Total 100 ml 780 ml 550 ml Balance 100 ml 780 ml 550 ml Exam Review of Systems: CONSTITUTIONAL: No fevers, chills. PULMONARY: mild sob CARDIOVASCULAR: No chest pain/palpitations GASTROINTESTINAL: abd pain GENITOURINARY: No hematuria/dysuria. MUSCULOSKELETAL: No myagias/arthalgias. PSYCHIATRIC: The patient denies depression. NEUROLOGIC: No weakness Constitutional: alert Psych: no complaints Head: normocephalic ENMT: mucosa pink and moist Neck: jvd (9 cm water), supple Respiratory: diminished breath sounds (at bases/B) Cardiovascular: regular rate and rhythm Gastrointestinal: non-tender, soft Musculoskeletal: muscle tone (normal) Extremities: edema (none) Neurological: other (No focal deficits) Results Result Diagram: 4/30/17 0805 4/30/17 0805 Results 24 hrs Laboratory Tests Test 10/30/16 08:05 White Blood Count 10.7 Red Blood Count 4.04 L Hemoglobin 11.8 L Hematocrit 37.8 Mean Corpuscular Volume 93.6 Mean Corpuscular Hemoglobin 29.2 Mean Corpuscular Hemoglobin Concent 31.2 L Red Cell Distribution Width 12.5 Platelet Count 653 H Mean Platelet Volume 9.0 Neutrophils % 60.7 Lymphocytes % 26.0 Monocytes % 8.5 Eosinophils % 3.7 Basophils % 0.4 Nucleated Red Blood Cells % 0.0 Neutrophils # 6.5 Lymphocytes # 2.8 Monocytes # 0.9 Eosinophils # 0.4 Basophils # 0.0 Nucleated Red Blood Cells # 0.0 Sodium Level 141 Potassium Level 4.2 Chloride Level 93 L Carbon Dioxide Level 34 H Anion Gap 18 H Blood Urea Nitrogen 18 Creatinine 1.42 H Glucose Level 120 # Calcium Level 9.3 Medications Medications Current Medications Ondansetron HCl (Zofran Inj) 4 mg Q6H PRN IV NAUSEA AND/OR VOMITING; Start at 15:00 Acetaminophen (Tylenol Tab) 650 mg Q6H PRN PO PAIN LEVEL 1-3 OR FEVER Last administered on 10/28/16 19:26; Admin Dose 650 MG; Start 10/25/16 at 15:00 Acetaminophen/ Hydrocodone Bitart ([place] (5/325)) 1 tab Q6H PRN PO MODERATE PAIN LEVEL 4-6 Last administered on 10/29/16 21:06; Admin Dose 1 TAB; Start at 15:00 Morphine Sulfate (morphine) 2 mg Q4H PRN IV SEVERE PAIN LEVEL 7-10 Last administered on 10/27/16 14:32; Admin Dose 2 MG; Start 10/25/16 at 15:00 Docusate Sodium (Colace) 100 mg Q12H PRN PO CONSTIPATION; Start 10/25/16 at 15: 00 Magnesium Hydroxide (Milk Of Mag) 30 ml DAILY PRN PO CONSTIPATION; Start at 15:00 Sodium Biphosphate/ Sodium Phosphate (Fleet Enema) 133 ml DAILY PRN [place] CONSTIPATION; Start 10/25/16 at 15:00 Heparin Sodium (Porcine) (Heparin (5000 Units/0.5 ml)) 5,000 unit Q12 SC Last administered on 10/30/16 08:43; Admin Dose 5,000 UNIT; Start 10/25/16 at 21:00 Lorazepam (Ativan) 0.5 mg Q6H PRN IV ANXIETY; Start 10/25/16 at 15:00 Hydralazine HCl (Apresoline) 10 mg Q6H PRN IV ELEVATED BLOOD PRESSURE; Start at 15:00 Nitroglycerin (Nitroglycerin (Sl Tab) 0.4 Mg) 1 tab Q5M PRN SL ANGINA; Start at 15:00 Aspirin (Halfprin) 81 mg DAILY PO Last administered on 10/30/16 08:46; Admin Dose 81 MG; Start 10/26/16 at 09:00 Atorvastatin Calcium (Lipitor) 80 mg HS PO Last administered on 10/29/16 21:07 ; Admin Dose 80 MG; Start 10/25/16 at 21:00 Clopidogrel Bisulfate (plaVIX) 75 mg DAILY PO Last administered on 10/30/16 08 :46; Admin Dose 75 MG; Start 10/26/16 at 09:00 Mirtazapine (Remeron) 7.5 mg HS PO Last administered on 10/29/16 21:06; Admin Dose 7.5 MG; Start 10/25/16 at 21:00 Montelukast Sodium 10 mg 10 mg QHS PO Last administered on 10/29/16 21:07; Admin Dose 10 MG; Start 10/25/16 at 21:00 Piperacillin Sod/ Tazobactam Sod (Zosyn 3.375gm/ 100 ml (Pmx)) 100 ml @ 200 mls /hr Q8 IVPB Last administered on 10/30/16 06:00; Admin Dose 200 MLS/HR; Start 10/25/16 at 22:00 Azithromycin (Zithromax) 500 mg DAILY PO Last administered on 10/30/16 08:46; Admin Dose 500 MG; Start 10/26/16 at 15:00 Potassium Chloride (Klor-Con 20) 20 meq DAILY PO Last administered on 08:46; Admin Dose 20 MEQ; Start 10/28/16 at 09:00 Guaifenesin (Robitussin Liquid Cup) 200 mg Q4H PRN PO COUGH Last administered on 10/30/16 08:46; Admin Dose 200 MG; Start 10/29/16 at 11:30 Phenol (Cepastat Lozenge) 1 lozenge Q1H PRN [place] COUGH; Start 10/29/16 at 11:30 Pantoprazole (Protonix Tab) 40 mg DAILY@06 PO Last administered on 10/30/16t 05 :59; Admin Dose 40 MG; Start 10/30/16 at 06:00 DANIS CORTES Oct 30, 2016 12:46
[2016-10-30] MEDS: ACETAMINOPHEN 325 MG TAB PO PRN (16:19)
--- NOTE | 2016-10-30 18:48 | CONS ---
Date/Time of Note Date/Time of Note DATE: 10/30/16 TIME: 18:47 Assessment/Plan Assessment/Plan Chief Complaint/Hosp Course IMPRESSION: 1. The patient has acute congestive heart failure. 2. Acute kidney injury due to congestive heart failure, possible systolic heart failure. 3. The patient has hypokalemia 4. Hypocalcemia. 5. Elevated BNP. 6. History of paroxysmal atrial fibrillation. 7. History of left carotid endarterectomy. 8. History of congestive heart failure. plan continue lasix Problems: Consultation Date/Type/Reason Admit Date/Time Oct 25, 2016 at 14:22 Initial Consult Date 10/26/16 Type of Consultation: renal Referring Provider: ALISON RYDER MD 24 HR Interval Summary Constitutional: no complaints Exam/Review of Systems Vital Signs Vitals Vital Signs Date Time Temp Pulse Resp B/P Pulse Ox O2 Delivery O2 Flow Rate FiO2 10/30/16 16:14 69 10/30/16 16:02 98.3 20 133/60 94 10/30/16 07:57 Nasal Cannula 6.0 10/28/16 02:23 45 Intake and Output 10/29/16 10/29/16 10/30/16 15:00 23:00 07:00 Intake Total 100 ml 780 ml 550 ml Balance 100 ml 780 ml 550 ml Exam Neck: supple Respiratory: clear to auscultation Cardiovascular: regular rate and rhythm Extremities: edema (+) Results Result Diagram: 10/30/16 0805 10/30/16 0805 Results 24 hrs Laboratory Tests Test 10/30/16 08:05 White Blood Count 10.7 Red Blood Count 4.04 L Hemoglobin 11.8 L Hematocrit 37.8 Mean Corpuscular Volume 93.6 Mean Corpuscular Hemoglobin 29.2 Mean Corpuscular Hemoglobin Concent 31.2 L Red Cell Distribution Width 12.5 Platelet Count 653 H Mean Platelet Volume 9.0 Neutrophils % 60.7 Lymphocytes % 26.0 Monocytes % 8.5 Eosinophils % 3.7 Basophils % 0.4 Nucleated Red Blood Cells % 0.0 Neutrophils # 6.5 Lymphocytes # 2.8 Monocytes # 0.9 Eosinophils # 0.4 Basophils # 0.0 Nucleated Red Blood Cells # 0.0 Sodium Level 141 Potassium Level 4.2 Chloride Level 93 L Carbon Dioxide Level 34 H Anion Gap 18 H Blood Urea Nitrogen 18 Creatinine 1.42 H Glucose Level 120 # Calcium Level 9.3 Medications Medications Current Medications Ondansetron HCl (Zofran Inj) 4 mg Q6H PRN IV NAUSEA AND/OR VOMITING; Start at 15:00 Acetaminophen (Tylenol Tab) 650 mg Q6H PRN PO PAIN LEVEL 1-3 OR FEVER Last administered on 10/30/16 16:19; Admin Dose 650 MG; Start 10/25/16 at 15:00 Acetaminophen/ Hydrocodone Bitart ([place] (5/325)) 1 tab Q6H PRN PO MODERATE PAIN LEVEL 4-6 Last administered on 10/29/16 21:06; Admin Dose 1 TAB; Start at 15:00 Morphine Sulfate (morphine) 2 mg Q4H PRN IV SEVERE PAIN LEVEL 7-10 Last administered on 10/27/16 14:32; Admin Dose 2 MG; Start 10/25/16 at 15:00 Docusate Sodium (Colace) 100 mg Q12H PRN PO CONSTIPATION; Start 10/25/16 at 15: 00 Magnesium Hydroxide (Milk Of Mag) 30 ml DAILY PRN PO CONSTIPATION; Start at 15:00 Sodium Biphosphate/ Sodium Phosphate (Fleet Enema) 133 ml DAILY PRN [place] CONSTIPATION; Start 10/25/16 at 15:00 Heparin Sodium (Porcine) (Heparin (5000 Units/0.5 ml)) 5,000 unit Q12 SC Last administered on 10/30/16 08:43; Admin Dose 5,000 UNIT; Start 10/25/16 at 21:00 Lorazepam (Ativan) 0.5 mg Q6H PRN IV ANXIETY; Start 10/25/16 at 15:00 Hydralazine HCl (Apresoline) 10 mg Q6H PRN IV ELEVATED BLOOD PRESSURE; Start at 15:00 Nitroglycerin (Nitroglycerin (Sl Tab) 0.4 Mg) 1 tab Q5M PRN [place] ANGINA; Start at 15:00 Aspirin (Halfprin) 81 mg DAILY PO Last administered on 10/30/16 08:46; Admin Dose 81 MG; Start 10/26/16 at 09:00 Atorvastatin Calcium (Lipitor) 80 mg HS PO Last administered on 10/29/16 21:07 ; Admin Dose 80 MG; Start 10/25/16 at 21:00 Clopidogrel Bisulfate (plaVIX) 75 mg DAILY PO Last administered on 10/30/16 08 :46; Admin Dose 75 MG; Start 10/26/16 at 09:00 Mirtazapine (Remeron) 7.5 mg HS PO Last administered on 10/29/16 21:06; Admin Dose 7.5 MG; Start 10/25/16 at 21:00 Montelukast Sodium 10 mg 10 mg QHS PO Last administered on 10/29/16 21:07; Admin Dose 10 MG; Start 10/25/16 at 21:00 Piperacillin Sod/ Tazobactam Sod (Zosyn 3.375gm/ 100 ml (Pmx)) 100 ml @ 200 mls /hr Q8 IVPB Last administered on 10/30/16 13:57; Admin Dose 200 MLS/HR; Start 10/25/16 at 22:00 Azithromycin (Zithromax) 500 mg DAILY PO Last administered on 10/30/16 08:46; Admin Dose 500 MG; Start 10/26/16 at 15:00 Potassium Chloride (Klor-Con 20) 20 meq DAILY PO Last administered on 08:46; Admin Dose 20 MEQ; Start 10/28/16 at 09:00 Guaifenesin (Robitussin Liquid Cup) 200 mg Q4H PRN PO COUGH Last administered on 10/30/16 16:15; Admin Dose 200 MG; Start 10/29/16 at 11:30 Phenol (Cepastat Lozenge) 1 lozenge Q1H PRN [place] COUGH; Start 10/29/16 at 11:30 Pantoprazole (Protonix Tab) 40 mg DAILY@06 PO Last administered on 10/30/16 05 :59; Admin Dose 40 MG; Start 10/30/16 at 06:00 Furosemide (Lasix) 40 mg DAILY PO ; Start 10/31/16 at 09:00 GHADA VALENCIA MD Oct 30, 2016 18:48
[2016-10-30] MEDS: ATORVASTATIN 80 MG TAB PO SCH (20:34)
[2016-10-30] MEDS: MONTELUKAST 10 MG TAB PO SCH (20:35)
[2016-10-30] MEDS: HYDROCODONE/APAP (5/325) TAB PO PRN (20:35)
[2016-10-30] MEDS: ZOLPIDEM 5 MG TAB PO PRN ×2 (20:36→21:56)
[2016-10-30] MEDS: MIRTAZAPINE 15 MG TAB PO SCH (20:36)
[2016-10-31] VITALS (12 sets, daily range): BP systolic 114–141; BP diastolic 56–63; PULSE 58–65; RESP 16–19
[2016-10-31] MEDS: GUAIFENESIN 20 MG/ML 5ML CUP PO PRN ×3 (04:37→20:20)
[2016-10-31] MEDS: HYDROCODONE/APAP (5/325) TAB PO PRN ×2 (04:41→20:22)
[2016-10-31] MEDS: PANTOPRAZOLE (EC) 40 MG TAB PO SCH (05:03)
[2016-10-31] MEDS: PIPER-TAZO 3.375 GM IV (PMX) 100 ML IVPB SCH ×2 (05:03→15:15)
[2016-10-31] MEDS: CLOPIDOGREL 75 MG TAB PO SCH (09:07)
[2016-10-31] MEDS: ASPIRIN (EC) 81 MG TAB PO SCH (09:16)
[2016-10-31] MEDS: POTASSIUM CHLORIDE (SR) 20 MEQ TAB PO SCH (09:16)
[2016-10-31] MEDS: FUROSEMIDE 40 MG TAB PO SCH (09:17)
[2016-10-31] MEDS: AZITHROMYCIN 250 MG TAB PO SCH (09:17)
[2016-10-31] MEDS: HEPARIN 5,000 UNIT/0.5 ML VIAL SC SCH ×2 (09:56→20:41)
[2016-10-31 10:22] LABS: ADD SCAN DIFF NO
[2016-10-31 10:26] LABS: BASOPHILS % 0.3 % (0.0-2.0); EOSINOPHILS # 0.4 10^3/ul (0.0-0.5); EOSINOPHILS % 3.3 % (0.0-7.0); HEMOGLOBIN 12.7 g/dl (12.0-16.0); LYMPHOCYTES # 3.3 10^3/ul (0.8-2.9); LYMPHOCYTES % 27.3 % (15.0-51.0); MEAN CORPUSCULAR HEMOGLOBIN 29.3 pg (29.0-33.0); MEAN CORPUSCULAR VOLUME 94.5 fl (82.0-101.0); MEAN PLATELET VOLUME 8.8 fl (7.4-10.4); MONOCYTE # 0.9 10^3/ul (0.3-0.9); NEUTROPHIL # 7.5 10^3/ul (1.6-7.5); NEUTROPHILS % 61.4 % (39.0-77.0); PLATELET COUNT 743 10^3/UL (140-415); RED BLOOD COUNT 4.34 10^6/ul (4.20-5.40); RED CELL DISTRIBUTION WIDTH 12.3 % (11.5-14.5); WHITE BLOOD COUNT 12.2 10^3/ul (4.8-10.8)
[2016-10-31 10:32] LABS: POTASSIUM 3.8 mmol/L (3.5-5.1)
[2016-10-31 10:34] LABS: CREATININE 1.35 mg/dl (0.44-1.00)
[2016-10-31 10:35] LABS: CALCIUM 9.6 mg/dl (8.4-10.2)
[2016-10-31 12:03] LABS: PLATELET ESTIMATE PLT APPEAR INCREASED
--- NOTE | 2016-10-31 14:00 | CONS ---
Date/Time of Note Date/Time of Note DATE: 10/31/16 TIME: 13:57 Assessment/Plan Assessment/Plan Chief Complaint/Hosp Course IMPRESSION: 1. Congestive heart failure would be diastolic by most recent echo December 2015, which revealed an EF of 60% to 65%. EF this admit EF 60/NL EF. Improving volume status 2. Abnormal electrocardiogram, assess for acute coronary syndrome with negative troponins x3. 3. History of percutaneous transluminal coronary angioplasty and stent placement, most recently 2013 at the time of STEMI. 4. History of ST elevation myocardial infarction. 5. Upper respiratory infection/pneumonia. 6. Renal failure-worsening? overdiuresis 7. Anemia. 8. Leukocytosis. Recc: -Tele -Continue asa/plavix -Continue statin -Now on PO lasix daily only -Follow technical support specialist/volume status closely -Continue abx's/bronchodilators Problems: Consultation Date/Type/Reason Admit Date/Time Oct 25, 2016 at 14:22 Initial Consult Date 10/26/16 Type of Consultation: Cardiology Reason for Consultation CHF Referring Provider: ALISON RYDER MD Exam/Review of Systems Vital Signs Vitals Vital Signs Date Time Temp Pulse Resp B/P Pulse Ox O2 Delivery O2 Flow Rate FiO2 10/31/16 12:13 63 10/31/16 11:23 98.4 18 114/58 64 10/31/16 05:42 3.0 10/30/16 20:20 Nasal Cannula 10/28/16 02:23 45 Intake and Output 10/30/16 10/30/16 10/31/16 15:00 23:00 07:00 Intake Total 850 ml 600 ml Balance 850 ml 600 ml Exam Review of Systems: CONSTITUTIONAL: No fevers, chills. PULMONARY: improved sob CARDIOVASCULAR: No chest pain/palpitations GASTROINTESTINAL: No nausea/vomiting. GENITOURINARY: No hematuria/dysuria. MUSCULOSKELETAL: No myagias/arthalgias. PSYCHIATRIC: The patient denies depression. NEUROLOGIC: No weakness Constitutional: alert, oriented Psych: no complaints Head: normocephalic ENMT: mucosa pink and moist Neck: jvd, supple Respiratory: diminished breath sounds (at bases/B) Cardiovascular: regular rate and rhythm Gastrointestinal: non-tender, soft Musculoskeletal: muscle tone (normal) Extremities: edema (none) Neurological: other (No focal deficits) Results Result Diagram: 10/31/16 1001 10/31/16 1010 Results 24 hrs Laboratory Tests Test 10/31/16 10:01 10/31/16 10:10 White Blood Count 12.2 H Red Blood Count 4.34 Hemoglobin 12.7 Hematocrit 41.0 Mean Corpuscular Volume 94.5 Mean Corpuscular Hemoglobin 29.3 Mean Corpuscular Hemoglobin Concent 31.0 L Red Cell Distribution Width 12.3 Platelet Count 743 H Mean Platelet Volume 8.8 Neutrophils % 61.4 Lymphocytes % 27.3 Monocytes % 7.0 Eosinophils % 3.3 Basophils % 0.3 Nucleated Red Blood Cells % 0.0 Neutrophils # 7.5 Lymphocytes # 3.3 H Monocytes # 0.9 Eosinophils # 0.4 Basophils # 0.0 Nucleated Red Blood Cells # 0.0 Differential Comment AUTO w/SCAN Platelet Estimate PLT APPEAR INCREASED Sodium Level 140 Potassium Level 3.8 Chloride Level 92 L Carbon Dioxide Level 33 H Anion Gap 19 H Blood Urea Nitrogen 19 Creatinine 1.35 H Glucose Level 147 Calcium Level 9.6 Medications Medications Current Medications Ondansetron HCl (Zofran Inj) 4 mg Q6H PRN IV NAUSEA AND/OR VOMITING; Start at 15:00 Acetaminophen (Tylenol Tab) 650 mg Q6H PRN PO PAIN LEVEL 1-3 OR FEVER Last administered on 10/30/16 16:19; Admin Dose 650 MG; Start 10/25/16 at 15:00 Acetaminophen/ Hydrocodone Bitart ([place] (5/325)) 1 tab Q6H PRN PO MODERATE PAIN LEVEL 4-6 Last administered on 10/31/16 04:41; Admin Dose 1 TAB; Start at 15:00 Morphine Sulfate (morphine) 2 mg Q4H PRN IV SEVERE PAIN LEVEL 7-10 Last administered on 10/27/16 14:32; Admin Dose 2 MG; Start 10/25/16 at 15:00 Docusate Sodium (Colace) 100 mg Q12H PRN PO CONSTIPATION; Start 10/25/16 at 15: 00 Magnesium Hydroxide (Milk Of Mag) 30 ml DAILY PRN PO CONSTIPATION; Start at 15:00 Sodium Biphosphate/ Sodium Phosphate (Fleet Enema) 133 ml DAILY PRN [place] CONSTIPATION; Start 10/25/16 at 15:00 Heparin Sodium (Porcine) (Heparin (5000 Units/0.5 ml)) 5,000 unit Q12 SC Last administered on 10/31/16 09:56; Admin Dose 5,000 UNIT; Start 10/25/16 at 21:00 Lorazepam (Ativan) 0.5 mg Q6H PRN IV ANXIETY; Start 10/25/16 at 15:00 Hydralazine HCl (Apresoline) 10 mg Q6H PRN IV ELEVATED BLOOD PRESSURE; Start at 15:00 Nitroglycerin (Nitroglycerin (Sl Tab) 0.4 Mg) 1 tab Q5M PRN SL ANGINA; Start at 15:00 Aspirin (Halfprin) 81 mg DAILY PO Last administered on 10/31/16 09:16; Admin Dose 81 MG; Start 10/26/16 at 09:00 Atorvastatin Calcium (Lipitor) 80 mg HS PO Last administered on 10/30/16 20:34 ; Admin Dose 80 MG; Start 10/25/16 at 21:00 Clopidogrel Bisulfate (plaVIX) 75 mg DAILY PO Last administered on 10/31/16 09: 07; Admin Dose 75 MG; Start 10/26/16 at 09:00 Mirtazapine (Remeron) 7.5 mg HS PO Last administered on 10/30/16 20:36; Admin Dose 7.5 MG; Start 10/25/16 at 21:00 Montelukast Sodium 10 mg 10 mg QHS PO Last administered on 10/30/16 20:35; Admin Dose 10 MG; Start 10/25/16 at 21:00 Piperacillin Sod/ Tazobactam Sod (Zosyn 3.375gm/ 100 ml (Pmx)) 100 ml @ 200 mls /hr Q8 IVPB Last administered on 10/31/16 05:03; Admin Dose 200 MLS/HR; Start 10/25/16 at 22:00 Azithromycin (Zithromax) 500 mg DAILY PO Last administered on 10/31/16 09:17; Admin Dose 500 MG; Start 10/26/16 at 15:00 Potassium Chloride (Klor-Con 20) 20 meq DAILY PO Last administered on 10/31/16 09:16; Admin Dose 20 MEQ; Start 10/28/16 at 09:00 Guaifenesin (Robitussin Liquid Cup) 200 mg Q4H PRN PO COUGH Last administered on 10/31/16 04:37; Admin Dose 200 MG; Start 10/29/16 at 11:30 Phenol (Cepastat Lozenge) 1 lozenge Q1H PRN [place] COUGH; Start 10/29/16 at 11:30 Pantoprazole (Protonix Tab) 40 mg DAILY@06 PO Last administered on 10/31/16 05: 03; Admin Dose 40 MG; Start 10/30/16 at 06:00 Furosemide (Lasix) 40 mg DAILY PO Last administered on 10/31/16 09:17; Admin Dose 40 MG; Start 10/31/16 at 09:00 DANIS CORTES October 31, 2016 14:00
[2016-10-31] MEDS: ACETAMINOPHEN 325 MG TAB PO PRN (14:42)
--- NOTE | 2016-10-31 15:46 | PN ---
Date/Time of Note Date/Time of Note DATE: 10/31/16 TIME: 15:36 Assessment/Plan VTE Prophylaxis VTE Prophylaxis Intervention: heparin Lines/Catheters IV [facility] Urinary Cath still in place: No Assessment/Plan Assessment/Plan 71-year-old female coming in with shortness of breath and cough managed for 1. Acute resp failure 2/2 #2 and #3 2. CHF exacerbation - diastolic 3. Probable L sided pneumonia with mild pleural effusion 4. Acute Renal insufficiency - 5. Known Coronary artery disease status post STEMI + stent placement x3 in the past. 6. 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 Essential hypertension. 8. Dyslipidemia 9. Paroxysmal Afib 10. Leucocytosis: ?reactive PLAN: * wean oxygen * ambulate * continue current regimen / po lasix / asa/ statin / plavix * deescalate abx * Suppportive care * Possible d/c home with HH if stable off O2 and renal function stable Gastrointestinal prophylaxis, proton pump inhibitor. Deep venous thrombosis prophylaxis, heparin subcutaneously. Subjective 24 Hr Interval Summary Free Text/Dictation patient states she wants to sleep and has not been able to get any rest Still has some pleuritic chest pain on the L with breathing Exam/Review of Systems Vital Signs Vitals Vital Signs Date Time Temp Pulse Resp B/P Pulse Ox O2 Delivery O2 Flow Rate FiO2 10/31/16 15:30 98.5 66 19 136/60 94 10/31/16 05:42 3.0 10/30/16 20:20 Nasal Cannula 10/28/16 02:23 45 Intake and Output 10/30/16 10/30/16 10/31/16 15:00 23:00 07:00 Intake Total 850 ml 600 ml Balance 850 ml 600 ml Exam GENERAL: The patient is sitting up in bed on nonrebreather. Daughter is at the bedside. HEENT: Pupils equal, round, react to light. Extraocular muscles intact. NECK: Supple, no thyromegaly. LUNGS: fairly good areation actually better on the L CARDIOVASCULAR: S1, S2 heard. No rubs or gallops. ABDOMEN: Soft, nontender, nondistended. Normal bowel sounds. No rebound or guarding. MUSCULOSKELETAL: less edema NEUROLOGIC: No focal deficits. Results Result Diagram: 10/31/16 1001 10/31/16 1010 Results 24 hrs Laboratory Tests Test 10/31/16 10:01 10/31/16 10:10 White Blood Count 12.2 H Red Blood Count 4.34 Hemoglobin 12.7 Hematocrit 41.0 Mean Corpuscular Volume 94.5 Mean Corpuscular Hemoglobin 29.3 Mean Corpuscular Hemoglobin Concent 31.0 L Red Cell Distribution Width 12.3 Platelet Count 743 H Mean Platelet Volume 8.8 Neutrophils % 61.4 Lymphocytes % 27.3 Monocytes % 7.0 Eosinophils % 3.3 Basophils % 0.3 Nucleated Red Blood Cells % 0.0 Neutrophils # 7.5 Lymphocytes # 3.3 H Monocytes # 0.9 Eosinophils # 0.4 Basophils # 0.0 Nucleated Red Blood Cells # 0.0 Differential Comment AUTO w/SCAN Platelet Estimate PLT APPEAR INCREASED Sodium Level 140 Potassium Level 3.8 Chloride Level 92 L Carbon Dioxide Level 33 H Anion Gap 19 H Blood Urea Nitrogen 19 Creatinine 1.35 H Glucose Level 147 Calcium Level 9.6 Medications Medications Current Medications Ondansetron HCl (Zofran Inj) 4 mg Q6H PRN IV NAUSEA AND/OR VOMITING; Start at 15:00 Acetaminophen (Tylenol Tab) 650 mg Q6H PRN PO PAIN LEVEL 1-3 OR FEVER Last administered on 10/31/16 14:42; Admin Dose 650 MG; Start 10/25/16 at 15:00 Acetaminophen/ Hydrocodone Bitart ([place] (5/325)) 1 tab Q6H PRN PO MODERATE PAIN LEVEL 4-6 Last administered on 10/31/16 04:41; Admin Dose 1 TAB; Start at 15:00 Morphine Sulfate (morphine) 2 mg Q4H PRN IV SEVERE PAIN LEVEL 7-10 Last administered on 10/27/16 14:32; Admin Dose 2 MG; Start 10/25/16 at 15:00 Docusate Sodium (Colace) 100 mg Q12H PRN PO CONSTIPATION; Start 10/25/16 at 15: 00 Magnesium Hydroxide (Milk Of Mag) 30 ml DAILY PRN PO CONSTIPATION; Start at 15:00 Sodium Biphosphate/ Sodium Phosphate (Fleet Enema) 133 ml DAILY PRN [place] CONSTIPATION; Start 10/25/16 at 15:00 Heparin Sodium (Porcine) (Heparin (5000 Units/0.5 ml)) 5,000 unit Q12 SC Last administered on 10/31/16 09:56; Admin Dose 5,000 UNIT; Start 10/25/16 at 21:00 Lorazepam (Ativan) 0.5 mg Q6H PRN IV ANXIETY; Start 10/25/16 at 15:00 Hydralazine HCl (Apresoline) 10 mg Q6H PRN IV ELEVATED BLOOD PRESSURE; Start at 15:00 Nitroglycerin (Nitroglycerin (Sl Tab) 0.4 Mg) 1 tab Q5M PRN SL ANGINA; Start at 15:00 Aspirin (Halfprin) 81 mg DAILY PO Last administered on 10/31/16 09:16; Admin Dose 81 MG; Start 10/26/16 at 09:00 Atorvastatin Calcium (Lipitor) 80 mg HS PO Last administered on 10/30/16 20:34 ; Admin Dose 80 MG; Start 10/25/16 at 21:00 Clopidogrel Bisulfate (plaVIX) 75 mg DAILY PO Last administered on 10/31/16 09: 07; Admin Dose 75 MG; Start 10/26/16 at 09:00 Mirtazapine (Remeron) 7.5 mg HS PO Last administered on 10/30/16 20:36; Admin Dose 7.5 MG; Start 10/25/16 at 21:00 Montelukast Sodium 10 mg 10 mg QHS PO Last administered on 10/30/16 20:35; Admin Dose 10 MG; Start 10/25/16 at 21:00 Piperacillin Sod/ Tazobactam Sod (Zosyn 3.375gm/ 100 ml (Pmx)) 100 ml @ 200 mls /hr Q8 IVPB Last administered on 10/31/16 15:15; Admin Dose 200 MLS/HR; Start 10/25/16 at 22:00 Azithromycin (Zithromax) 500 mg DAILY PO Last administered on 10/31/16 09:17; Admin Dose 500 MG; Start 10/26/16 at 15:00 Potassium Chloride (Klor-Con 20) 20 meq DAILY PO Last administered on 10/31/16 09:16; Admin Dose 20 MEQ; Start 10/28/16 at 09:00 Guaifenesin (Robitussin Liquid Cup) 200 mg Q4H PRN PO COUGH Last administered on 10/31/16 14:46; Admin Dose 200 MG; Start 10/29/16 at 11:30 Phenol (Cepastat Lozenge) 1 lozenge Q1H PRN [place] COUGH; Start 10/29/16 at 11:30 Pantoprazole (Protonix Tab) 40 mg DAILY@06 PO Last administered on 10/31/16 05: 03; Admin Dose 40 MG; Start 10/30/16 at 06:00 Furosemide (Lasix) 40 mg DAILY PO Last administered on 10/31/16 09:17; Admin Dose 40 MG; Start 10/31/16 at 09:00 Procedures Procedures PROCEDURE: XR Chest. CLINICAL INDICATION: Heart failure TECHNIQUE: Single frontal view of the chest was obtained. COMPARISON: 10/25/2016 FINDINGS: The cardiomediastinal silhouette is mildly enlarged. Pulmonary vasculature is mildly prominent. There is moderate aortic calcification. There is a small left pleural effusion. There is hazy density through the left mid and lower lung. There is no pneumothorax. The osseous structures and soft tissues are unremarkable. IMPRESSION: 1. Mild cardiomegaly. Moderate aortic calcification. 2. Pulmonary vascular congestion. 3. Small left pleural effusion. Edema and atelectasis through the left lung. The appearance is improved. RPTAT: DD .Giancarlo Cruz MD, MD Date Time Electronically viewed and signed by .Giancarlo Cruz MD, MD on 10/28/2016 10:42 .T/ CC: KAYODE FINNEGAN PROCEDURE: Retroperitoneal US. CLINICAL INDICATION: Renal insufficiency TECHNIQUE: Multiple sonographic images of the kidneys and retroperitoneum were obtained. The images were reviewed on a PACS workstation. COMPARISON: No prior studies are available for comparison. FINDINGS: The kidneys are normal in size, contour, cortical thickness and cortical echogenicity. The right kidney measures 9.5 cm. The left kidney measures 9.4 cm. No kidney stones are visualized. There is no evidence for hydronephrosis. The urinary bladder is normal. The aorta and IVC were not visualized. RPTAT: AA IMPRESSION: Unremarkable retroperitoneal ultrasound. .Vladislav Carlos MD, MD Date Time Electronically viewed and signed by .Vladislav Carlos MD, on 10/27/2016 07: 47 .S/ CC: GHADA VALENCIA MD, BOLATITO M. October 31, 2016 15:46
[2016-10-31] MEDS: CEFTRIAXONE 1 GM/50 ML (PMX) 50 ML IVPB SCH (16:07)
--- NOTE | 2016-10-31 17:15 | RADRPT ---
PROCEDURE: XR Chest. CLINICAL INDICATION: Shortness of breath. TECHNIQUE: Single frontal view. COMPARISON: 10/28/2016. FINDINGS: There is mild interstitial disease bilaterally consistent with pulmonary edema, slightly improved. The lungs are otherwise clear. The heart is mildly enlarged. There is calcification in the aorta consistent with atherosclerosis. There is no pleural effusion. There is no pneumothorax. IMPRESSION: 1. Mild pulmonary edema, slightly improved. 2. Mild cardiomegaly and atherosclerosis. RPTAT: QQ .Ashish Mason MD, MD Date Time Electronically viewed and signed by .Ashish Mason MD, MD on 10/31/2016 17:15 .R/
--- NOTE | 2016-10-31 18:18 | CONS ---
Date/Time of Note Date/Time of Note DATE: 10/31/16 TIME: 18:16 Assessment/Plan Assessment/Plan Chief Complaint/Hosp Course IMPRESSION: 1. The patient has acute congestive heart failure.better 2. Acute kidney injury due to congestive heart failure, possible systolic heart failure.better 3. The patient has hypokalemia better 4. Hypocalcemia. 5. Elevated BNP. 6. History of paroxysmal atrial fibrillation. 7. History of left carotid endarterectomy. 8. History of congestive heart failure. 9 und ckd plan ck bmp Problems: Consultation Date/Type/Reason Admit Date/Time Oct 25, 2016 at 14:22 Initial Consult Date 10/26/16 Type of Consultation: renal Referring Provider: ALISON RYDER MD 24 HR Interval Summary Constitutional: no complaints Exam/Review of Systems Vital Signs Vitals Vital Signs Date Time Temp Pulse Resp B/P Pulse Ox O2 Delivery O2 Flow Rate FiO2 10/31/16 17:15 58 10/31/16 15:30 98.5 19 136/60 94 10/31/16 08:15 Nasal Cannula 3.0 10/28/16 02:23 45 Intake and Output 10/30/16 10/30/16 10/31/16 15:00 23:00 07:00 Intake Total 850 ml 600 ml Balance 850 ml 600 ml Exam Respiratory: clear to auscultation Cardiovascular: regular rate and rhythm Gastrointestinal: soft Musculoskeletal: nl extremities to inspection Extremities: normal pulses Results Result Diagram: 10/31/16 1001 10/31/16 1010 Results 24 hrs Laboratory Tests Test 10/31/16 10:01 10/31/16 10:10 White Blood Count 12.2 H Red Blood Count 4.34 Hemoglobin 12.7 Hematocrit 41.0 Mean Corpuscular Volume 94.5 Mean Corpuscular Hemoglobin 29.3 Mean Corpuscular Hemoglobin Concent 31.0 L Red Cell Distribution Width 12.3 Platelet Count 743 H Mean Platelet Volume 8.8 Neutrophils % 61.4 Lymphocytes % 27.3 Monocytes % 7.0 Eosinophils % 3.3 Basophils % 0.3 Nucleated Red Blood Cells % 0.0 Neutrophils # 7.5 Lymphocytes # 3.3 H Monocytes # 0.9 Eosinophils # 0.4 Basophils # 0.0 Nucleated Red Blood Cells # 0.0 Differential Comment AUTO w/SCAN Platelet Estimate PLT APPEAR INCREASED Sodium Level 140 Potassium Level 3.8 Chloride Level 92 L Carbon Dioxide Level 33 H Anion Gap 19 H Blood Urea Nitrogen 19 Creatinine 1.35 H Glucose Level 147 Calcium Level 9.6 Medications Medications Current Medications Ondansetron HCl (Zofran Inj) 4 mg Q6H PRN IV NAUSEA AND/OR VOMITING; Start at 15:00 Acetaminophen (Tylenol Tab) 650 mg Q6H PRN PO PAIN LEVEL 1-3 OR FEVER Last administered on 10/31/16 14:42; Admin Dose 650 MG; Start 10/25/16 at 15:00 Acetaminophen/ Hydrocodone Bitart ([place] (5/325)) 1 tab Q6H PRN PO MODERATE PAIN LEVEL 4-6 Last administered on 10/31/16 04:41; Admin Dose 1 TAB; Start at 15:00 Morphine Sulfate (morphine) 2 mg Q4H PRN IV SEVERE PAIN LEVEL 7-10 Last administered on 10/27/16 14:32; Admin Dose 2 MG; Start 10/25/16 at 15:00 Docusate Sodium (Colace) 100 mg Q12H PRN PO CONSTIPATION; Start 10/25/16 at 15: 00 Magnesium Hydroxide (Milk Of Mag) 30 ml DAILY PRN PO CONSTIPATION; Start at 15:00 Sodium Biphosphate/ Sodium Phosphate (Fleet Enema) 133 ml DAILY PRN [place] CONSTIPATION; Start 10/25/16 at 15:00 Heparin Sodium (Porcine) (Heparin (5000 Units/0.5 ml)) 5,000 unit Q12 SC Last administered on 10/31/16 09:56; Admin Dose 5,000 UNIT; Start 10/25/16 at 21:00 Lorazepam (Ativan) 0.5 mg Q6H PRN IV ANXIETY; Start 10/25/16 at 15:00 Hydralazine HCl (Apresoline) 10 mg Q6H PRN IV ELEVATED BLOOD PRESSURE; Start at 15:00 Nitroglycerin (Nitroglycerin (Sl Tab) 0.4 Mg) 1 tab Q5M PRN SL ANGINA; Start at 15:00 Aspirin (Halfprin) 81 mg DAILY PO Last administered on 10/31/16 09:16; Admin Dose 81 MG; Start 10/26/16 at 09:00 Atorvastatin Calcium (Lipitor) 80 mg HS PO Last administered on 10/30/16 20:34 ; Admin Dose 80 MG; Start 10/25/16 at 21:00 Clopidogrel Bisulfate (plaVIX) 75 mg DAILY PO Last administered on 10/31/16 09: 07; Admin Dose 75 MG; Start 10/26/16 at 09:00 Mirtazapine (Remeron) 7.5 mg HS PO Last administered on 10/30/16 20:36; Admin Dose 7.5 MG; Start 10/25/16 at 21:00 Montelukast Sodium (Singulair) 10 mg QHS PO Last administered on 10/30/16 20: 35; Admin Dose 10 MG; Start 10/25/16 at 21:00 Azithromycin (Zithromax) 500 mg DAILY PO Last administered on 10/31/16 09:17; Admin Dose 500 MG; Start 10/26/16 at 15:00 Potassium Chloride (Klor-Con 20) 20 meq DAILY PO Last administered on 10/31/16 09:16; Admin Dose 20 MEQ; Start 10/28/16 at 09:00 Guaifenesin (Robitussin Liquid Cup) 200 mg Q4H PRN PO COUGH Last administered on 10/31/16 14:46; Admin Dose 200 MG; Start 10/29/16 at 11:30 Phenol (Cepastat Lozenge) 1 lozenge Q1H PRN [place] COUGH; Start 10/29/16 at 11:30 Pantoprazole (Protonix Tab) 40 mg DAILY@06 PO Last administered on 10/31/16 05: 03; Admin Dose 40 MG; Start 10/30/16 at 06:00 Furosemide 40 mg 40 mg DAILY PO Last administered on 10/31/16 09:17; Admin Dose 40 MG; Start 10/31/16 at 09:00 Ceftriaxone Sodium (Rocephin) 50 ml @ 100 mls/hr Q24H IVPB Last administered on 10/31/16 16:07; Admin Dose 100 MLS/HR; Start 10/31/16 at 16:00 GHADA VALENCIA MD October 31, 2016 18:18
[2016-10-31] MEDS: MIRTAZAPINE 15 MG TAB PO SCH (20:20)
[2016-10-31] MEDS: ATORVASTATIN 80 MG TAB PO SCH (20:21)
[2016-10-31] MEDS: MONTELUKAST 10 MG TAB PO SCH (20:21)
[2016-10-31] MEDS: ZOLPIDEM 5 MG TAB PO PRN (20:21)
[2016-11-01] VITALS (11 sets, daily range): BP systolic 121–148; BP diastolic 46–69; PULSE 33–66; RESP 17–18
[2016-11-01] MEDS: HYDROCODONE/APAP (5/325) TAB PO PRN ×2 (03:52→21:27)
[2016-11-01] MEDS: PANTOPRAZOLE (EC) 40 MG TAB PO SCH (05:06)
[2016-11-01] MEDS: ASPIRIN (EC) 81 MG TAB PO SCH (09:58)
[2016-11-01] MEDS: CLOPIDOGREL 75 MG TAB PO SCH (09:59)
[2016-11-01] MEDS: FUROSEMIDE 40 MG TAB PO SCH (09:59)
[2016-11-01] MEDS: POTASSIUM CHLORIDE (SR) 20 MEQ TAB PO SCH (10:00)
[2016-11-01] MEDS: AZITHROMYCIN 250 MG TAB PO SCH (10:00)
[2016-11-01 10:16] LABS: ADD SCAN DIFF NO
[2016-11-01 10:22] LABS: BASOPHILS % 0.2 % (0.0-2.0); EOSINOPHILS # 0.3 10^3/ul (0.0-0.5); EOSINOPHILS % 3.2 % (0.0-7.0); HEMOGLOBIN 11.1 g/dl (12.0-16.0); LYMPHOCYTES # 2.1 10^3/ul (0.8-2.9); LYMPHOCYTES % 22.5 % (15.0-51.0); MEAN CORPUSCULAR HEMOGLOBIN 29.1 pg (29.0-33.0); MEAN CORPUSCULAR HGB CONC 30.8 g/dl (32.0-37.0); MEAN CORPUSCULAR VOLUME 94.5 fl (82.0-101.0); MEAN PLATELET VOLUME 8.8 fl (7.4-10.4); MONOCYTE # 0.8 10^3/ul (0.3-0.9); MONOCYTES % 8.1 % (0.0-11.0); NEUTROPHIL # 6.2 10^3/ul (1.6-7.5); NEUTROPHILS % 65.4 % (39.0-77.0); PLATELET COUNT 609 10^3/UL (140-415); RED BLOOD COUNT 3.81 10^6/ul (4.20-5.40); RED CELL DISTRIBUTION WIDTH 12.6 % (11.5-14.5); WHITE BLOOD COUNT 9.5 10^3/ul (4.8-10.8)
[2016-11-01 10:43] LABS: CREATININE 1.09 mg/dl (0.44-1.00); POTASSIUM 4.2 mmol/L (3.5-5.1)
[2016-11-01] MEDS: HEPARIN 5,000 UNIT/0.5 ML VIAL SC SCH ×2 (11:07→21:40)
--- NOTE | 2016-11-01 13:48 | PN ---
Date/Time of Note Date/Time of Note DATE: 11/01/16 TIME: 13:40 Assessment/Plan VTE Prophylaxis VTE Prophylaxis Intervention: heparin Lines/Catheters IV [facility] Type [facility]from [facility] Urinary Cath still in place: No Assessment/Plan Assessment/Plan 71-year-old female coming in with shortness of breath and cough managed for 1. Acute resp failure 2/2 #2 and #3 2. CHF exacerbation - diastolic 3. Probable L sided pneumonia with mild pleural effusion 4. Acute Renal insufficiency - 5. Known Coronary artery disease status post STEMI + stent placement x3 in the past. 6. 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 Essential hypertension. 8. Dyslipidemia 9. Paroxysmal Afib 10. Leucocytosis: ?reactive PLAN: * unable to wean off O2 and patient also still quite lethargic * Will increase diuresis if ok with cardiology as renal function has improved and encourage OOB * Notify cardiology about bradycardia and pauses * Chest CT to adequately define lung parenchyma * Supportive care Gastrointestinal prophylaxis, proton pump inhibitor. Deep venous thrombosis prophylaxis, heparin subcutaneously. Subjective 24 Hr Interval Summary Free Text/Dictation still requiring 3L o2 with episodes of jose daniel cardia and ?pauses Exam/Review of Systems Vital Signs Vitals Vital Signs Date Time Temp Pulse Resp B/P Pulse Ox O2 Delivery O2 Flow Rate FiO2 11/01/16 12:06 98.7 60 17 135/53 96 11/01/16 08:15 Nasal Cannula 3.0 Intake and Output 10/31/16 10/31/16 11/01/16 15:00 23:00 07:00 Intake Total 50 ml 600 ml Balance 50 ml 600 ml Exam GENERAL: The patient is sitting up in bed on nonrebreather. Daughter is at the bedside. HEENT: Pupils equal, round, react to light. Extraocular muscles intact. NECK: Supple, no thyromegaly. LUNGS: fairly good aeration actually better on the L CARDIOVASCULAR: S1, S2 heard. No rubs or gallops. ABDOMEN: Soft, nontender, nondistended. Normal bowel sounds. No rebound or guarding. MUSCULOSKELETAL: less edema NEUROLOGIC: No focal deficits. Results Result Diagram: 11/01/16 0950 11/01/16 0950 Results 24 hrs Laboratory Tests Test 11/01/16 09:50 White Blood Count 9.5 # Red Blood Count 3.81 L Hemoglobin 11.1 L Hematocrit 36.0 L Mean Corpuscular Volume 94.5 Mean Corpuscular Hemoglobin 29.1 Mean Corpuscular Hemoglobin Concent 30.8 L Red Cell Distribution Width 12.6 Platelet Count 609 H Mean Platelet Volume 8.8 Neutrophils % 65.4 Lymphocytes % 22.5 Monocytes % 8.1 Eosinophils % 3.2 Basophils % 0.2 Nucleated Red Blood Cells % 0.0 Neutrophils # 6.2 Lymphocytes # 2.1 Monocytes # 0.8 Eosinophils # 0.3 Basophils # 0.0 Nucleated Red Blood Cells # 0.0 Sodium Level 136 Potassium Level 4.2 Chloride Level 97 Carbon Dioxide Level 31 Anion Gap 12 # Blood Urea Nitrogen 18 Creatinine 1.09 H Glucose Level 188 Calcium Level 9.0 Medications Medications Current Medications Ondansetron HCl (Zofran Inj) 4 mg Q6H PRN IV NAUSEA AND/OR VOMITING; Start at 15:00 Acetaminophen (Tylenol Tab) 650 mg Q6H PRN PO PAIN LEVEL 1-3 OR FEVER Last administered on 10/31/16 14:42; Admin Dose 650 MG; Start 10/25/16 at 15:00 Acetaminophen/ Hydrocodone Bitart ([place] (5/325)) 1 tab Q6H PRN PO MODERATE PAIN LEVEL 4-6 Last administered on 11/01/16 03:52; Admin Dose 1 TAB; Start at 15:00 Morphine Sulfate (morphine) 2 mg Q4H PRN IV SEVERE PAIN LEVEL 7-10 Last administered on 10/27/16 14:32; Admin Dose 2 MG; Start 10/25/16 at 15:00 Docusate Sodium (Colace) 100 mg Q12H PRN PO CONSTIPATION; Start 10/25/16 at 15: 00 Magnesium Hydroxide (Milk Of Mag) 30 ml DAILY PRN PO CONSTIPATION; Start at 15:00 Sodium Biphosphate/ Sodium Phosphate (Fleet Enema) 133 ml DAILY PRN [place] CONSTIPATION; Start 10/25/16 at 15:00 Heparin Sodium (Porcine) (Heparin (5000 Units/0.5 ml)) 5,000 unit Q12 SC Last administered on 11/01/16 11:07; Admin Dose 5,000 UNIT; Start 10/25/16 at 21:00 Lorazepam (Ativan) 0.5 mg Q6H PRN IV ANXIETY; Start 10/25/16 at 15:00 Hydralazine HCl (Apresoline) 10 mg Q6H PRN IV ELEVATED BLOOD PRESSURE; Start at 15:00 Nitroglycerin (Nitroglycerin (Sl Tab) 0.4 Mg) 1 tab Q5M PRN SL ANGINA; Start at 15:00 Aspirin (Halfprin) 81 mg DAILY PO Last administered on 11/01/16 09:58; Admin Dose 81 MG; Start 10/26/16 at 09:00 Atorvastatin Calcium (Lipitor) 80 mg HS PO Last administered on 10/31/16 20:21 ; Admin Dose 80 MG; Start 10/25/16 at 21:00 Clopidogrel Bisulfate (plaVIX) 75 mg DAILY PO Last administered on 11/01/16 09: 59; Admin Dose 75 MG; Start 10/26/16 at 09:00 Mirtazapine (Remeron) 7.5 mg HS PO Last administered on 10/31/16 20:20; Admin Dose 7.5 MG; Start 10/25/16 at 21:00 Montelukast Sodium (Singulair) 10 mg QHS PO Last administered on 10/31/16 20:21 ; Admin Dose 10 MG; Start 10/25/16 at 21:00 Azithromycin (Zithromax) 500 mg DAILY PO Last administered on 11/01/16 10:00; Admin Dose 500 MG; Start 10/26/16 at 15:00 Potassium Chloride (Klor-Con 20) 20 meq DAILY PO Last administered on 11/01/16 10:00; Admin Dose 20 MEQ; Start 10/28/16 at 09:00 Guaifenesin (Robitussin Liquid Cup) 200 mg Q4H PRN PO COUGH Last administered on 10/31/16 20:20; Admin Dose 200 MG; Start 10/29/16 at 11:30 Phenol (Cepastat Lozenge) 1 lozenge Q1H PRN MT COUGH; Start 10/29/16 at 11:30 Pantoprazole (Protonix Tab) 40 mg DAILY@06 PO Last administered on 11/01/16 05: 06; Admin Dose 40 MG; Start 10/30/16 at 06:00 Furosemide 40 mg 40 mg DAILY PO Last administered on 11/01/16 09:59; Admin Dose 40 MG; Start 10/31/16 at 09:00 Ceftriaxone Sodium (Rocephin) 50 ml @ 100 mls/hr Q24H IVPB Last administered on 10/31/16 16:07; Admin Dose 100 MLS/HR; Start 10/31/16 at 16:00 Procedures Procedures PROCEDURE: XR Chest. CLINICAL INDICATION: Shortness of breath. TECHNIQUE: Single frontal view. COMPARISON: 10/28/2016. FINDINGS: There is mild interstitial disease bilaterally consistent with pulmonary edema, slightly improved. The lungs are otherwise clear. The heart is mildly enlarged. There is calcification in the aorta consistent with atherosclerosis. There is no pleural effusion. There is no pneumothorax. IMPRESSION: 1. Mild pulmonary edema, slightly improved. 2. Mild cardiomegaly and atherosclerosis. RPTAT: QQ .Ashish Mason MD, Date Time Electronically viewed and signed by .Ashish Mason MD, on 10/31/2016 17:15 .R/ CC: LELAND MCMILLAN BOLATITO M. November 01, 2016 13:48
--- NOTE | 2016-11-01 14:19 | CONS ---
Date/Time of Note Date/Time of Note DATE: 11/01/16 TIME: 14:15 Assessment/Plan Assessment/Plan Additional Assessment/Plan 1. Congestive heart failure would be diastolic by most recent echo December 2015, which revealed an EF of 60% to 65%. EF this admit EF 60/NL EF. Improving volume status - better now. 2. Abnormal electrocardiogram, assess for acute coronary syndrome with negative troponins x3. PT with recurrent episodes of bradycardia - had 3.1 sec pause last night - I tried to explain to the patient that pacemaker might be indicated - she refuses. Not clear if pt is able to make he own decisions - discussed with primary team - will await dispo. 3. History of percutaneous transluminal coronary angioplasty and stent placement, most recently 2013 at the time of STEMI. 4. History of ST elevation myocardial infarction. 5. Upper respiratory infection/pneumonia. 6. Renal failure-worsening? overdiuresis 7. Anemia. 8. Leukocytosis. Consultation Date/Type/Reason Admit Date/Time Oct 25, 2016 at 14:22 Initial Consult Date 10/26/16 Type of Consultation: renal Referring Provider: ALISON RYDER MD 24 HR Interval Summary Free Text/Dictation PT with recurrent episodes of bradycardia - had 3.1 sec pause last night - I tried to explain to the patient that pacemaker might be indicated - she refuses. Not clear if pt is able to make he own decisions - discussed with primary team - will await dispo. ROS: No fever, no chills, no nausea, no vomiting, no diarrhea/constipation No recent weight changes No chest pain, no PND, no orthopnea No dizziness, blurred vision No thirst, no heat or cold intolerance Exam/Review of Systems Vital Signs Vitals Vital Signs Date Time Temp Pulse Resp B/P Pulse Ox O2 Delivery O2 Flow Rate FiO2 11/01/16 12:06 98.7 60 17 135/53 96 11/01/16 09:00 3.0 11/01/16 08:15 Nasal Cannula Intake and Output 10/31/16 10/31/16 11/01/16 15:00 23:00 07:00 Intake Total 50 ml 600 ml Balance 50 ml 600 ml Exam General: WN/WD/NAD, AOx 2-3 psych HEENT: Unicetric/atraumatic/EOMI (follows commands) NECK: JVD elevated, no thyromegaly Lymph: no lymphadenopathy HEART: regular with no S3, II/ systolic murmur at apex LUNGS: Coarse sounds ABD: soft, NT, ND, +BS : Intact Neuro: non focal SKIN: chronic changes EXT: trace edema Results Result Diagram: 11/01/16 0950 11/01/16 0950 Results 24 hrs Laboratory Tests Test 11/01/16 09:50 White Blood Count 9.5 # Red Blood Count 3.81 L Hemoglobin 11.1 L Hematocrit 36.0 L Mean Corpuscular Volume 94.5 Mean Corpuscular Hemoglobin 29.1 Mean Corpuscular Hemoglobin Concent 30.8 L Red Cell Distribution Width 12.6 Platelet Count 609 H Mean Platelet Volume 8.8 Neutrophils % 65.4 Lymphocytes % 22.5 Monocytes % 8.1 Eosinophils % 3.2 Basophils % 0.2 Nucleated Red Blood Cells % 0.0 Neutrophils # 6.2 Lymphocytes # 2.1 Monocytes # 0.8 Eosinophils # 0.3 Basophils # 0.0 Nucleated Red Blood Cells # 0.0 Sodium Level 136 Potassium Level 4.2 Chloride Level 97 Carbon Dioxide Level 31 Anion Gap 12 # Blood Urea Nitrogen 18 Creatinine 1.09 H Glucose Level 188 Calcium Level 9.0 Medications Medications Current Medications Ondansetron HCl (Zofran Inj) 4 mg Q6H PRN IV NAUSEA AND/OR VOMITING; Start at 15:00 Acetaminophen (Tylenol Tab) 650 mg Q6H PRN PO PAIN LEVEL 1-3 OR FEVER Last administered on 10/31/16 14:42; Admin Dose 650 MG; Start 10/25/16 at 15:00 Acetaminophen/ Hydrocodone Bitart ([place] (5/325)) 1 tab Q6H PRN PO MODERATE PAIN LEVEL 4-6 Last administered on 11/01/16 03:52; Admin Dose 1 TAB; Start at 15:00 Morphine Sulfate (morphine) 2 mg Q4H PRN IV SEVERE PAIN LEVEL 7-10 Last administered on 10/27/16 14:32; Admin Dose 2 MG; Start 10/25/16 at 15:00 Docusate Sodium (Colace) 100 mg Q12H PRN PO CONSTIPATION; Start 10/25/16 at 15: 00 Magnesium Hydroxide (Milk Of Mag) 30 ml DAILY PRN PO CONSTIPATION; Start at 15:00 Sodium Biphosphate/ Sodium Phosphate (Fleet Enema) 133 ml DAILY PRN [place] CONSTIPATION; Start 10/25/16 at 15:00 Heparin Sodium (Porcine) (Heparin (5000 Units/0.5 ml)) 5,000 unit Q12 SC Last administered on 11/01/16 11:07; Admin Dose 5,000 UNIT; Start 10/25/16 at 21:00 Lorazepam (Ativan) 0.5 mg Q6H PRN IV ANXIETY; Start 10/25/16 at 15:00 Hydralazine HCl (Apresoline) 10 mg Q6H PRN IV ELEVATED BLOOD PRESSURE; Start at 15:00 Nitroglycerin (Nitroglycerin (Sl Tab) 0.4 Mg) 1 tab Q5M PRN SL ANGINA; Start at 15:00 Aspirin (Halfprin) 81 mg DAILY PO Last administered on 11/01/16 09:58; Admin Dose 81 MG; Start 10/26/16 at 09:00 Atorvastatin Calcium (Lipitor) 80 mg HS PO Last administered on 10/31/16 20:21 ; Admin Dose 80 MG; Start 10/25/16 at 21:00 Clopidogrel Bisulfate (plaVIX) 75 mg DAILY PO Last administered on 11/01/16 09: 59; Admin Dose 75 MG; Start 10/26/16 at 09:00 Mirtazapine (Remeron) 7.5 mg HS PO Last administered on 10/31/16 20:20; Admin Dose 7.5 MG; Start 10/25/16 at 21:00 Montelukast Sodium (Singulair) 10 mg QHS PO Last administered on 10/31/16 20:21 ; Admin Dose 10 MG; Start 10/25/16 at 21:00 Azithromycin (Zithromax) 500 mg DAILY PO Last administered on 11/01/16 10:00; Admin Dose 500 MG; Start 10/26/16 at 15:00 Potassium Chloride (Klor-Con 20) 20 meq DAILY PO Last administered on 11/01/16 10:00; Admin Dose 20 MEQ; Start 10/28/16 at 09:00 Guaifenesin (Robitussin Liquid Cup) 200 mg Q4H PRN PO COUGH Last administered on 10/31/16 20:20; Admin Dose 200 MG; Start 10/29/16 at 11:30 Phenol (Cepastat Lozenge) 1 lozenge Q1H PRN MT COUGH; Start 10/29/16 at 11:30 Pantoprazole 40 mg 40 mg DAILY@06 PO Last administered on 11/01/16 05:06; Admin Dose 40 MG; Start 10/30/16 at 06:00 Ceftriaxone Sodium (Rocephin) 50 ml @ 100 mls/hr Q24H IVPB Last administered on 10/31/16 16:07; Admin Dose 100 MLS/HR; Start 10/31/16 at 16:00 AUGUSTO HOWARD MD November 01, 2016 14:19
--- NOTE | 2016-11-01 15:01 | RADRPT ---
PROCEDURE: Ultrasound of the bilateral lower extremity venous system. CLINICAL INDICATION: Bilateral leg pain and swelling, deep venous thrombosis TECHNIQUE: Alcazar scale with and without compression, color doppler, spectral doppler of the venous system of the bilateral lower extremities was performed. Venous augmentation maneuvers were utilized . COMPARISON: No prior studies are available for comparison. FINDINGS: RIGHT: Common femoral vein: Patent. Femoral vein: Patent. Popliteal vein: Patent. Calf veins: Patent. No soft tissue abnormalities are identified. LEFT: Common femoral vein: Patent. Femoral vein: Patent. Popliteal vein: Patent. Calf veins: Patent. No soft tissue abnormalities are identified. IMPRESSION: No evidence of a deep vein thrombosis within the bilateral lower extremities. RPTAT: AADD .Alban Nava MD, MD Date Time Electronically viewed and signed by .Alban Nava MD, on 11/01/2016 15:01 .B/
[2016-11-01] MEDS: CEFTRIAXONE 1 GM/50 ML (PMX) 50 ML IVPB SCH (15:24)
[2016-11-01] MEDS: FUROSEMIDE 20 MG INJ IV SCH (17:46)
--- NOTE | 2016-11-01 18:35 | QN ---
Documentation Comment spoke with patient's daughter and updated her on treatment plan and need for pacemaker. She will discuss with her mum. LELAND MCMILLAN. November 01, 2016 18:35
[2016-11-01] MEDS: MONTELUKAST 10 MG TAB PO SCH (21:28)
[2016-11-01] MEDS: ATORVASTATIN 80 MG TAB PO SCH (21:28)
[2016-11-01] MEDS: ZOLPIDEM 5 MG TAB PO PRN ×2 (21:28→23:31)
[2016-11-01] MEDS: GUAIFENESIN 20 MG/ML 5ML CUP PO PRN (21:30)
[2016-11-01] MEDS: MIRTAZAPINE 15 MG TAB PO SCH (21:30)
--- NOTE | 2016-11-01 23:09 | CONS ---
Date/Time of Note Date/Time of Note DATE: 11/01/16 TIME: 23:08 Assessment/Plan Assessment/Plan Chief Complaint/Hosp Course IMPRESSION: 1. The patient has acute congestive heart failure.better 2. Acute kidney injury due to congestive heart failure, possible systolic heart failure.better 3. The patient has hypokalemia better 4. Hypocalcemia. 5. Elevated BNP. 6. History of paroxysmal atrial fibrillation. 7. History of left carotid endarterectomy. 8. History of congestive heart failure. 9 und ckd plan ck bmp Problems: Consultation Date/Type/Reason Admit Date/Time Oct 25, 2016 at 14:22 Initial Consult Date 10/26/16 Type of Consultation: renal Referring Provider: ALISON RYDER MD 24 HR Interval Summary Constitutional: no complaints Exam/Review of Systems Vital Signs Vitals Vital Signs Date Time Temp Pulse Resp B/P Pulse Ox O2 Delivery O2 Flow Rate FiO2 11/01/16 20:20 41 11/01/16 20:00 99.0 18 132/55 95 11/01/16 19:32 Nasal Cannula 3.0 Intake and Output 10/31/16 10/31/16 11/01/16 15:00 23:00 07:00 Intake Total 50 ml 600 ml Balance 50 ml 600 ml Exam Respiratory: diminished breath sounds Cardiovascular: regular rate and rhythm Gastrointestinal: soft Extremities: edema (+) Results Result Diagram: 11/01/16 0950 11/01/16 0950 Results 24 hrs Laboratory Tests Test 11/01/16 09:50 White Blood Count 9.5 # Red Blood Count 3.81 L Hemoglobin 11.1 L Hematocrit 36.0 L Mean Corpuscular Volume 94.5 Mean Corpuscular Hemoglobin 29.1 Mean Corpuscular Hemoglobin Concent 30.8 L Red Cell Distribution Width 12.6 Platelet Count 609 H Mean Platelet Volume 8.8 Neutrophils % 65.4 Lymphocytes % 22.5 Monocytes % 8.1 Eosinophils % 3.2 Basophils % 0.2 Nucleated Red Blood Cells % 0.0 Neutrophils # 6.2 Lymphocytes # 2.1 Monocytes # 0.8 Eosinophils # 0.3 Basophils # 0.0 Nucleated Red Blood Cells # 0.0 Sodium Level 136 Potassium Level 4.2 Chloride Level 97 Carbon Dioxide Level 31 Anion Gap 12 # Blood Urea Nitrogen 18 Creatinine 1.09 H Glucose Level 188 Calcium Level 9.0 Medications Medications Current Medications Ondansetron HCl (Zofran Inj) 4 mg Q6H PRN IV NAUSEA AND/OR VOMITING; Start at 15:00 Acetaminophen (Tylenol Tab) 650 mg Q6H PRN PO PAIN LEVEL 1-3 OR FEVER Last administered on 10/31/16 14:42; Admin Dose 650 MG; Start 10/25/16 at 15:00 Acetaminophen/ Hydrocodone Bitart ([place] (5/325)) 1 tab Q6H PRN PO MODERATE PAIN LEVEL 4-6 Last administered on 11/01/16 21:27; Admin Dose 1 TAB; Start at 15:00 Morphine Sulfate (morphine) 2 mg Q4H PRN IV SEVERE PAIN LEVEL 7-10 Last administered on 10/27/16 14:32; Admin Dose 2 MG; Start 10/25/16 at 15:00 Docusate Sodium (Colace) 100 mg Q12H PRN PO CONSTIPATION; Start 10/25/16 at 15: 00 Magnesium Hydroxide (Milk Of Mag) 30 ml DAILY PRN PO CONSTIPATION; Start at 15:00 Sodium Biphosphate/ Sodium Phosphate (Fleet Enema) 133 ml DAILY PRN [place] CONSTIPATION; Start 10/25/16 at 15:00 Heparin Sodium (Porcine) (Heparin (5000 Units/0.5 ml)) 5,000 unit Q12 SC Last administered on 11/01/16 21:40; Admin Dose 5,000 UNIT; Start 10/25/16 at 21:00 Lorazepam (Ativan) 0.5 mg Q6H PRN IV ANXIETY; Start 10/25/16 at 15:00 Hydralazine HCl (Apresoline) 10 mg Q6H PRN IV ELEVATED BLOOD PRESSURE; Start at 15:00 Nitroglycerin (Nitroglycerin (Sl Tab) 0.4 Mg) 1 tab Q5M PRN SL ANGINA; Start at 15:00 Aspirin (Halfprin) 81 mg DAILY PO Last administered on 11/01/16 09:58; Admin Dose 81 MG; Start 10/26/16 at 09:00 Atorvastatin Calcium (Lipitor) 80 mg HS PO Last administered on 11/01/16 21:28 ; Admin Dose 80 MG; Start 10/25/16 at 21:00 Clopidogrel Bisulfate (plaVIX) 75 mg DAILY PO Last administered on 11/01/16 09: 59; Admin Dose 75 MG; Start 10/26/16 at 09:00 Mirtazapine (Remeron) 7.5 mg HS PO Last administered on 11/01/16 21:30; Admin Dose 7.5 MG; Start 10/25/16 at 21:00 Montelukast Sodium (Singulair) 10 mg QHS PO Last administered on 11/01/16 21:28 ; Admin Dose 10 MG; Start 10/25/16 at 21:00 Azithromycin (Zithromax) 500 mg DAILY PO Last administered on 11/01/16 10:00; Admin Dose 500 MG; Start 10/26/16 at 15:00 Potassium Chloride (Klor-Con 20) 20 meq DAILY PO Last administered on 11/01/16 10:00; Admin Dose 20 MEQ; Start 10/28/16 at 09:00 Guaifenesin (Robitussin Liquid Cup) 200 mg Q4H PRN PO COUGH Last administered on 11/01/16 21:30; Admin Dose 200 MG; Start 10/29/16 at 11:30 Phenol (Cepastat Lozenge) 1 lozenge Q1H PRN MT COUGH; Start 10/29/16 at 11:30 Pantoprazole 40 mg 40 mg DAILY@06 PO Last administered on 11/01/16 05:06; Admin Dose 40 MG; Start 10/30/16 at 06:00 Ceftriaxone Sodium (Rocephin) 50 ml @ 100 mls/hr Q24H IVPB Last administered on 11/01/16 15:24; Admin Dose 100 MLS/HR; Start 10/31/16 at 16:00 GHADA VALENCIA MD November 01, 2016 23:08
[2016-11-02] VITALS (12 sets, daily range): BP systolic 111–151; BP diastolic 56–72; PULSE 36–59; RESP 17–20
[2016-11-02] MEDS: PANTOPRAZOLE (EC) 40 MG TAB PO SCH (05:20)
[2016-11-02] MEDS: FUROSEMIDE 20 MG INJ IV SCH (05:20)
[2016-11-02] MEDS: POTASSIUM CHLORIDE (SR) 20 MEQ TAB PO SCH (08:28)
[2016-11-02] MEDS: CLOPIDOGREL 75 MG TAB PO SCH (08:28)
[2016-11-02] MEDS: ASPIRIN (EC) 81 MG TAB PO SCH (08:29)
[2016-11-02] MEDS: AZITHROMYCIN 250 MG TAB PO SCH (08:29)
[2016-11-02] MEDS: HEPARIN 5,000 UNIT/0.5 ML VIAL SC SCH ×2 (08:36→21:08)
--- NOTE | 2016-11-02 09:50 | RADRPT ---
PROCEDURE: CT CHEST WITHOUT CONTRAST CLINICAL INDICATION: Respiratory failure TECHNIQUE: Volumetrically acquired images of the thorax obtained without intravenous contrast were reformatted in the axial, coronal, and sagittal planes. CTDI = 11.0 mGy; DLP = 391 mGy-cm. One or more of the following dose reduction technique were used: Automatic exposure control, adjustment of the mA and/or kV according to patient size, and use of iterative reconstruction technique. COMPARISON: 10/31/2016 chest x-ray FINDINGS: LOWER NECK AND CHEST WALL: Normal. AIRWAYS: The trachea and large airways are normal. Moderate bronchial wall thickening is seen. LUNGS: Mild to moderate centrilobular emphysema is seen throughout the lungs. Focal areas of tree in bud nodularity and centrilobular micronodules are seen in the left upper lobe. Dependent atelectasi s in the right lung base is seen. PLEURA: Trace left effusion with associated atelectasis is seen.. MEDIASTINUM: No mediastinal mass. LYMPH NODES: No significant axillary, hilar, or mediastinal lymphadenopathy by CT size criteria. CARDIAC: The heart size is normal. No pericardial effusion or thickening. VASCULAR: The aorta and main pulmonary artery are normal in caliber. Aortic and coronary atheroscl erotic calcifications are present. OSSEOUS: No suspicious osseous lesions. Scattered degenerative changes of the thoracic spine is vis ualized. Limited evaluation of the upper abdomen is unremarkable. IMPRESSION: 1. Background of mild to moderate centrilobular emphysema and smoking related airways disease/chroni c bronchitis. An acute component of bronchitis (i.e. COPD exacerbation) is likely. 2. Tree in bud nodularity and centrilobular micronodules seen in the left upper lobe may represent a region of infectious bronchiolitis with associated trace parapneumonic effusion and associated atel ectasis. 3. Atherosclerosis. RPTAT:PP .Carloz Rosario MD, MD Date Time Electronically viewed and signed by .Carloz Rosario MD, on 11/02/2016 09:49 .V/
[2016-11-02 10:31] LABS: ADD SCAN DIFF NO
[2016-11-02 10:38] LABS: BASOPHILS % 0.3 % (0.0-2.0); EOSINOPHILS # 0.2 10^3/ul (0.0-0.5); EOSINOPHILS % 1.9 % (0.0-7.0); HEMATOCRIT 38.1 % (37.0-47.0); HEMOGLOBIN 11.7 g/dl (12.0-16.0); LYMPHOCYTES # 2.6 10^3/ul (0.8-2.9); LYMPHOCYTES % 24.5 % (15.0-51.0); MEAN CORPUSCULAR HGB CONC 30.7 g/dl (32.0-37.0); MEAN CORPUSCULAR VOLUME 94.5 fl (82.0-101.0); MEAN PLATELET VOLUME 8.9 fl (7.4-10.4); MONOCYTE # 0.8 10^3/ul (0.3-0.9); MONOCYTES % 7.6 % (0.0-11.0); NEUTROPHIL # 6.9 10^3/ul (1.6-7.5); NEUTROPHILS % 65.1 % (39.0-77.0); PLATELET COUNT 670 10^3/UL (140-415); RED BLOOD COUNT 4.03 10^6/ul (4.20-5.40); RED CELL DISTRIBUTION WIDTH 12.7 % (11.5-14.5); WHITE BLOOD COUNT 10.6 10^3/ul (4.8-10.8)
[2016-11-02 10:49] LABS: POTASSIUM 4.3 mmol/L (3.5-5.1)
[2016-11-02 10:52] LABS: CREATININE 1.68 mg/dl (0.44-1.00)
[2016-11-02 10:53] LABS: CALCIUM 9.2 mg/dl (8.4-10.2)
--- NOTE | 2016-11-02 11:40 | CONS ---
Date/Time of Note Date/Time of Note DATE: 11/02/16 TIME: 11:38 Assessment/Plan Assessment/Plan Additional Assessment/Plan CT chest was reviewed from yesterday which is essentially unremarkable showing minimal left lower lobe pleural changes. Assessment recommendations; 1. Patient admitted for congestive heart failure exacerbation with significant clinical and radiological improvement. 2. History of hypertension. 3. History of CVA with dense left hemiplegia. 4. Increased serum creatinine likely from diuretic use. Discontinue further Lasix. Monitor renal function. Continue other medications. Consider stopping antibiotics. Consultation Date/Type/Reason Admit Date/Time Oct 25, 2016 at 14:22 Initial Consult Date 10/26/16 Type of Consultation: Pulmonary Referring Provider: ALISON RYDER MD 24 HR Interval Summary Free Text/Dictation Patient condition stable. Remains awake and alert. Denies any shortness of breath. General exam; elderly woman, awake currently in no distress. Exam/Review of Systems Vital Signs Vitals Vital Signs Date Time Temp Pulse Resp B/P Pulse Ox O2 Delivery O2 Flow Rate FiO2 11/02/16 11:30 97.8 54 17 137/72 91 11/01/16 19:32 Nasal Cannula 3.0 Intake and Output 11/01/16 11/01/16 11/02/16 15:00 23:00 07:00 Intake Total 800 ml 310 ml Balance 800 ml 310 ml Exam HEENT examination; supple neck, no JVD. No lymphadenopathy. Midline trachea. No thyromegaly. Pharynx is clear. Chest examination; clear to auscultation. No murmurs. Regular rhythm. Abdomen examination; soft, nondistended. No organomegaly. Nontender. Extremity exam; no peripheral edema. [employer] examination; patient is awake alert has stable dense left hemiplegia. Results Result Diagram: 11/02/16 1010 11/02/16 1010 Results 24 hrs Laboratory Tests Test 11/02/16 10:10 White Blood Count 10.6 Red Blood Count 4.03 L Hemoglobin 11.7 L Hematocrit 38.1 Mean Corpuscular Volume 94.5 Mean Corpuscular Hemoglobin 29.0 Mean Corpuscular Hemoglobin Concent 30.7 L Red Cell Distribution Width 12.7 Platelet Count 670 H Mean Platelet Volume 8.9 Neutrophils % 65.1 Lymphocytes % 24.5 Monocytes % 7.6 Eosinophils % 1.9 Basophils % 0.3 Nucleated Red Blood Cells % 0.0 Neutrophils # 6.9 Lymphocytes # 2.6 Monocytes # 0.8 Eosinophils # 0.2 Basophils # 0.0 Nucleated Red Blood Cells # 0.0 Sodium Level 137 Potassium Level 4.3 Chloride Level 92 L Carbon Dioxide Level 32 H Anion Gap 17 H Blood Urea Nitrogen 24 H Creatinine 1.68 H Glucose Level 153 Calcium Level 9.2 Medications Medications Current Medications Ondansetron HCl (Zofran Inj) 4 mg Q6H PRN IV NAUSEA AND/OR VOMITING; Start at 15:00 Acetaminophen (Tylenol Tab) 650 mg Q6H PRN PO PAIN LEVEL 1-3 OR FEVER Last administered on 10/31/16 14:42; Admin Dose 650 MG; Start 10/25/16 at 15:00 Acetaminophen/ Hydrocodone Bitart ([place] (5/325)) 1 tab Q6H PRN PO MODERATE PAIN LEVEL 4-6 Last administered on 11/01/16 21:27; Admin Dose 1 TAB; Start at 15:00 Morphine Sulfate (morphine) 2 mg Q4H PRN IV SEVERE PAIN LEVEL 7-10 Last administered on 10/27/16 14:32; Admin Dose 2 MG; Start 10/25/16 at 15:00 Docusate Sodium (Colace) 100 mg Q12H PRN PO CONSTIPATION; Start 10/25/16 at 15: 00 Magnesium Hydroxide (Milk Of Mag) 30 ml DAILY PRN PO CONSTIPATION; Start at 15:00 Sodium Biphosphate/ Sodium Phosphate (Fleet Enema) 133 ml DAILY PRN [place] CONSTIPATION; Start 10/25/16 at 15:00 Heparin Sodium (Porcine) (Heparin (5000 Units/0.5 ml)) 5,000 unit Q12 SC Last administered on 11/02/16 08:36; Admin Dose 5,000 UNIT; Start 10/25/16 at 21:00 Lorazepam (Ativan) 0.5 mg Q6H PRN IV ANXIETY; Start 10/25/16 at 15:00 Hydralazine HCl (Apresoline) 10 mg Q6H PRN IV ELEVATED BLOOD PRESSURE; Start at 15:00 Nitroglycerin (Nitroglycerin (Sl Tab) 0.4 Mg) 1 tab Q5M PRN SL ANGINA; Start at 15:00 Aspirin (Halfprin) 81 mg DAILY PO Last administered on 11/02/16 08:29; Admin Dose 81 MG; Start 10/26/16 at 09:00 Atorvastatin Calcium (Lipitor) 80 mg HS PO Last administered on 11/01/16 21:28 ; Admin Dose 80 MG; Start 10/25/16 at 21:00 Clopidogrel Bisulfate (plaVIX) 75 mg DAILY PO Last administered on 11/02/16 08: 28; Admin Dose 75 MG; Start 10/26/16 at 09:00 Mirtazapine (Remeron) 7.5 mg HS PO Last administered on 11/01/16 21:30; Admin Dose 7.5 MG; Start 10/25/16 at 21:00 Montelukast Sodium (Singulair) 10 mg QHS PO Last administered on 11/01/16 21:28 ; Admin Dose 10 MG; Start 10/25/16 at 21:00 Azithromycin (Zithromax) 500 mg DAILY PO Last administered on 11/02/16 08:29; Admin Dose 500 MG; Start 10/26/16 at 15:00 Potassium Chloride (Klor-Con 20) 20 meq DAILY PO Last administered on 11/02/16 08:28; Admin Dose 20 MEQ; Start 10/28/16 at 09:00 Guaifenesin (Robitussin Liquid Cup) 200 mg Q4H PRN PO COUGH Last administered on 11/01/16 21:30; Admin Dose 200 MG; Start 10/29/16 at 11:30 Phenol (Cepastat Lozenge) 1 lozenge Q1H PRN MT COUGH; Start 10/29/16 at 11:30 Pantoprazole 40 mg 40 mg DAILY@06 PO Last administered on 11/02/16 05:20; Admin Dose 40 MG; Start 10/30/16 at 06:00 Ceftriaxone Sodium (Rocephin) 50 ml @ 100 mls/hr Q24H IVPB Last administered on 11/01/16 15:24; Admin Dose 100 MLS/HR; Start 10/31/16 at 16:00 Salmeterol Xinafoate/ Fluticasone (Advair 250/50 Diskus) 1 inh BID INH ; Start 11/02/16 at 12:00; Status KAYODE WILLSON November 02, 2016 11:40
[2016-11-02] MEDS: ALBUTEROL/IPRATROPIUM (NEB) 3 ML AMP HHN SCH ×3 (12:41→20:49)
[2016-11-02] MEDS: SALMETEROL/FLUTICASONE 250/50 INHA INH SCH ×2 (15:16→21:00)
[2016-11-02] MEDS: CEFTRIAXONE 1 GM/50 ML (PMX) 50 ML IVPB SCH (16:26)
--- NOTE | 2016-11-02 17:24 | PN ---
Date/Time of Note Date/Time of Note DATE: 11/02/16 TIME: 17:19 Assessment/Plan VTE Prophylaxis VTE Prophylaxis Intervention: heparin Lines/Catheters IV C[facility] Type [facility]from [facility] Urinary Cath still in place: No Assessment/Plan Assessment/Plan 71-year-old female coming in with shortness of breath and cough managed for 1. Acute resp failure 2/2 #2 and #3 : unable to wean to room air 2. CHF exacerbation - diastolic: improved? 3. L sided pneumonia with mild pleural effusion 4. Acute Renal insufficiency - 5. Known Coronary artery disease status post STEMI + stent placement x3 in the past. 6. 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 Essential hypertension. 8. Dyslipidemia 9. Paroxysmal Afib 10. Leucocytosis: ?reactive 11. COPD with bronchiolitis 12. Bradycardia with 3.1 sec pause PLAN: * Continue to wean oxygen / bronchodilator therapy * Pacemaker tentatively scheduled for monday per nurses, consent signed and in chart * Supportive care Gastrointestinal prophylaxis, proton pump inhibitor. Deep venous thrombosis prophylaxis, heparin subcutaneously. Subjective 24 Hr Interval Summary Free Text/Dictation Patient seen and examined. more cooperative with physical exam has consented to pacemaker Exam/Review of Systems Vital Signs Vitals Vital Signs Date Time Temp Pulse Resp B/P Pulse Ox O2 Delivery O2 Flow Rate FiO2 11/02/16 17:06 3.0 11/02/16 16:31 45 11/02/16 16:04 18 98 Nasal Cannula 44 11/02/16 15:49 98.2 134/66 Intake and Output 11/01/16 11/01/16 11/02/16 15:00 23:00 07:00 Intake Total 800 ml 310 ml Balance 800 ml 310 ml Exam GENERAL: alert, still requiring oxygen via NC HEENT: Pupils equal, round, react to light. Extraocular muscles intact. NECK: Supple, no thyromegaly. LUNGS: fairly good aeration actually better on the L CARDIOVASCULAR: S1, S2 heard. No rubs or gallops. ABDOMEN: Soft, nontender, nondistended. Normal bowel sounds. No rebound or guarding. MUSCULOSKELETAL: less edema NEUROLOGIC: L sided hemiparesis, chronic Results Result Diagram: 11/02/16 1010 11/02/16 1010 Results 24 hrs Laboratory Tests Test 11/02/16 10:10 White Blood Count 10.6 Red Blood Count 4.03 L Hemoglobin 11.7 L Hematocrit 38.1 Mean Corpuscular Volume 94.5 Mean Corpuscular Hemoglobin 29.0 Mean Corpuscular Hemoglobin Concent 30.7 L Red Cell Distribution Width 12.7 Platelet Count 670 H Mean Platelet Volume 8.9 Neutrophils % 65.1 Lymphocytes % 24.5 Monocytes % 7.6 Eosinophils % 1.9 Basophils % 0.3 Nucleated Red Blood Cells % 0.0 Neutrophils # 6.9 Lymphocytes # 2.6 Monocytes # 0.8 Eosinophils # 0.2 Basophils # 0.0 Nucleated Red Blood Cells # 0.0 Sodium Level 137 Potassium Level 4.3 Chloride Level 92 L Carbon Dioxide Level 32 H Anion Gap 17 H Blood Urea Nitrogen 24 H Creatinine 1.68 H Glucose Level 153 Calcium Level 9.2 Medications Medications Current Medications Ondansetron HCl (Zofran Inj) 4 mg Q6H PRN IV NAUSEA AND/OR VOMITING; Start at 15:00 Acetaminophen (Tylenol Tab) 650 mg Q6H PRN PO PAIN LEVEL 1-3 OR FEVER Last administered on 10/31/16 14:42; Admin Dose 650 MG; Start 10/25/16 at 15:00 Acetaminophen/ Hydrocodone Bitart ([place] (5/325)) 1 tab Q6H PRN PO MODERATE PAIN LEVEL 4-6 Last administered on 11/01/16 21:27; Admin Dose 1 TAB; Start at 15:00 Morphine Sulfate (morphine) 2 mg Q4H PRN IV SEVERE PAIN LEVEL 7-10 Last administered on 10/27/16 14:32; Admin Dose 2 MG; Start 10/25/16 at 15:00 Docusate Sodium (Colace) 100 mg Q12H PRN PO CONSTIPATION; Start 10/25/16 at 15: 00 Magnesium Hydroxide (Milk Of Mag) 30 ml DAILY PRN PO CONSTIPATION; Start at 15:00 Sodium Biphosphate/ Sodium Phosphate (Fleet Enema) 133 ml DAILY PRN [place] CONSTIPATION; Start 10/25/16 at 15:00 Heparin Sodium (Porcine) (Heparin (5000 Units/0.5 ml)) 5,000 unit Q12 SC Last administered on 11/02/16 08:36; Admin Dose 5,000 UNIT; Start 10/25/16 at 21:00 Lorazepam (Ativan) 0.5 mg Q6H PRN IV ANXIETY; Start 10/25/16 at 15:00 Hydralazine HCl (Apresoline) 10 mg Q6H PRN IV ELEVATED BLOOD PRESSURE; Start at 15:00 Nitroglycerin (Nitroglycerin (Sl Tab) 0.4 Mg) 1 tab Q5M PRN SL ANGINA; Start at 15:00 Aspirin (Halfprin) 81 mg DAILY PO Last administered on 11/02/16 08:29; Admin Dose 81 MG; Start 10/26/16 at 09:00 Atorvastatin Calcium (Lipitor) 80 mg HS PO Last administered on 11/01/16 21:28 ; Admin Dose 80 MG; Start 10/25/16 at 21:00 Clopidogrel Bisulfate (plaVIX) 75 mg DAILY PO Last administered on 11/02/16 08: 28; Admin Dose 75 MG; Start 10/26/16 at 09:00 Mirtazapine (Remeron) 7.5 mg HS PO Last administered on 11/01/16 21:30; Admin Dose 7.5 MG; Start 10/25/16 at 21:00 Montelukast Sodium (Singulair) 10 mg QHS PO Last administered on 11/01/16 21:28 ; Admin Dose 10 MG; Start 10/25/16 at 21:00 Azithromycin (Zithromax) 500 mg DAILY PO Last administered on 11/02/16 08:29; Admin Dose 500 MG; Start 10/26/16 at 15:00 Potassium Chloride (Klor-Con 20) 20 meq DAILY PO Last administered on 11/02/16 08:28; Admin Dose 20 MEQ; Start 10/28/16 at 09:00 Guaifenesin (Robitussin Liquid Cup) 200 mg Q4H PRN PO COUGH Last administered on 11/01/16 21:30; Admin Dose 200 MG; Start 10/29/16 at 11:30 Phenol (Cepastat Lozenge) 1 lozenge Q1H PRN [place] COUGH; Start 10/29/16 at 11:30 Pantoprazole 40 mg 40 mg DAILY@06 PO Last administered on 11/02/16 05:20; Admin Dose 40 MG; Start 10/30/16 at 06:00 Ceftriaxone Sodium (Rocephin) 50 ml @ 100 mls/hr Q24H IVPB Last administered on 11/02/16 16:26; Admin Dose 100 MLS/HR; Start 10/31/16 at 16:00 Salmeterol Xinafoate/ Fluticasone (Advair 250/50 Diskus) 1 inh BID INH Last administered on 11/02/16 15:16; Admin Dose 1 INH; Start 11/02/16 at 12:00 Procedures Procedures PROCEDURE: CT CHEST WITHOUT CONTRAST CLINICAL INDICATION: Respiratory failure TECHNIQUE: Volumetrically acquired images of the thorax obtained without intravenous contrast were reformatted in the axial, coronal, and sagittal planes. CTDI = 11.0 mGy; DLP = 391 mGy-cm. One or more of the following dose reduction technique were used: Automatic exposure control, adjustment of the mA and/or kV according to patient size, and use of iterative reconstruction technique. COMPARISON: 10/31/2016 chest x-ray FINDINGS: LOWER NECK AND CHEST WALL: Normal. AIRWAYS: The trachea and large airways are normal. Moderate bronchial wall thickening is seen. LUNGS: Mild to moderate centrilobular emphysema is seen throughout the lungs. Focal areas of tree in bud nodularity and centrilobular micronodules are seen in the left upper lobe. Dependent atelectasis in the right lung base is seen. PLEURA: Trace left effusion with associated atelectasis is seen.. MEDIASTINUM: No mediastinal mass. LYMPH NODES: No significant axillary, hilar, or mediastinal lymphadenopathy by CT size criteria. CARDIAC: The heart size is normal. No pericardial effusion or thickening. VASCULAR: The aorta and main pulmonary artery are normal in caliber. Aortic and coronary atherosclerotic calcifications are present. OSSEOUS: No suspicious osseous lesions. Scattered degenerative changes of the thoracic spine is visualized. Limited evaluation of the upper abdomen is unremarkable. IMPRESSION: 1. Background of mild to moderate centrilobular emphysema and smoking related airways disease/chronic bronchitis. An acute component of bronchitis (i.e. COPD exacerbation) is likely. 2. Tree in bud nodularity and centrilobular micronodules seen in the left upper lobe may represent a region of infectious bronchiolitis with associated trace parapneumonic effusion and associated atelectasis. 3. Atherosclerosis. RPTAT:PP .Carloz Rosario MD, MD Date Time Electronically viewed and signed by .Carloz Rosario MD, on 11/02/2016 09:49 .V/ CC: LELAND MCMILLAN BOLATITO M. November 02, 2016 17:24
--- NOTE | 2016-11-02 18:15 | CONS ---
Date/Time of Note Date/Time of Note DATE: 11/02/16 TIME: 18:10 Assessment/Plan Assessment/Plan Chief Complaint/Hosp Course IMPRESSION: 1. Congestive heart failure would be diastolic by most recent echo December 2015, which revealed an EF of 60% to 65%. EF this admit EF 60/NL EF. Improved volume status 2. Abnormal electrocardiogram, assess for acute coronary syndrome with negative troponins x3. 3. History of percutaneous transluminal coronary angioplasty and stent placement, most recently 2013 at the time of STEMI. 4. History of ST elevation myocardial infarction. 5. Upper respiratory infection/pneumonia. 6. Renal failure-worsening? overdiuresis/poor cardiac output from [facility] 7. Anemia. 8. Leukocytosis. 9. 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 -Continue abx's/bronchodilators -PPM tomorrow given jose daniel/pause Problems: Consultation Date/Type/Reason Admit Date/Time Oct 25, 2016 at 14:22 Initial Consult Date 10/26/16 Type of Consultation: Cardiology Reason for Consultation CHF Referring Provider: ALISON RYDER MD Exam/Review of Systems Vital Signs Vitals Vital Signs Date Time Temp Pulse Resp B/P Pulse Ox O2 Delivery O2 Flow Rate FiO2 11/02/16 17:06 3.0 11/02/16 16:31 45 11/02/16 16:04 18 98 Nasal Cannula 44 11/02/16 15:49 98.2 134/66 Intake and Output 11/01/16 11/01/16 11/02/16 15:00 23:00 07:00 Intake Total 800 ml 310 ml Balance 800 ml 310 ml Exam Review of Systems: CONSTITUTIONAL: No fevers, chills. PULMONARY: No sob CARDIOVASCULAR: No chest pain/palpitations GASTROINTESTINAL: No nausea/vomiting. GENITOURINARY: No hematuria/dysuria. MUSCULOSKELETAL: No myagias/arthalgias. PSYCHIATRIC: The patient denies depression. NEUROLOGIC: lethargic Constitutional: alert Psych: no complaints Head: normocephalic ENMT: mucosa pink and moist Neck: jvd (8-9 cm water), supple Respiratory: clear to auscultation Cardiovascular: regular rate and rhythm Gastrointestinal: non-tender, soft Musculoskeletal: muscle tone (normal) Extremities: edema (none) Neurological: lethargic, other (No focal deficits) Results Result Diagram: 11/02/16 1010 11/02/16 1010 Results 24 hrs Laboratory Tests Test 11/02/16 10:10 White Blood Count 10.6 Red Blood Count 4.03 L Hemoglobin 11.7 L Hematocrit 38.1 Mean Corpuscular Volume 94.5 Mean Corpuscular Hemoglobin 29.0 Mean Corpuscular Hemoglobin Concent 30.7 L Red Cell Distribution Width 12.7 Platelet Count 670 H Mean Platelet Volume 8.9 Neutrophils % 65.1 Lymphocytes % 24.5 Monocytes % 7.6 Eosinophils % 1.9 Basophils % 0.3 Nucleated Red Blood Cells % 0.0 Neutrophils # 6.9 Lymphocytes # 2.6 Monocytes # 0.8 Eosinophils # 0.2 Basophils # 0.0 Nucleated Red Blood Cells # 0.0 Sodium Level 137 Potassium Level 4.3 Chloride Level 92 L Carbon Dioxide Level 32 H Anion Gap 17 H Blood Urea Nitrogen 24 H Creatinine 1.68 H Glucose Level 153 Calcium Level 9.2 Medications Medications Current Medications Ondansetron HCl (Zofran Inj) 4 mg Q6H PRN IV NAUSEA AND/OR VOMITING; Start at 15:00 Acetaminophen (Tylenol Tab) 650 mg Q6H PRN PO PAIN LEVEL 1-3 OR FEVER Last administered on 10/31/16 14:42; Admin Dose 650 MG; Start 10/25/16 at 15:00 Acetaminophen/ Hydrocodone Bitart ([place] (5/325)) 1 tab Q6H PRN PO MODERATE PAIN LEVEL 4-6 Last administered on 11/01/16 21:27; Admin Dose 1 TAB; Start at 15:00 Morphine Sulfate (morphine) 2 mg Q4H PRN IV SEVERE PAIN LEVEL 7-10 Last administered on 10/27/16 14:32; Admin Dose 2 MG; Start 10/25/16 at 15:00 Magnesium Hydroxide (Milk Of Mag) 30 ml DAILY PRN PO CONSTIPATION; Start at 15:00 Sodium Biphosphate/ Sodium Phosphate (Fleet Enema) 133 ml DAILY PRN [place] CONSTIPATION; Start 10/25/16 at 15:00 Heparin Sodium (Porcine) (Heparin (5000 Units/0.5 ml)) 5,000 unit Q12 SC Last administered on 11/02/16 08:36; Admin Dose 5,000 UNIT; Start 10/25/16 at 21:00 Lorazepam (Ativan) 0.5 mg Q6H PRN IV ANXIETY; Start 10/25/16 at 15:00 Hydralazine HCl (Apresoline) 10 mg Q6H PRN IV ELEVATED BLOOD PRESSURE; Start at 15:00 Nitroglycerin (Nitroglycerin (Sl Tab) 0.4 Mg) 1 tab Q5M PRN SL ANGINA; Start at 15:00 Aspirin (Halfprin) 81 mg DAILY PO Last administered on 11/02/16 08:29; Admin Dose 81 MG; Start 10/26/16 at 09:00 Atorvastatin Calcium (Lipitor) 80 mg HS PO Last administered on 11/01/16 21:28 ; Admin Dose 80 MG; Start 10/25/16 at 21:00 Clopidogrel Bisulfate (plaVIX) 75 mg DAILY PO Last administered on 11/02/16 08: 28; Admin Dose 75 MG; Start 10/26/16 at 09:00 Mirtazapine (Remeron) 7.5 mg HS PO Last administered on 11/01/16 21:30; Admin Dose 7.5 MG; Start 10/25/16 at 21:00 Montelukast Sodium (Singulair) 10 mg QHS PO Last administered on 11/01/16 21:28 ; Admin Dose 10 MG; Start 10/25/16 at 21:00 Azithromycin (Zithromax) 500 mg DAILY PO Last administered on 11/02/16 08:29; Admin Dose 500 MG; Start 10/26/16 at 15:00 Potassium Chloride (Klor-Con 20) 20 meq DAILY PO Last administered on 11/02/16 08:28; Admin Dose 20 MEQ; Start 10/28/16 at 09:00 Guaifenesin (Robitussin Liquid Cup) 200 mg Q4H PRN PO COUGH Last administered on 11/01/16 21:30; Admin Dose 200 MG; Start 10/29/16 at 11:30 Phenol (Cepastat Lozenge) 1 lozenge Q1H PRN MT COUGH; Start 10/29/16 at 11:30 Pantoprazole 40 mg 40 mg DAILY@06 PO Last administered on 11/02/16 05:20; Admin Dose 40 MG; Start 10/30/16 at 06:00 Ceftriaxone Sodium (Rocephin) 50 ml @ 100 mls/hr Q24H IVPB Last administered on 11/02/16 16:26; Admin Dose 100 MLS/HR; Start 10/31/16 at 16:00 Salmeterol Xinafoate/ Fluticasone (Advair 250/50 Diskus) 1 inh BID INH Last administered on 11/02/16 15:16; Admin Dose 1 INH; Start 11/02/16 at 12:00 Docusate Sodium (Colace) 100 mg Q12H PO ; Start 11/03/16 at 03:00 DANIS CORTES November 02, 2016 18:15
[2016-11-02] MEDS ORDERED: CEFAZOLIN 1 GM/50 ML (PMX) 50 ML IVPB ONE (18:30)
[2016-11-02] MEDS: MIRTAZAPINE 15 MG TAB PO SCH (21:01)
[2016-11-02] MEDS: ATORVASTATIN 80 MG TAB PO SCH (21:01)
[2016-11-02] MEDS: MONTELUKAST 10 MG TAB PO SCH (21:01)
--- NOTE | 2016-11-02 21:02 | CONS ---
Date/Time of Note Date/Time of Note DATE: 11/02/16 TIME: 21:02 Assessment/Plan Assessment/Plan Chief Complaint/Hosp Course IMPRESSION: 1. The patient has acute congestive heart failure.better 2. Acute kidney injury due to congestive heart failure, possible systolic heart failure.better 3. The patient has hypokalemia better 4. Hypocalcemia. 5. Elevated BNP. 6. History of paroxysmal atrial fibrillation. 7. History of left carotid endarterectomy. 8. History of congestive heart failure. 9 und ckd plan ck bmp Problems: Consultation Date/Type/Reason Admit Date/Time Oct 25, 2016 at 14:22 Initial Consult Date 10/26/16 Type of Consultation: RENAL Referring Provider: ALISON RYDER MD 24 HR Interval Summary Constitutional: no complaints Exam/Review of Systems Vital Signs Vitals Vital Signs Date Time Temp Pulse Resp B/P Pulse Ox O2 Delivery O2 Flow Rate FiO2 11/02/16 20:49 46 18 94 Nasal Cannula 6.0 11/02/16 20:17 97.7 147/68 11/02/16 16:04 44 Intake and Output 11/01/16 11/01/16 11/02/16 15:00 23:00 07:00 Intake Total 800 ml 310 ml Balance 800 ml 310 ml Exam Respiratory: diminished breath sounds Cardiovascular: regular rate and rhythm Gastrointestinal: soft Musculoskeletal: nl extremities to inspection Extremities: normal pulses Results Result Diagram: 11/02/16 1010 11/02/16 1010 Results 24 hrs Laboratory Tests Test 11/02/16 10:10 White Blood Count 10.6 Red Blood Count 4.03 L Hemoglobin 11.7 L Hematocrit 38.1 Mean Corpuscular Volume 94.5 Mean Corpuscular Hemoglobin 29.0 Mean Corpuscular Hemoglobin Concent 30.7 L Red Cell Distribution Width 12.7 Platelet Count 670 H Mean Platelet Volume 8.9 Neutrophils % 65.1 Lymphocytes % 24.5 Monocytes % 7.6 Eosinophils % 1.9 Basophils % 0.3 Nucleated Red Blood Cells % 0.0 Neutrophils # 6.9 Lymphocytes # 2.6 Monocytes # 0.8 Eosinophils # 0.2 Basophils # 0.0 Nucleated Red Blood Cells # 0.0 Sodium Level 137 Potassium Level 4.3 Chloride Level 92 L Carbon Dioxide Level 32 H Anion Gap 17 H Blood Urea Nitrogen 24 H Creatinine 1.68 H Glucose Level 153 Calcium Level 9.2 Medications Medications Current Medications Ondansetron HCl (Zofran Inj) 4 mg Q6H PRN IV NAUSEA AND/OR VOMITING; Start at 15:00 Acetaminophen (Tylenol Tab) 650 mg Q6H PRN PO PAIN LEVEL 1-3 OR FEVER Last administered on 10/31/16 14:42; Admin Dose 650 MG; Start 10/25/16 at 15:00 Acetaminophen/ Hydrocodone Bitart ([place] (5/325)) 1 tab Q6H PRN PO MODERATE PAIN LEVEL 4-6 Last administered on 11/01/16 21:27; Admin Dose 1 TAB; Start at 15:00 Morphine Sulfate (morphine) 2 mg Q4H PRN IV SEVERE PAIN LEVEL 7-10 Last administered on 10/27/16 14:32; Admin Dose 2 MG; Start 10/25/16 at 15:00 Magnesium Hydroxide (Milk Of Mag) 30 ml DAILY PRN PO CONSTIPATION; Start at 15:00 Sodium Biphosphate/ Sodium Phosphate (Fleet Enema) 133 ml DAILY PRN [place] CONSTIPATION; Start 10/25/16 at 15:00 Heparin Sodium (Porcine) (Heparin (5000 Units/0.5 ml)) 5,000 unit Q12 SC Last administered on 11/02/16 08:36; Admin Dose 5,000 UNIT; Start 10/25/16 at 21:00 Lorazepam (Ativan) 0.5 mg Q6H PRN IV ANXIETY; Start 10/25/16 at 15:00 Hydralazine HCl (Apresoline) 10 mg Q6H PRN IV ELEVATED BLOOD PRESSURE; Start at 15:00 Nitroglycerin (Nitroglycerin (Sl Tab) 0.4 Mg) 1 tab Q5M PRN SL ANGINA; Start at 15:00 Aspirin (Halfprin) 81 mg DAILY PO Last administered on 11/02/16 08:29; Admin Dose 81 MG; Start 10/26/16 at 09:00 Atorvastatin Calcium (Lipitor) 80 mg HS PO Last administered on 11/01/16 21:28 ; Admin Dose 80 MG; Start 10/25/16 at 21:00 Clopidogrel Bisulfate (plaVIX) 75 mg DAILY PO Last administered on 11/02/16 08: 28; Admin Dose 75 MG; Start 10/26/16 at 09:00 Mirtazapine (Remeron) 7.5 mg HS PO Last administered on 11/01/16 21:30; Admin Dose 7.5 MG; Start 10/25/16 at 21:00 Montelukast Sodium (Singulair) 10 mg QHS PO Last administered on 11/01/16 21:28 ; Admin Dose 10 MG; Start 10/25/16 at 21:00 Azithromycin (Zithromax) 500 mg DAILY PO Last administered on 11/02/16 08:29; Admin Dose 500 MG; Start 10/26/16 at 15:00 Potassium Chloride (Klor-Con 20) 20 meq DAILY PO Last administered on 11/02/16 08:28; Admin Dose 20 MEQ; Start 10/28/16 at 09:00 Guaifenesin (Robitussin Liquid Cup) 200 mg Q4H PRN PO COUGH Last administered on 11/01/16 21:30; Admin Dose 200 MG; Start 10/29/16 at 11:30 Phenol (Cepastat Lozenge) 1 lozenge Q1H PRN [place] COUGH; Start 10/29/16 at 11:30 Pantoprazole 40 mg 40 mg DAILY@06 PO Last administered on 11/02/16 05:20; Admin Dose 40 MG; Start 10/30/16 at 06:00 Ceftriaxone Sodium (Rocephin) 50 ml @ 100 mls/hr Q24H IVPB Last administered on 11/02/16 16:26; Admin Dose 100 MLS/HR; Start 10/31/16 at 16:00 Salmeterol Xinafoate/ Fluticasone (Advair 250/50 Diskus) 1 inh BID INH Last administered on 11/02/16 15:16; Admin Dose 1 INH; Start 11/02/16 at 12:00 Docusate Sodium (Colace) 100 mg Q12H PO ; Start 11/03/16 at 03:00 GHADA VALENCIA MD November 02, 2016 21:02
[2016-11-02] MEDS: morphine 2 MG INJ IV PRN (21:13)
[2016-11-02] MEDS: ZOLPIDEM 5 MG TAB PO PRN (21:13)
[2016-11-03] VITALS (18 sets, daily range): BP systolic 112–154; BP diastolic 52–63; PULSE 37–83; RESP 18–24
[2016-11-03] MEDS: DOCUSATE SODIUM 100 MG CAP PO SCH ×3 (03:00→21:32)
[2016-11-03] MEDS: PANTOPRAZOLE (EC) 40 MG TAB PO SCH (06:00)
[2016-11-03] MEDS ORDERED: POLYMYXIN/BACITRACIN 1L IRRIG IRR SCH (08:00)
[2016-11-03 08:18] LABS: ADD SCAN DIFF NO
[2016-11-03] MEDS: ALBUTEROL/IPRATROPIUM (NEB) 3 ML AMP HHN SCH ×4 (08:24→20:12)
[2016-11-03 08:36] LABS: INR 0.96; PROTIME 12.8 Sec (12.2-14.2)
[2016-11-03 08:37] LABS: BASOPHILS % 0.3 % (0.0-2.0); EOSINOPHILS # 0.2 10^3/ul (0.0-0.5); EOSINOPHILS % 1.8 % (0.0-7.0); HEMOGLOBIN 11.6 g/dl (12.0-16.0); LYMPHOCYTES # 2.8 10^3/ul (0.8-2.9); LYMPHOCYTES % 26.4 % (15.0-51.0); MEAN CORPUSCULAR HEMOGLOBIN 29.6 pg (29.0-33.0); MEAN CORPUSCULAR HGB CONC 31.4 g/dl (32.0-37.0); MEAN CORPUSCULAR VOLUME 94.4 fl (82.0-101.0); MEAN PLATELET VOLUME 8.8 fl (7.4-10.4); MONOCYTE # 0.8 10^3/ul (0.3-0.9); MONOCYTES % 7.4 % (0.0-11.0); NEUTROPHIL # 6.8 10^3/ul (1.6-7.5); NEUTROPHILS % 63.5 % (39.0-77.0); RED BLOOD COUNT 3.92 10^6/ul (4.20-5.40); RED CELL DISTRIBUTION WIDTH 12.7 % (11.5-14.5); WHITE BLOOD COUNT 10.7 10^3/ul (4.8-10.8)
[2016-11-03 08:48] LABS: CALCIUM 9.6 mg/dl (8.4-10.2); CREATININE 1.47 mg/dl (0.44-1.00); POTASSIUM 5.5 mmol/L (3.5-5.1)
[2016-11-03 08:54] LABS: PLATELET COUNT 695 10^3/UL (140-415)
--- NOTE | 2016-11-03 09:16 | PN ---
Date/Time of Note Date/Time of Note DATE: 11/03/16 TIME: 09:14 Assessment/Plan VTE Prophylaxis VTE Prophylaxis Intervention: heparin Lines/Catheters [facility] Urinary Cath still in place: No Assessment/Plan Assessment/Plan 71-year-old female coming in with shortness of breath and cough managed for 1. Acute resp failure 2/2 #2 and #3 : unable to wean to room air 2. CHF exacerbation - diastolic: improved? 3. L sided pneumonia with mild pleural effusion 4. Acute Renal insufficiency on CKD: 2/2 diuretic use: improved 5. Known Coronary artery disease status post STEMI + stent placement x3 in the past. 6. 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 Essential hypertension. 8. Dyslipidemia 9. Paroxysmal Afib 10. Leucocytosis: ?reactive 11. COPD with chronic interstitial lung disease 12. Bradycardia with 3.1 sec pause 13. Hyperkalemia PLAN: * hyperkalemia: will repeat in a few hours, patient got lasix this am * Continue to wean oxygen / bronchodilator therapy. Patient may require home O2 , case mgrs to arrange * Pacemaker tentatively scheduled for today, consent signed and in chart * Supportive care Gastrointestinal prophylaxis, proton pump inhibitor. Deep venous thrombosis prophylaxis, heparin subcutaneously. Subjective 24 Hr Interval Summary Free Text/Dictation Patient seen and examined. daughter at bedside, no complaints Exam/Review of Systems Vital Signs Vitals Vital Signs Date Time Temp Pulse Resp B/P Pulse Ox O2 Delivery O2 Flow Rate FiO2 11/03/16 08:25 64 18 81 21 11/03/16 08:25 6.0 11/03/16 08:06 98.3 115/53 11/02/16 20:49 Nasal Cannula Intake and Output 11/02/16 11/02/16 11/03/16 15:00 23:00 07:00 Intake Total 100 ml 120 ml Balance 100 ml 120 ml Exam GENERAL: alert, still requiring oxygen via NC HEENT: Pupils equal, round, react to light. Extraocular muscles intact. NECK: Supple, no thyromegaly. LUNGS: fairly good aeration actually better on the L CARDIOVASCULAR: S1, S2 heard. No rubs or gallops. ABDOMEN: Soft, nontender, nondistended. Normal bowel sounds. No rebound or guarding. MUSCULOSKELETAL: less edema NEUROLOGIC: L sided hemiparesis, chronic Results Result Diagram: 11/03/16 0755 11/03/16 0755 Results 24 hrs Laboratory Tests Test 11/02/16 10:10 11/02/16 20:59 11/03/16 07:55 White Blood Count 10.6 10.7 Red Blood Count 4.03 L 3.92 L Hemoglobin 11.7 L 11.6 L Hematocrit 38.1 37.0 Mean Corpuscular Volume 94.5 94.4 Mean Corpuscular Hemoglobin 29.0 29.6 Mean Corpuscular Hemoglobin Concent 30.7 L 31.4 L Red Cell Distribution Width 12.7 12.7 Platelet Count 670 H 695 H Mean Platelet Volume 8.9 8.8 Neutrophils % 65.1 63.5 Lymphocytes % 24.5 26.4 Monocytes % 7.6 7.4 Eosinophils % 1.9 1.8 Basophils % 0.3 0.3 Nucleated Red Blood Cells % 0.0 0.0 Neutrophils # 6.9 6.8 Lymphocytes # 2.6 2.8 Monocytes # 0.8 0.8 Eosinophils # 0.2 0.2 Basophils # 0.0 0.0 Nucleated Red Blood Cells # 0.0 0.0 Sodium Level 137 135 Potassium Level 4.3 5.5 H Chloride Level 92 L 98 Carbon Dioxide Level 32 H 30 Anion Gap 17 H 13 Blood Urea Nitrogen 24 H 25 H Creatinine 1.68 H 1.47 H Glucose Level 153 116 Calcium Level 9.2 9.6 Bedside Glucose 152 Prothrombin Time 12.8 Prothrombin Time Ratio 1.0 INR International Normalized Ratio 0.96 Medications Medications Current Medications Ondansetron HCl (Zofran Inj) 4 mg Q6H PRN IV NAUSEA AND/OR VOMITING; Start at 15:00 Acetaminophen (Tylenol Tab) 650 mg Q6H PRN PO PAIN LEVEL 1-3 OR FEVER Last administered on 10/31/16 14:42; Admin Dose 650 MG; Start 10/25/16 at 15:00 Acetaminophen/ Hydrocodone Bitart ([place] (5/325)) 1 tab Q6H PRN PO MODERATE PAIN LEVEL 4-6 Last administered on 11/01/16 21:27; Admin Dose 1 TAB; Start at 15:00 Morphine Sulfate (morphine) 2 mg Q4H PRN IV SEVERE PAIN LEVEL 7-10 Last administered on 11/02/16 21:13; Admin Dose 2 MG; Start 10/25/16 at 15:00 Magnesium Hydroxide (Milk Of Mag) 30 ml DAILY PRN PO CONSTIPATION; Start at 15:00 Sodium Biphosphate/ Sodium Phosphate (Fleet Enema) 133 ml DAILY PRN [place] CONSTIPATION; Start 10/25/16 at 15:00 Heparin Sodium (Porcine) (Heparin (5000 Units/0.5 ml)) 5,000 unit Q12 SC Last administered on 11/02/16 21:08; Admin Dose 5,000 UNIT; Start 10/25/16 at 21:00 Lorazepam (Ativan) 0.5 mg Q6H PRN IV ANXIETY; Start 10/25/16 at 15:00 Hydralazine HCl (Apresoline) 10 mg Q6H PRN IV ELEVATED BLOOD PRESSURE; Start at 15:00 Nitroglycerin (Nitroglycerin (Sl Tab) 0.4 Mg) 1 tab Q5M PRN SL ANGINA; Start at 15:00 Aspirin (Halfprin) 81 mg DAILY PO Last administered on 11/02/16 08:29; Admin Dose 81 MG; Start 10/26/16 at 09:00 Atorvastatin Calcium (Lipitor) 80 mg HS PO Last administered on 11/02/16 21:01 ; Admin Dose 80 MG; Start 10/25/16 at 21:00 Clopidogrel Bisulfate (plaVIX) 75 mg DAILY PO Last administered on 11/02/16 08: 28; Admin Dose 75 MG; Start 10/26/16 at 09:00 Mirtazapine (Remeron) 7.5 mg HS PO Last administered on 11/02/16 21:01; Admin Dose 7.5 MG; Start 10/25/16 at 21:00 Montelukast Sodium (Singulair) 10 mg QHS PO Last administered on 11/02/16 21:01 ; Admin Dose 10 MG; Start 10/25/16 at 21:00 Azithromycin (Zithromax) 500 mg DAILY PO Last administered on 11/02/16 08:29; Admin Dose 500 MG; Start 10/26/16 at 15:00 Potassium Chloride (Klor-Con 20) 20 meq DAILY PO Last administered on 11/02/16 08:28; Admin Dose 20 MEQ; Start 10/28/16 at 09:00 Guaifenesin (Robitussin Liquid Cup) 200 mg Q4H PRN PO COUGH Last administered on 11/01/16 21:30; Admin Dose 200 MG; Start 10/29/16 at 11:30 Phenol (Cepastat Lozenge) 1 lozenge Q1H PRN MT COUGH; Start 10/29/16 at 11:30 Pantoprazole 40 mg 40 mg DAILY@06 PO Last administered on 11/02/16 05:20; Admin Dose 40 MG; Start 10/30/16 at 06:00 Ceftriaxone Sodium (Rocephin) 50 ml @ 100 mls/hr Q24H IVPB Last administered on 11/02/16 16:26; Admin Dose 100 MLS/HR; Start 10/31/16 at 16:00 Salmeterol Xinafoate/ Fluticasone (Advair 250/50 Diskus) 1 inh BID INH Last administered on 11/02/16 21:00; Admin Dose 1 INH; Start 11/02/16 at 12:00 Docusate Sodium (Colace) 100 mg Q12H PO ; Start 11/03/16 at 03:00 Bacitracin/ Polymyxin B Sulfate (Pb Solution) 1,000 ml ONCE IRR ; Start 11/03/16 at 08:00; Stop 11/03/16 at 13:00 LELAND MCMILLAN November 03, 2016 09:16
[2016-11-03] MEDS: AZITHROMYCIN 250 MG TAB PO SCH (10:11)
[2016-11-03] MEDS: CLOPIDOGREL 75 MG TAB PO SCH (10:11)
[2016-11-03] MEDS: ASPIRIN (EC) 81 MG TAB PO SCH (10:11)
[2016-11-03] MEDS: POTASSIUM CHLORIDE (SR) 20 MEQ TAB PO SCH (10:11)
[2016-11-03] MEDS: SALMETEROL/FLUTICASONE 250/50 INHA INH SCH ×2 (10:12→20:49)
[2016-11-03] MEDS: HEPARIN 5,000 UNIT/0.5 ML VIAL SC SCH (10:34)
[2016-11-03] MEDS ORDERED: hydrALAzine 20 MG INJ IV PRN (12:30)
[2016-11-03] MEDS ORDERED: MEPERIDINE 25 MG INJ IV PRN (12:30)
[2016-11-03] MEDS ORDERED: DIPHENHYDRAMINE 50 MG INJ IV PRN (12:30)
[2016-11-03] MEDS ORDERED: ONDANSETRON 4 MG INJ IV PRN (12:30)
[2016-11-03] MEDS ORDERED: LABETALOL HCL 20MG INJ IV PRN (12:30)
[2016-11-03] MEDS ORDERED: EPHEDrine SULFATE 50 MG/5 ML SYG IV PRN (12:30)
[2016-11-03] MEDS ORDERED: FENTAnyl 50 MCG/ML VIAL IV PRN ×3 (12:30)
--- NOTE | 2016-11-03 12:59 | CONS ---
Date/Time of Note Date/Time of Note DATE: 11/03/16 TIME: 12:56 Assessment/Plan Assessment/Plan Chief Complaint/Hosp Course IMPRESSION: 1. Congestive heart failure would be diastolic by most recent echo December 2015, which revealed an EF of 60% to 65%. EF this admit EF 60/NL EF. Improved volume status 2. Abnormal electrocardiogram, assess for acute coronary syndrome with negative troponins x3. 3. History of percutaneous transluminal coronary angioplasty and stent placement, most recently 2013 at the time of STEMI. 4. History of ST elevation myocardial infarction. 5. Upper respiratory infection/pneumonia. 6. Renal failure-worsening? overdiuresis/poor cardiac output from [facility] 7. Anemia. 8. Leukocytosis. 9. Bradycardia symptomatic- to 30's and associated pause 10.Hyperkalemia today and was given baseline KCL repletion Recc: -Tele -Continue asa/plavix -Continue statin -Continue to hold lasix and follow creatnine -Follow promotion specialist/volume status closely -Continue abx's/bronchodilators -PPM given [facility]/pause possibly today/maintain NPO -treat elevated k with kayexalate Problems: Consultation Date/Type/Reason Admit Date/Time Oct 25, 2016 at 14:22 Initial Consult Date 10/26/16 Type of Consultation: Cardiology Reason for Consultation CHF/bradycardia Referring Provider: ALISON RYDER MD Exam/Review of Systems Vital Signs Vitals Vital Signs Date Time Temp Pulse Resp B/P Pulse Ox O2 Delivery O2 Flow Rate FiO2 11/03/16 12:42 72 18 98 Nasal Cannula 6.0 11/03/16 11:04 98.2 132/62 11/03/16 08:25 21 Intake and Output 11/02/16 11/02/16 11/03/16 15:00 23:00 07:00 Intake Total 100 ml 120 ml Balance 100 ml 120 ml Exam Review of Systems: CONSTITUTIONAL: No fevers, chills. PULMONARY: mild sob CARDIOVASCULAR: No chest pain/palpitations GASTROINTESTINAL: No nausea/vomiting. GENITOURINARY: No hematuria/dysuria. MUSCULOSKELETAL: No myagias/arthalgias. PSYCHIATRIC: The patient denies depression. NEUROLOGIC: mild generalized weakness Constitutional: alert Psych: no complaints Head: normocephalic ENMT: mucosa pink and moist Neck: jvd (9 cm water), supple Respiratory: diminished breath sounds (at bases/B) Cardiovascular: regular rate and rhythm Gastrointestinal: non-tender, soft Musculoskeletal: muscle tone (normal) Extremities: edema (none) Neurological: other (No focal deficits) Results Result Diagram: 11/03/16 0755 11/03/16 0755 Results 24 hrs Laboratory Tests Test 11/02/16 20:59 11/03/16 07:55 Bedside Glucose 152 White Blood Count 10.7 Red Blood Count 3.92 L Hemoglobin 11.6 L Hematocrit 37.0 Mean Corpuscular Volume 94.4 Mean Corpuscular Hemoglobin 29.6 Mean Corpuscular Hemoglobin Concent 31.4 L Red Cell Distribution Width 12.7 Platelet Count 695 H Mean Platelet Volume 8.8 Neutrophils % 63.5 Lymphocytes % 26.4 Monocytes % 7.4 Eosinophils % 1.8 Basophils % 0.3 Nucleated Red Blood Cells % 0.0 Neutrophils # 6.8 Lymphocytes # 2.8 Monocytes # 0.8 Eosinophils # 0.2 Basophils # 0.0 Nucleated Red Blood Cells # 0.0 Prothrombin Time 12.8 Prothrombin Time Ratio 1.0 INR International Normalized Ratio 0.96 Sodium Level 135 Potassium Level 5.5 H Chloride Level 98 Carbon Dioxide Level 30 Anion Gap 13 Blood Urea Nitrogen 25 H Creatinine 1.47 H Glucose Level 116 Calcium Level 9.6 Medications Medications Current Medications Ondansetron HCl (Zofran Inj) 4 mg Q6H PRN IV NAUSEA AND/OR VOMITING; Start at 15:00 Acetaminophen (Tylenol Tab) 650 mg Q6H PRN PO PAIN LEVEL 1-3 OR FEVER Last administered on 10/31/16 14:42; Admin Dose 650 MG; Start 10/25/16 at 15:00 Acetaminophen/ Hydrocodone Bitart ([place] (5/325)) 1 tab Q6H PRN PO MODERATE PAIN LEVEL 4-6 Last administered on 11/01/16 21:27; Admin Dose 1 TAB; Start at 15:00 Morphine Sulfate (morphine) 2 mg Q4H PRN IV SEVERE PAIN LEVEL 7-10 Last administered on 11/02/16 21:13; Admin Dose 2 MG; Start 10/25/16 at 15:00 Magnesium Hydroxide (Milk Of Mag) 30 ml DAILY PRN PO CONSTIPATION; Start at 15:00 Sodium Biphosphate/ Sodium Phosphate (Fleet Enema) 133 ml DAILY PRN [place] CONSTIPATION; Start 10/25/16 at 15:00 Heparin Sodium (Porcine) (Heparin (5000 Units/0.5 ml)) 5,000 unit Q12 SC Last administered on 11/03/16 10:34; Admin Dose 5,000 UNIT; Start 10/25/16 at 21:00 Lorazepam (Ativan) 0.5 mg Q6H PRN IV ANXIETY; Start 10/25/16 at 15:00 Hydralazine HCl (Apresoline) 10 mg Q6H PRN IV ELEVATED BLOOD PRESSURE; Start at 15:00 Nitroglycerin (Nitroglycerin (Sl Tab) 0.4 Mg) 1 tab Q5M PRN SL ANGINA; Start at 15:00 Aspirin (Halfprin) 81 mg DAILY PO Last administered on 11/03/16 10:11; Admin Dose 81 MG; Start 10/26/16 at 09:00 Atorvastatin Calcium (Lipitor) 80 mg HS PO Last administered on 11/02/16 21:01 ; Admin Dose 80 MG; Start 10/25/16 at 21:00 Clopidogrel Bisulfate (plaVIX) 75 mg DAILY PO Last administered on 11/03/16 10: 11; Admin Dose 75 MG; Start 10/26/16 at 09:00 Mirtazapine (Remeron) 7.5 mg HS PO Last administered on 11/02/16 21:01; Admin Dose 7.5 MG; Start 10/25/16 at 21:00 Montelukast Sodium (Singulair) 10 mg QHS PO Last administered on 11/02/16 21:01 ; Admin Dose 10 MG; Start 10/25/16 at 21:00 Azithromycin (Zithromax) 500 mg DAILY PO Last administered on 11/03/16 10:11; Admin Dose 500 MG; Start 10/26/16 at 15:00 Potassium Chloride (Klor-Con 20) 20 meq DAILY PO Last administered on 11/03/16 10:11; Admin Dose 20 MEQ; Start 10/28/16 at 09:00 Guaifenesin (Robitussin Liquid Cup) 200 mg Q4H PRN PO COUGH Last administered on 11/01/16 21:30; Admin Dose 200 MG; Start 10/29/16 at 11:30 Phenol (Cepastat Lozenge) 1 lozenge Q1H PRN MT COUGH; Start 10/29/16 at 11:30 Pantoprazole 40 mg 40 mg DAILY@06 PO Last administered on 11/02/16 05:20; Admin Dose 40 MG; Start 10/30/16 at 06:00 Ceftriaxone Sodium (Rocephin) 50 ml @ 100 mls/hr Q24H IVPB Last administered on 11/02/16 16:26; Admin Dose 100 MLS/HR; Start 10/31/16 at 16:00 Salmeterol Xinafoate/ Fluticasone (Advair 250/50 Diskus) 1 inh BID INH Last administered on 11/03/16 10:12; Admin Dose 1 INH; Start 11/02/16 at 12:00 Docusate Sodium (Colace) 100 mg Q12H PO ; Start 11/03/16 at 03:00 Bacitracin/ Polymyxin B Sulfate (Pb Solution) 1,000 ml ONCE IRR ; Start 11/03/16 at 08:00; Stop 11/03/16 at 13:00 DANIS CORTES November 03, 2016 12:59
[2016-11-03] MEDS ORDERED: NA POLYST SULFON 15 GM/60 ML BTL PO ONE ×2 (13:00→13:30)
[2016-11-03 13:05] LABS: POTASSIUM 4.9 mmol/L (3.5-5.1)
[2016-11-03 13:08] LABS: CREATININE 1.48 mg/dl (0.44-1.00)
[2016-11-03 13:09] LABS: CALCIUM 9.7 mg/dl (8.4-10.2)
--- NOTE | 2016-11-03 13:33 | RADRPT ---
PROCEDURE: XR Chest. CLINICAL INDICATION: Shortness of breath. TECHNIQUE: Single frontal view. COMPARISON: 10/31/2016. FINDINGS: Surgical clips are present in the left side of the neck. There is mild pulmonary edema, improved. The lungs are otherwise clear. The heart is mildly enlarged. There is calcification in the aorta consistent with atherosclerosis. There is no pleural effusion. There is no pneumothorax. IMPRESSION: 1. Improved appearance of the lungs. 2. No other change from 10/31/2016. RPTAT: QQ .Ashish Mason MD, MD Date Time Electronically viewed and signed by .Ashish Mason MD, MD on 11/03/2016 13:33 .R/
[2016-11-03] MEDS: CEFTRIAXONE 1 GM/50 ML (PMX) 50 ML IVPB SCH (16:49)
[2016-11-03] MEDS ORDERED: FENTAnyl 50 MCG/ML VIAL ONE (17:09)
[2016-11-03] MEDS ORDERED: MIDAZOLAM 1 MG/ML 2 ML INJ ONE (17:09)
[2016-11-03] MEDS ORDERED: PROPOFOL 100 ML ONE (17:09)
[2016-11-03] MEDS ORDERED: CEFAZOLIN 2 GM/50 ML (PMX) 50 ML IVPB ONE (17:12)
[2016-11-03] MEDS ORDERED: PROPOFOL 100 ML IV SCH (17:30)
--- NOTE | 2016-11-03 17:45 | PN ---
Date/Time of Note Date/Time of Note DATE: 11/03/16 TIME: 17:44 Assessment/Plan VTE Prophylaxis VTE Prophylaxis Intervention: other Lines/Catheters IV [facility] Urinary Cath still in place: No Assessment/Plan Chief Complaint/Hosp Course IMPRESSION: 1. The patient has acute congestive heart failure.better 2. Acute kidney injury due to congestive heart failure, possible systolic heart failure.better 3. The patient has hypokalemia better 4. Hypocalcemia. 5. Elevated BNP. 6. History of paroxysmal atrial fibrillation. 7. History of left carotid endarterectomy. 8. History of congestive heart failure. 9 und ckd plan ck bmp Problems: Subjective 24 Hr Interval Summary Respiratory: no complaints Exam/Review of Systems Vital Signs Vitals Vital Signs Date Time Temp Pulse Resp B/P Pulse Ox O2 Delivery O2 Flow Rate FiO2 11/03/16 16:23 49 18 93 Nasal Cannula 6.0 11/03/16 15:50 98.0 135/60 11/03/16 08:25 21 Intake and Output 11/02/16 11/02/16 11/03/16 14:59 22:59 06:59 Intake Total 100 ml 120 ml Balance 100 ml 120 ml Exam Neck: supple Respiratory: clear to auscultation Cardiovascular: regular rate and rhythm Gastrointestinal: soft Results Result Diagram: 11/03/16 0755 11/03/16 1225 Results 24 hrs Laboratory Tests Test 11/02/16 20:59 11/03/16 07:55 11/03/16 12:25 Bedside Glucose 152 White Blood Count 10.7 Red Blood Count 3.92 L Hemoglobin 11.6 L Hematocrit 37.0 Mean Corpuscular Volume 94.4 Mean Corpuscular Hemoglobin 29.6 Mean Corpuscular Hemoglobin Concent 31.4 L Red Cell Distribution Width 12.7 Platelet Count 695 H Mean Platelet Volume 8.8 Neutrophils % 63.5 Lymphocytes % 26.4 Monocytes % 7.4 Eosinophils % 1.8 Basophils % 0.3 Nucleated Red Blood Cells % 0.0 Neutrophils # 6.8 Lymphocytes # 2.8 Monocytes # 0.8 Eosinophils # 0.2 Basophils # 0.0 Nucleated Red Blood Cells # 0.0 Prothrombin Time 12.8 Prothrombin Time Ratio 1.0 INR International Normalized Ratio 0.96 Sodium Level 135 139 Potassium Level 5.5 H 4.9 Chloride Level 98 97 Carbon Dioxide Level 30 29 Anion Gap 13 18 H Blood Urea Nitrogen 25 H 24 H Creatinine 1.47 H 1.48 H Glucose Level 116 154 Calcium Level 9.6 9.7 Magnesium Level 2.5 Medications Medications Current Medications Ondansetron HCl (Zofran Inj) 4 mg Q6H PRN IV NAUSEA AND/OR VOMITING; Start at 15:00 Acetaminophen (Tylenol Tab) 650 mg Q6H PRN PO PAIN LEVEL 1-3 OR FEVER Last administered on 10/31/16 14:42; Admin Dose 650 MG; Start 10/25/16 at 15:00 Acetaminophen/ Hydrocodone Bitart ([place] (5/325)) 1 tab Q6H PRN PO MODERATE PAIN LEVEL 4-6 Last administered on 11/01/16 21:27; Admin Dose 1 TAB; Start at 15:00 Morphine Sulfate (morphine) 2 mg Q4H PRN IV SEVERE PAIN LEVEL 7-10 Last administered on 11/02/16 21:13; Admin Dose 2 MG; Start 10/25/16 at 15:00 Magnesium Hydroxide (Milk Of Mag) 30 ml DAILY PRN PO CONSTIPATION; Start at 15:00 Sodium Biphosphate/ Sodium Phosphate (Fleet Enema) 133 ml DAILY PRN [place] CONSTIPATION; Start 10/25/16 at 15:00 Heparin Sodium (Porcine) (Heparin (5000 Units/0.5 ml)) 5,000 unit Q12 SC Last administered on 11/03/16 10:34; Admin Dose 5,000 UNIT; Start 10/25/16 at 21:00 Lorazepam (Ativan) 0.5 mg Q6H PRN IV ANXIETY; Start 10/25/16 at 15:00 Hydralazine HCl (Apresoline) 10 mg Q6H PRN IV ELEVATED BLOOD PRESSURE; Start at 15:00 Nitroglycerin (Nitroglycerin (Sl Tab) 0.4 Mg) 1 tab Q5M PRN SL ANGINA; Start at 15:00 Aspirin (Halfprin) 81 mg DAILY PO Last administered on 11/03/16 10:11; Admin Dose 81 MG; Start 10/26/16 at 09:00 Atorvastatin Calcium (Lipitor) 80 mg HS PO Last administered on 11/02/16 21:01 ; Admin Dose 80 MG; Start 10/25/16 at 21:00 Clopidogrel Bisulfate (plaVIX) 75 mg DAILY PO Last administered on 11/03/16 10: 11; Admin Dose 75 MG; Start 10/26/16 at 09:00 Mirtazapine (Remeron) 7.5 mg HS PO Last administered on 11/02/16 21:01; Admin Dose 7.5 MG; Start 10/25/16 at 21:00 Montelukast Sodium (Singulair) 10 mg QHS PO Last administered on 11/02/16 21:01 ; Admin Dose 10 MG; Start 10/25/16 at 21:00 Azithromycin (Zithromax) 500 mg DAILY PO Last administered on 11/03/16 10:11; Admin Dose 500 MG; Start 10/26/16 at 15:00 Potassium Chloride (Klor-Con 20) 20 meq DAILY PO Last administered on 11/03/16 10:11; Admin Dose 20 MEQ; Start 10/28/16 at 09:00; Status Future Hold Guaifenesin (Robitussin Liquid Cup) 200 mg Q4H PRN PO COUGH Last administered on 11/01/16 21:30; Admin Dose 200 MG; Start 10/29/16 at 11:30 Phenol (Cepastat Lozenge) 1 lozenge Q1H PRN MT COUGH; Start 10/29/16 at 11:30 Pantoprazole 40 mg 40 mg DAILY@06 PO Last administered on 11/02/16 05:20; Admin Dose 40 MG; Start 10/30/16 at 06:00 Ceftriaxone Sodium (Rocephin) 50 ml @ 100 mls/hr Q24H IVPB Last administered on 11/03/16 16:49; Admin Dose 100 MLS/HR; Start 10/31/16 at 16:00 Salmeterol Xinafoate/ Fluticasone (Advair 250/50 Diskus) 1 inh BID INH Last administered on 11/03/16 10:12; Admin Dose 1 INH; Start 11/02/16 at 12:00 Docusate Sodium (Colace) 100 mg Q12H PO Last administered on 11/03/16 13:37; Admin Dose 100 MG; Start 11/03/16 at 03:00 GHADA VALENCIA MD November 03, 2016 17:45
[2016-11-03] MEDS ORDERED: ACETAMINOPHEN 325 MG TAB PO PRN (18:30)
[2016-11-03] MEDS ORDERED: morphine 2 MG INJ IV PRN (18:30)
--- NOTE | 2016-11-03 20:43 | RADRPT ---
PROCEDURE: XR Chest. CLINICAL INDICATION: Shortness of breath. TECHNIQUE: AP Portable chest. COMPARISON: 11/26/2015 FINDINGS: The cardiomediastinal silhouette is normal. The lungs are clear. The osseous structures are unrema rkable. A left chest cardiac device is seen with lead in the right ventricle. No definite retained foreign bodies identified at the operative bed. IMPRESSION: No acute findings. RPTAT: HIKT .Justice Henrdix MD, MD Date Time Electronically viewed and signed by .Justice Hendrix MD, on 11/03/2016 20:43 .T/
[2016-11-03] MEDS: ATORVASTATIN 80 MG TAB PO SCH (20:48)
[2016-11-03] MEDS: MONTELUKAST 10 MG TAB PO SCH (20:48)
[2016-11-03] MEDS: MIRTAZAPINE 15 MG TAB PO SCH (20:48)
[2016-11-03] MEDS: morphine 2 MG INJ IV PRN (20:49)
[2016-11-03] MEDS: HYDROCODONE/APAP (5/325) TAB PO PRN (21:32)
[2016-11-03] MEDS: ZOLPIDEM 5 MG TAB PO PRN (21:35)
[2016-11-03] MEDS ORDERED: CEFAZOLIN 1 GM/50 ML (PMX) 50 ML IVPB SCH (22:00)
--- NOTE | 2016-11-03 22:14 | SP ---
DATE OF PROCEDURE: REFERRING PHYSICIAN: Dr. Shaw Mcdonnell MD and Dr. Yunier Cosme MD. REASON FOR EVALUATION: Sick sinus syndrome, 3 second pause with symptoms. DEVICE INFORMATION: Implanted device is [employer] Assurity MRI device 1272, serial #[id number]. RV lead is [employer] Tendril MRI lead LPA 1200, 52 cm, CBA [id number]. Acute threshold R-wave was 12.0 millivolts, lead impedance 350 ohms, threshold 0.745 volts at 0.4 ms ec. DESCRIPTION OF PROCEDURE: The informed consent was obtained. The patient brought into the cath lab manager for medical optimization. Anesthesiologist supervised airway and sedation. The left side of the c hest was prepped and draped in the usual sterile fashion, 1% lidocaine was used for local anesthesia . Using #10 scalpel, the incision was made. Using cautery and blunt dissection, the pocket was cre ated. Using modified Seldinger technique, subclavian was cannulated and J-wire went easily. No con trast was used because the patient is in renal failure. The patient using 8-[place] sheath as a guid e with advanced RV lead in the RV apex and was actively ____ the apex. Some slack was left inside t he sheath and the sheath was pulled away. The lead was sutured to the muscle layer over the sleeve with 0 Ethibond sutures. The lead was attached to the generator. Pocket was irrigated with antibio tic solution and entire system was placed inside the pocket. The skin was closed in multiple layers of 2-0 Vicryl suture. Steri-Strip was applied on top of the incision. The patient appears to have tolerated the procedure well. She will be monitored overnight. Continue to follow now. Thank you to Dr. Cosme and Dr. Mcdonnell for referring this patient for my evaluation. Dictated By: AUGUSTO BALTAZAR/OMERO Conf#: [id number] DID#: [id number]
[2016-11-03] MEDS: ACETAMINOPHEN 325 MG TAB PO PRN (22:36)
[2016-11-04] VITALS (10 sets, daily range): BP systolic 118–157; BP diastolic 54–70; PULSE 66–78; RESP 16–18
[2016-11-04] MEDS: PANTOPRAZOLE (EC) 40 MG TAB PO SCH (04:49)
[2016-11-04] MEDS: HYDROCODONE/APAP (5/325) TAB PO PRN (04:51)
[2016-11-04 06:50] LABS: ADD SCAN DIFF NO
[2016-11-04 07:02] LABS: BASOPHILS % 0.3 % (0.0-2.0); EOSINOPHILS # 0.1 10^3/ul (0.0-0.5); EOSINOPHILS % 1.3 % (0.0-7.0); HEMATOCRIT 35.6 % (37.0-47.0); HEMOGLOBIN 11.1 g/dl (12.0-16.0); LYMPHOCYTES % 21.1 % (15.0-51.0); MEAN CORPUSCULAR HEMOGLOBIN 29.4 pg (29.0-33.0); MEAN CORPUSCULAR HGB CONC 31.2 g/dl (32.0-37.0); MEAN CORPUSCULAR VOLUME 94.4 fl (82.0-101.0); MEAN PLATELET VOLUME 8.9 fl (7.4-10.4); NEUTROPHIL # 6.2 10^3/ul (1.6-7.5); NEUTROPHILS % 65.8 % (39.0-77.0); PLATELET COUNT 648 10^3/UL (140-415); RED BLOOD COUNT 3.77 10^6/ul (4.20-5.40); WHITE BLOOD COUNT 9.5 10^3/ul (4.8-10.8)
[2016-11-04 07:28] LABS: POTASSIUM 4.1 mmol/L (3.5-5.1)
[2016-11-04 07:31] LABS: CREATININE 1.28 mg/dl (0.44-1.00)
[2016-11-04 07:32] LABS: CALCIUM 8.9 mg/dl (8.4-10.2)
[2016-11-04] MEDS: morphine 2 MG INJ IV PRN ×2 (07:38→13:14)
[2016-11-04] MEDS: ALBUTEROL/IPRATROPIUM (NEB) 3 ML AMP HHN SCH ×4 (08:22→21:00)
[2016-11-04] MEDS: SALMETEROL/FLUTICASONE 250/50 INHA INH SCH ×2 (08:36→21:00)
[2016-11-04] MEDS: CLOPIDOGREL 75 MG TAB PO SCH (08:36)
[2016-11-04] MEDS: ACETAMINOPHEN 325 MG TAB PO PRN ×2 (08:36→21:10)
[2016-11-04] MEDS: ASPIRIN (EC) 81 MG TAB PO SCH (08:36)
[2016-11-04] MEDS: AZITHROMYCIN 250 MG TAB PO SCH (08:36)
--- NOTE | 2016-11-04 10:05 | CONS ---
Date/Time of Note Date/Time of Note DATE: 11/04/16 TIME: 10:03 Assessment/Plan Assessment/Plan Chief Complaint/Hosp Course 1. Acute kidney injury due to congestive heart failure, possible systolic heart failure. 2. The patient has acute congestive heart failure.better 4. Hypocalcemia. 5. Elevated BNP. 6. History of paroxysmal atrial fibrillation. 7. History of left carotid endarterectomy. Problems: Additional Assessment/Plan 1.Kidney function optimization Consultation Date/Type/Reason Admit Date/Time Oct 25, 2016 at 14:22 Initial Consult Date 10/26/16 Type of Consultation: Nephrology Reason for Consultation Dr Alberto Referring Provider: ALISON RYDER MD Exam/Review of Systems Vital Signs Vitals Vital Signs Date Time Temp Pulse Resp B/P Pulse Ox O2 Delivery O2 Flow Rate FiO2 11/04/16 08:52 78 11/04/16 08:22 3.0 11/04/16 08:22 20 93 Nasal Cannula 11/04/16 07:00 98.9 130/59 11/03/16 08:25 21 Intake and Output 11/03/16 11/03/16 11/04/16 15:00 23:00 07:00 Intake Total 60 ml 500 ml Output Total 100 ml Balance -40 ml 500 ml Exam Constitutional: alert, distress Psych: no complaints Head: normocephalic Eyes: nl conjunctiva ENMT: nl external ears & nose Neck: supple Respiratory: diminished breath sounds Cardiovascular: regular rate and rhythm Gastrointestinal: soft Results Result Diagram: 11/04/16 0605 11/04/16 0605 Results 24 hrs Laboratory Tests Test 11/03/16 12:25 11/04/16 06:05 Sodium Level 139 140 Potassium Level 4.9 4.1 Chloride Level 97 98 Carbon Dioxide Level 29 30 Anion Gap 18 H 16 Blood Urea Nitrogen 24 H 25 H Creatinine 1.48 H 1.28 H Glucose Level 154 213 Calcium Level 9.7 8.9 Magnesium Level 2.5 White Blood Count 9.5 Red Blood Count 3.77 L Hemoglobin 11.1 L Hematocrit 35.6 L Mean Corpuscular Volume 94.4 Mean Corpuscular Hemoglobin 29.4 Mean Corpuscular Hemoglobin Concent 31.2 L Red Cell Distribution Width 13.0 Platelet Count 648 H Mean Platelet Volume 8.9 Neutrophils % 65.8 Lymphocytes % 21.1 Monocytes % 11.0 Eosinophils % 1.3 Basophils % 0.3 Nucleated Red Blood Cells % 0.0 Neutrophils # 6.2 Lymphocytes # 2.0 Monocytes # 1.0 H Eosinophils # 0.1 Basophils # 0.0 Nucleated Red Blood Cells # 0.0 Medications Medications Current Medications Ondansetron HCl (Zofran Inj) 4 mg Q6H PRN IV NAUSEA AND/OR VOMITING; Start at 15:00 Acetaminophen (Tylenol Tab) 650 mg Q6H PRN PO PAIN LEVEL 1-3 OR FEVER Last administered on 11/04/16 08:36; Admin Dose 650 MG; Start 10/25/16 at 15:00 Acetaminophen/ Hydrocodone Bitart ([place] (5/325)) 1 tab Q6H PRN PO MODERATE PAIN LEVEL 4-6 Last administered on 11/04/16 04:51; Admin Dose 1 TAB; Start at 15:00 Morphine Sulfate (morphine) 2 mg Q4H PRN IV SEVERE PAIN LEVEL 7-10 Last administered on 11/04/16 07:38; Admin Dose 2 MG; Start 10/25/16 at 15:00 Magnesium Hydroxide (Milk Of Mag) 30 ml DAILY PRN PO CONSTIPATION; Start at 15:00 Sodium Biphosphate/ Sodium Phosphate (Fleet Enema) 133 ml DAILY PRN [place] CONSTIPATION; Start 10/25/16 at 15:00 Lorazepam (Ativan) 0.5 mg Q6H PRN IV ANXIETY; Start 10/25/16 at 15:00 Hydralazine HCl (Apresoline) 10 mg Q6H PRN IV ELEVATED BLOOD PRESSURE; Start at 15:00 Nitroglycerin (Nitroglycerin (Sl Tab) 0.4 Mg) 1 tab Q5M PRN SL ANGINA; Start at 15:00 Aspirin (Halfprin) 81 mg DAILY PO Last administered on 11/04/16 08:36; Admin Dose 81 MG; Start 10/26/16 at 09:00 Atorvastatin Calcium (Lipitor) 80 mg HS PO Last administered on 11/03/16 20:48 ; Admin Dose 80 MG; Start 10/25/16 at 21:00 Clopidogrel Bisulfate (plaVIX) 75 mg DAILY PO Last administered on 11/04/16 08: 36; Admin Dose 75 MG; Start 10/26/16 at 09:00 Mirtazapine (Remeron) 7.5 mg HS PO Last administered on 11/03/16 20:48; Admin Dose 7.5 MG; Start 10/25/16 at 21:00 Montelukast Sodium (Singulair) 10 mg QHS PO Last administered on 11/03/16 20:48 ; Admin Dose 10 MG; Start 10/25/16 at 21:00 Azithromycin (Zithromax) 500 mg DAILY PO Last administered on 11/04/16 08:36; Admin Dose 500 MG; Start 10/26/16 at 15:00 Potassium Chloride (Klor-Con 20) 20 meq DAILY PO Last administered on 11/03/16 10:11; Admin Dose 20 MEQ; Start 10/28/16 at 09:00; Status Future Hold Guaifenesin (Robitussin Liquid Cup) 200 mg Q4H PRN PO COUGH Last administered on 11/01/16 21:30; Admin Dose 200 MG; Start 10/29/16 at 11:30 Phenol (Cepastat Lozenge) 1 lozenge Q1H PRN MT COUGH; Start 10/29/16 at 11:30 Pantoprazole 40 mg 40 mg DAILY@06 PO Last administered on 11/04/16 04:49; Admin Dose 40 MG; Start 10/30/16 at 06:00 Ceftriaxone Sodium (Rocephin) 50 ml @ 100 mls/hr Q24H IVPB Last administered on 11/03/16 16:49; Admin Dose 100 MLS/HR; Start 10/31/16 at 16:00 Salmeterol Xinafoate/ Fluticasone (Advair 250/50 Diskus) 1 inh BID INH Last administered on 11/04/16 08:36; Admin Dose 1 INH; Start 11/02/16 at 12:00 Docusate Sodium (Colace) 100 mg Q12H PO Last administered on 11/03/16 21:32; Admin Dose 100 MG; Start 11/03/16 at 03:00 Miscellaneous Information (* Miscellaneous Pharmacy Order) HOLD all METFORMIN ... ONCE XX ; Start 11/03/16 at 18:30; Stop 11/05/16 at 18:29 Acetaminophen (Tylenol Tab) 650 mg Q4H PRN PO NON-CARDIAC PAIN LEVEL (1-3); Start 11/03/16 at 18:30 Morphine Sulfate (morphine) 2 mg Q2H PRN IV FOR NON CARDIAC PAIN (4-10); Start 11/03/16 at 18:30 Miscellaneous Information (* Miscellaneous Pharmacy Order) DC all Lovenox, Hepari... ONCE XX ; Start 11/03/16 at 18:30 TIFFANIE PAT November 04, 2016 10:05
[2016-11-04] MEDS ORDERED: ADV25050 INH (11:22)
[2016-11-04] MEDS ORDERED: IPRA3AMP HHN ×2 (11:22)
[2016-11-04] MEDS ORDERED: DOCU-216 PO (11:22)
[2016-11-04] MEDS ORDERED: ISOS30TA5 PO (11:27)
[2016-11-04] MEDS ORDERED: FURO-110 PO (11:27)
[2016-11-04] MEDS ORDERED: METO25TA7 PO (11:27)
[2016-11-04] MEDS ORDERED: POTA20LI5 PO (11:27)
--- NOTE | 2016-11-04 11:30 | PDOCDIS ---
Discharge Instructions DIAGNOSIS Discharge Diagnosis: CHF, bradycardia CONDITION Patient Condition: Stable HOME CARE INSTRUCTIONS: Special Diet: mech soft ACTIVITY: Activity Restrictions: Slowly Increase Activity Rest between Activity OTHER ORDERS: Other Orders: Followup with your primary doctor within the next 1-2 weeks. If you don't have one please let someone know, we can give you resources that may help you pick one. You may call Dr Kelvin Llamas's office. he's accepting new patients Name, Degree: Kelvin Llamas MD Specialty: Internal Medicine Comments: Office Address: [address] [place] [address] [place] [address] Office Office You may also call your insurance company to assign one to you. Review your medication list with your nurse before leaving and if you need new prescriptions please let your nurse know. I may have made changes to your home medications or given you new prescriptions , please let your primary doctor know as well. Stay compliant with your medications and report any side effects to your PCP or pharmacist. Return to the ER if you have any concerns and cannot reach your doctors or call your insurance company, they usually have a nurse that can help you. LELAND MCMILLAN November 04, 2016 11:30
--- NOTE | 2016-11-04 13:24 | DS ---
Date/Time of Note Date/Time of Note DATE: 11/04/16 TIME: 13:16 Discharge Summary Admission/Discharge Info Admit Date/Time Oct 25, 2016 at 14:22 Discharge Date/Time 11/04/16 Final Diagnosis 71-year-old female coming in with shortness of breath and cough managed for 1. Acute resp failure 2/2 #11 : improved Now requiring Chronic Oxygen therapy 2. CHF exacerbation - diastolic: now compensated 3. L sided pneumonia with mild pleural effusion 4. Acute Renal insufficiency on CKD: 2/2 diuretic use: improved 5. Known Coronary artery disease status post STEMI + stent placement x3 in the past. 6. 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 Essential hypertension: controlled 8. Dyslipidemia 9. Paroxysmal Afib 10. Leucocytosis: resolved 11. COPD with chronic interstitial lung disease 12. Bradycardia with 3.1 sec pause 13. Hyperkalemia: resolved . Patient Condition: Stable Consults * Yunier Cosme: cardiology * Foster Norton: EPS * Mikel Alberto: Nephrology * Beck Can: pulmonary . Hospital Course This is a 71-year-old female who is bedbound because of a history of a stroke with residual left-sided hemiparesis cared for at home with her daughter and a 24 hour caregiver who was brought in for an acute episode of shortness of breath. She was in respiratory failure requiring BiPAP therapy upon admission. She was found to be in congestive heart failure exacerbation and a probable left-sided pneumonia superimposed on the on underlying COPD. She was treated with diuresis as well as antibiotics. She did well however during her hospitalization she was found to be severely bradycardic and had 3.1 second pause. She was reviewed by electrophysiology who determined that she needed a pacemaker. Pacemaker was placed October 04, 2016. She is doing well now and has been assessed by myself, vital signs are stable and a physical examination is benign. She was seen by physical therapy and commenced on bed exercises with a goal of teaching her how to transfer from bed to wheelchair or to a bedside chair on her own. She is being discharged home in stable condition with home health for physical therapy as well as nursing care. She was also found to have a urinary tract infection and was treated with antibiotics for that as well. She had multiple imaging studies including chest x-rays and a CT scan of her chest, for official reports, please review the patient's chart. She will however be discharged on home oxygen therapy at 2 L a minute. . Home Meds Active Scripts Isosorbide Mononitrate* (Isosorbide Mononitrate*) 30 Mg Tab.er.24h, 30 MG PO DAILY for 30 Days, TAB 2 Refills Prov:LELAND MCMILLAN . 11/04/16 Metoprolol Succinate* (Toprol XL*) 25 Mg Tab.sr.24h, 25 MG PO DAILY, #30 TAB 2 Refills Prov:LELAND MCMILLAN . 11/04/16 Furosemide* (Lasix*) 20 Mg Tablet, 20 MG PO DAILY for 30 Days, TAB [facility] . 11/04/16 Potassium Chloride* (Potassium Chloride*) 20 Meq/15 Ml Liquid, 10 MEQ PO DAILY for 30 Days, ML Prov:11/04/16 Docusate Sodium (Dok) 100 Mg Capsule, 100 MG PO Q12H for 30 Days, CAP 2 [facility] . 11/04/16 Salmeterol Xinaf/Fluticasone* (Advair*) 250-50 Diskus Inhaler, 1 INH INH BID, # 1 VIAL 2 Refills Prov:LELAND MCMILLAN . 11/04/16 Ipratropium-Albuterol (Ipratropium-Albuterol) 0.5-3 Mg/3 Ml Ampul.neb, 3 ML HHN Q4H RESP THERAPY Y for SHORTNESS OF BREATH for 30 Days Prov:LELAND MCMILLAN 11/04/16 Ipratropium-Albuterol (Ipratropium-Albuterol) 0.5-3 Mg/3 Ml Ampul.neb, 3 ML HHN Q6H, #60 2 Refills Prov:LELAND MCMILLAN . 11/04/16 Amiodarone Hcl* (Amiodarone Hcl*) 200 Mg Tablet, 200 MG PO DAILY for 30 Days, # 30 TAB Prov:RADHA PEÑA MD 12/06/15 Reported Medications Mirtazapine* (Mirtazapine*) 7.5 Mg Tablet, 7.5 MG PO HS, TAB 10/25/16 Aspirin* (Aspirin* EC) 81 Mg Tablet.dr, 81 MG PO DAILY, TAB 10/25/16 Zolpidem Tartrate* (Zolpidem Tartrate*) 10 Mg Tablet, 10 MG PO QHS Y for INSOMNIA, #30 TAB 10/25/16 Pantoprazole* (Pantoprazole*) 40 Mg Tablet.dr, 40 MG PO AC BREAKFAST, TAB 10/25/16 Amlodipine Besylate* (Amlodipine Besylate*) 10 Mg Tablet, 10 MG PO DAILY, #30 TAB 10/25/16 Montelukast Sodium* (Singulair*) 10 Mg Tablet, 10 MG PO QHS, #30 TAB 11/26/15 Clopidogrel Bisulfate (Clopidogrel) 75 Mg Tablet, 75 MG PO DAILY, #30 TAB 11/26/15 Atorvastatin* (Atorvastatin*) 80 Mg Tablet, 80 MG PO HS, TAB 03/01/14 Nitroglycerin* (Nitroglycerin* SL) 0.4 Mg Tab.subl, 0.4 MG SL Q5MIN Y for CHEST PAIN, BOTTLE 03/01/14 Discontinued Reported Medications Metoprolol Succinate* (Toprol XL*) 50 Mg Tab.er.24h, 50 MG PO DAILY, #30 TAB 10/25/16 Isosorbide Mononitrate* (Isosorbide Mononitrate*) 60 Mg Tab.er.24h, 60 MG PO DAILY, TAB 10/25/16 Pending Labs Laboratory Tests Test 11/04/16 06:05 White Blood Count 9.510^3/ul (4.8-10.8) Red Blood Count 3.7710^6/ul (4.20-5.40) Hemoglobin 11.1g/dl (12.0-16.0) Hematocrit 35.6% (37.0-47.0) Mean Corpuscular Volume 94.4fl (82.0-101.0) Mean Corpuscular Hemoglobin 29.4pg (29.0-33.0) Mean Corpuscular Hemoglobin Concent 31.2g/dl (32.0-37.0) Red Cell Distribution Width 13.0% (11.5-14.5) Platelet Count 39320^3/UL (140-415) Mean Platelet Volume 8.9fl (7.4-10.4) Neutrophils % 65.8% (39.0-77.0) Lymphocytes % 21.1% (15.0-51.0) Monocytes % 11.0% (0.0-11.0) Eosinophils % 1.3% (0.0-7.0) Basophils % 0.3% (0.0-2.0) Nucleated Red Blood Cells % 0.0/100WBC (0.0-0.0) Neutrophils # 6.210^3/ul (1.6-7.5) Lymphocytes # 2.010^3/ul (0.8-2.9) Monocytes # 1.010^3/ul (0.3-0.9) Eosinophils # 0.110^3/ul (0.0-0.5) Basophils # 0.010^3/ul (0.0-0.1) Nucleated Red Blood Cells # 0.010^3/ul (0.0-0.0) Sodium Level 140mmol/L (135-144) Potassium Level 4.1mmol/L (3.5-5.1) Chloride Level 98mmol/L (97-110) Carbon Dioxide Level 30mmol/L (21-31) Anion Gap 16 (8-16) Blood Urea Nitrogen 25mg/dl (7-20) Creatinine 1.28mg/dl (0.44-1.00) Glucose Level 213mg/dl (70-220) Calcium Level 8.9mg/dl (8.4-10.2) LELAND MCMILLAN November 04, 2016 13:24
--- NOTE | 2016-11-04 14:33 | CONS ---
Date/Time of Note Date/Time of Note DATE: 11/04/16 TIME: 14:29 Assessment/Plan Assessment/Plan Chief Complaint/Hosp Course IMPRESSION: 1. Congestive heart failure would be diastolic by most recent echo December 2015, which revealed an EF of 60% to 65%. EF this admit EF 60/NL EF. Improved volume status 2. Abnormal electrocardiogram, assess for acute coronary syndrome with negative troponins x3. 3. History of percutaneous transluminal coronary angioplasty and stent placement, most recently 2013 at the time of STEMI. 4. History of ST elevation myocardial infarction. 5. Upper respiratory infection/pneumonia. 6. Renal failure-worsening? overdiuresis/poor cardiac output from [facility] 7. Anemia. 8. Leukocytosis. 9. 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 -Continue abx's/bronchodilators -Resume low dose BB -Abx prophylaxis x 4 days additional for skin giana/PPM -f/u in my office 10-14 days for wound check [phone] Problems: Consultation Date/Type/Reason Admit Date/Time Oct 25, 2016 at 14:22 Initial Consult Date 10/26/16 Type of Consultation: Cardiology Reason for Consultation arrythmia/CHf Referring Provider: ALISON RYDER MD Exam/Review of Systems Vital Signs Vitals Vital Signs Date Time Temp Pulse Resp B/P Pulse Ox O2 Delivery O2 Flow Rate FiO2 11/04/16 13:10 65 18 94 Nasal Cannula 3.0 11/04/16 10:58 98.6 118/54 11/03/16 08:25 21 Intake and Output 11/03/16 11/03/16 11/04/16 15:00 23:00 07:00 Intake Total 60 ml 500 ml Output Total 100 ml Balance -40 ml 500 ml Exam Review of Systems: CONSTITUTIONAL: No fevers, chills. PULMONARY: No sob CARDIOVASCULAR: No chest pain/palpitations GASTROINTESTINAL: No nausea/vomiting. GENITOURINARY: No hematuria/dysuria. MUSCULOSKELETAL: No myagias/arthalgias. PSYCHIATRIC: The patient denies depression. NEUROLOGIC: No weakness Constitutional: alert Psych: no complaints Head: normocephalic ENMT: mucosa pink and moist Neck: jvd (8 cm water), supple Respiratory: clear to auscultation Cardiovascular: other (L upper chest covered by dressing with no sig bleeding/ swelling), regular rate and rhythm Gastrointestinal: non-tender, soft Musculoskeletal: other (No focal deficits) Extremities: edema (none) Neurological: lethargic Results Result Diagram: 11/04/16 0611/04/16 06 Results 24 hrs Laboratory Tests Test 11/04/16 06:05 White Blood Count 9.5 Red Blood Count 3.77 L Hemoglobin 11.1 L Hematocrit 35.6 L Mean Corpuscular Volume 94.4 Mean Corpuscular Hemoglobin 29.4 Mean Corpuscular Hemoglobin Concent 31.2 L Red Cell Distribution Width 13.0 Platelet Count 648 H Mean Platelet Volume 8.9 Neutrophils % 65.8 Lymphocytes % 21.1 Monocytes % 11.0 Eosinophils % 1.3 Basophils % 0.3 Nucleated Red Blood Cells % 0.0 Neutrophils # 6.2 Lymphocytes # 2.0 Monocytes # 1.0 H Eosinophils # 0.1 Basophils # 0.0 Nucleated Red Blood Cells # 0.0 Sodium Level 140 Potassium Level 4.1 Chloride Level 98 Carbon Dioxide Level 30 Anion Gap 16 Blood Urea Nitrogen 25 H Creatinine 1.28 H Glucose Level 213 Calcium Level 8.9 Medications Medications Current Medications Ondansetron HCl (Zofran Inj) 4 mg Q6H PRN IV NAUSEA AND/OR VOMITING; Start at 15:00 Acetaminophen (Tylenol Tab) 650 mg Q6H PRN PO PAIN LEVEL 1-3 OR FEVER Last administered on 11/04/16 08:36; Admin Dose 650 MG; Start 10/25/16 at 15:00 Acetaminophen/ Hydrocodone Bitart ([place] (5/325)) 1 tab Q6H PRN PO MODERATE PAIN LEVEL 4-6 Last administered on 11/04/16 04:51; Admin Dose 1 TAB; Start at 15:00 Morphine Sulfate (morphine) 2 mg Q4H PRN IV SEVERE PAIN LEVEL 7-10 Last administered on 11/04/16 13:14; Admin Dose 2 MG; Start 10/25/16 at 15:00 Magnesium Hydroxide (Milk Of Mag) 30 ml DAILY PRN PO CONSTIPATION; Start at 15:00 Sodium Biphosphate/ Sodium Phosphate (Fleet Enema) 133 ml DAILY PRN [place] CONSTIPATION; Start 10/25/16 at 15:00 Lorazepam (Ativan) 0.5 mg Q6H PRN IV ANXIETY; Start 10/25/16 at 15:00 Hydralazine HCl (Apresoline) 10 mg Q6H PRN IV ELEVATED BLOOD PRESSURE; Start at 15:00 Nitroglycerin (Nitroglycerin (Sl Tab) 0.4 Mg) 1 tab Q5M PRN SL ANGINA; Start at 15:00 Aspirin (Halfprin) 81 mg DAILY PO Last administered on 11/04/16 08:36; Admin Dose 81 MG; Start 10/26/16 at 09:00 Atorvastatin Calcium (Lipitor) 80 mg HS PO Last administered on 11/03/16 20:48 ; Admin Dose 80 MG; Start 10/25/16 at 21:00 Clopidogrel Bisulfate (plaVIX) 75 mg DAILY PO Last administered on 11/04/16 08: 36; Admin Dose 75 MG; Start 10/26/16 at 09:00 Mirtazapine (Remeron) 7.5 mg HS PO Last administered on 11/03/16 20:48; Admin Dose 7.5 MG; Start 10/25/16 at 21:00 Montelukast Sodium (Singulair) 10 mg QHS PO Last administered on 11/03/16 20:48 ; Admin Dose 10 MG; Start 10/25/16 at 21:00 Azithromycin (Zithromax) 500 mg DAILY PO Last administered on 11/04/16 08:36; Admin Dose 500 MG; Start 10/26/16 at 15:00 Potassium Chloride (Klor-Con 20) 20 meq DAILY PO Last administered on 11/03/16 10:11; Admin Dose 20 MEQ; Start 10/28/16 at 09:00; Status Future Hold Guaifenesin (Robitussin Liquid Cup) 200 mg Q4H PRN PO COUGH Last administered on 11/01/16 21:30; Admin Dose 200 MG; Start 10/29/16 at 11:30 Phenol (Cepastat Lozenge) 1 lozenge Q1H PRN MT COUGH; Start 10/29/16 at 11:30 Pantoprazole 40 mg 40 mg DAILY@06 PO Last administered on 11/04/16 04:49; Admin Dose 40 MG; Start 10/30/16 at 06:00 Ceftriaxone Sodium (Rocephin) 50 ml @ 100 mls/hr Q24H IVPB Last administered on 11/03/16 16:49; Admin Dose 100 MLS/HR; Start 10/31/16 at 16:00 Salmeterol Xinafoate/ Fluticasone (Advair 250/50 Diskus) 1 inh BID INH Last administered on 11/04/16 08:36; Admin Dose 1 INH; Start 11/02/16 at 12:00 Docusate Sodium (Colace) 100 mg Q12H PO Last administered on 11/03/16 21:32; Admin Dose 100 MG; Start 11/03/16 at 03:00 Miscellaneous Information (* Miscellaneous Pharmacy Order) HOLD all METFORMIN ... ONCE XX ; Start 11/03/16 at 18:30; Stop 11/05/16 at 18:29 Acetaminophen (Tylenol Tab) 650 mg Q4H PRN PO NON-CARDIAC PAIN LEVEL (1-3) Last administered on 11/04/16 13:14; Admin Dose 650 MG; Start 11/03/16 at 18:30 Morphine Sulfate (morphine) 2 mg Q2H PRN IV FOR NON CARDIAC PAIN (4-10); Start 11/03/16 at 18:30 Miscellaneous Information (* Miscellaneous Pharmacy Order) DC all Lovenox, Hepari... ONCE XX ; Start 11/03/16 at 18:30 DANIS CORTES November 04, 2016 14:33
[2016-11-04] MEDS: DOCUSATE SODIUM 100 MG CAP PO SCH (15:00)
[2016-11-04] MEDS: CEFTRIAXONE 1 GM/50 ML (PMX) 50 ML IVPB SCH (16:01)
--- NOTE | 2016-11-04 16:38 | RADRPT ---
Vent Rate: 47 bpm RR Interval: 0 msec [place] Interval: 224 msec QRS Duration: 88 msec QT Interval: 664 msec QTC Interval: 587 msec P-R-T [place]: 51 - 27 - 35 degrees Sinus bradycardia with sinus arrhythmia with 1st degree AV block Anteroseptal infarct , age undetermined Prolonged QT Abnormal ECG Electronically Signed By: Yunier Cosme [id number]
--- NOTE | 2016-11-04 16:40 | RADRPT ---
Vent Rate: 72 bpm RR Interval: 0 msec [place] Interval: 202 msec QRS Duration: 88 msec QT Interval: 458 msec QTC Interval: 501 msec P-R-T [place]: 86 - 21 - 31 degrees Normal sinus rhythm with sinus arrhythmia Anterior infarct , age undetermined Abnormal ECG Electronically Signed By: Yunier Cosme [id number]
--- NOTE | 2016-11-04 16:41 | RADRPT ---
Vent Rate: 75 bpm RR Interval: 0 msec [place] Interval: 212 msec QRS Duration: 88 msec QT Interval: 460 msec QTC Interval: 513 msec P-R-T [place]: 75 - 23 - 46 degrees Sinus rhythm with sinus arrhythmia with 1st degree AV block Anteroseptal infarct , age undetermined Prolonged QT Abnormal ECG Electronically Signed By: Yunier Cosme [id number]
[2016-11-04] MEDS: ATORVASTATIN 80 MG TAB PO SCH (21:09)
[2016-11-04] MEDS: MIRTAZAPINE 15 MG TAB PO SCH (21:09)
[2016-11-04] MEDS: MONTELUKAST 10 MG TAB PO SCH (21:09)
== END 2016-11-04 22:08 | disposition home health service (06) | DRG 258 ==
LOC: E/R 11:50 → TEL 14:22
PROVIDERS: ADMIT Family Medicine; ATTEND Family Medicine
PROC: 0JH604Z Insertion of Pacemaker, Single Chamber into Chest Subcutaneous Tissue and Fascia, Open Approach (ICD-10-PCS; principal; 2016-11-03)
DX: I11.0 Hypertensive heart disease with heart failure (principal); J18.0 Bronchopneumonia, unspecified organism; J96.00 Acute respiratory failure, unspecified whether with hypoxia or hypercapnia; N17.9 Acute kidney failure, unspecified; R00.1 Bradycardia, unspecified; I42.9 Cardiomyopathy, unspecified; I48.0 Paroxysmal atrial fibrillation; I69.354 Hemiplegia and hemiparesis following cerebral infarction affecting left non-dominant side; J44.1 Chronic obstructive pulmonary disease with (acute) exacerbation; I50.33 Acute on chronic diastolic (congestive) heart failure; I25.10 Atherosclerotic heart disease of native coronary artery without angina pectoris; E83.51 Hypocalcemia; E78.5 Hyperlipidemia, unspecified; G47.00 Insomnia, unspecified; D64.9 Anemia, unspecified; K20.9 Esophagitis, unspecified; K29.70 Gastritis, unspecified, without bleeding; E87.6 Hypokalemia; E87.5 Hyperkalemia; I25.2 Old myocardial infarction; Z87.891 Personal history of nicotine dependence; Z95.5 Presence of coronary angioplasty implant and graft; Z79.02 Long term (current) use of antithrombotics/antiplatelets; Z79.82 Long term (current) use of aspirin
CPT/HCPCS: 36415; 36600; 71010; 71250; 76775; 80048; 80053; 80061; 81001; 81003; 82550; 82553; 82570; 82803; 82962; 83036; 83605; 83735; 83880; 84100; 84155; 84300; 84439; 84443; 84484; 85025; 85610; 85730; 87040; 87086; 92526; 92610; 93005; 93306; 93970; 94640; 94664; 94760; 96365; 96366; 96368; 96375; 97110; 97162; 97530; J1940; C1786; C1898; C2629; J0690; J0692; J0696; J1644; J2250; J2270; J2543; J3010; J3370; J3480; J7030